=== PATIENT | female | born 1940 | race Caucasian/White ===

== ENCOUNTER → 2020-01-16 11:17 | Outpatient (CLI) | payer MEDICARE, MEDICAID, SELFPAY ==
--- NOTE | 2020-01-16 | DI.MRI.S_ITS ---
PROCEDURE: MR HIP LT WO CON INDICATIONS: Pain in left hip TECHNIQUE: Noncontrast coronal T1 spin echo and STIR through the bony pelvis. Coronal and axial STIR, sagittal T1 spin echo, and oblique axial STIR through the hip. COMPARISON: None. FINDINGS: Image quality: Excellent. Bones and joints: Bilateral total hip arthroplasties are seen with associated metallic artifact that obscures adjacent structures. Bone marrow of the pelvic ring show normal signal throughout. No intraosseous lesions or fractures. Degenerative changes are seen in the included portion of the lower lumbar spine with disc desiccation, degenerative endplate changes, and facet hypertrophy. Tendons and ligaments: There is mild tendinosis of the distal left gluteus medius and minimus tendons at their insertions onto the left greater trochanter within overlying small trochanteric effusion. The right gluteus tendons are intact. The iliopsoas tendon appears intact. The origin of the hamstring tendon is intact at the ischial tuberosity. The straight and reflected heads of the rectus femoris muscle origin appear intact, as well as the conjoint tendon. Soft tissues: There is mild diffuse fatty infiltration of the musculature surrounding the hips. The proximal sciatic neurovascular bundle appears normal adjacent to the hamstring tendons. No free pelvic fluid. Bladder wall thickness is normal. Genitourinary structures and bowel loops appear normal where visualized. IMPRESSION: 1. Bilateral total hip arthroplasties. No periarticular fluid collection or mass is seen. There is no acute trabecular bone injury. 2. Mild left distal gluteus medius and minimus tendinosis with an overlying small left trochanteric bursal effusion. 3. Degenerative changes are seen in the included portion of the lower lumbar spine. Dictated by: Dejon Pickard M.D. on 01/16/2020 at 13:50 Approved by: Dejon Pickard M.D. on 01/16/2020 at 14:01
== END ==
PROVIDERS: Family Provider Family Medicine; PCP Family Medicine; Referring Provider Family Medicine; Visit Provider Family Medicine
DX: M25.552 Pain in left hip (principal); M25.452 Effusion, left hip; M47.816 Spondylosis without myelopathy or radiculopathy, lumbar region; Z96.643 Presence of artificial hip joint, bilateral
CPT/HCPCS: 73721

== ENCOUNTER → 2020-08-29 11:08 | Outpatient (CLI) | payer MEDICARE, MEDICAID, SELFPAY | PROVIDERS: Family Provider Family Medicine; PCP Family Medicine; Visit Provider Physician Assistant Medical | DX: R81 Glycosuria (principal) | CPT/HCPCS: 87077; 87086; 87186 ==

== ENCOUNTER → 2020-09-20 13:41 | Outpatient (CLI) | payer MEDICARE, MEDICAID, SELFPAY ==
[2020-09-20 20:23] LABS: Appearance Urine UA CLEAR; Bilirubin Urine UA NEGATIVE (NEGATIVE); Color Urine UA YELLOW; Glucose Urine UA 1+ g/dL (Negative); Ketones Urine UA NEGATIVE (NEGATIVE); Leukocyte Esterase Urine UA NEGATIVE (NEGATIVE); Nitrite Urine UA NEGATIVE (Negative); Occult Blood Urine UA 2+ (Negative); Protein Urine UA 1+ (Negative); Urobilinogen Urine UA 0.2 E.U./dL (0.2)
[2020-09-20 20:42] LABS: Amorphous Sediment Urine 1+; Bacteria Urine Few (2-10); Mucus Urine 1+ (Negative); RBC Urine 10-30/HPF (0-5/HPF); Squamous Epithelial Cell Urine 1-5 /HPF (0-5/HPF); WBC Urine 10-30/HPF (0-5/HPF)
[2020-09-20 20:43] LABS: Culture Indicated Urine Specimen Cultured
== END ==
PROVIDERS: Family Provider Family Medicine; PCP Family Medicine; Visit Provider Physician Assistant Medical
DX: N39.0 Urinary tract infection, site not specified (principal); E11.65 Type 2 diabetes mellitus with hyperglycemia; N39.9 Disorder of urinary system, unspecified
CPT/HCPCS: 81001; 87077; 87086; 87186

== ENCOUNTER → 2020-10-15 16:53 | Outpatient (CLI) | payer MEDICARE, MEDICAID, SELFPAY | PROVIDERS: Family Provider Family Medicine; PCP Family Medicine; Visit Provider Family Medicine | DX: N39.0 Urinary tract infection, site not specified (principal); N39.9 Disorder of urinary system, unspecified | CPT/HCPCS: 87086 ==

== ENCOUNTER → 2020-10-26 11:29 | Outpatient (CLI) | payer MEDICARE, MEDICAID, SELFPAY ==
[2020-10-26 18:55] LABS: Add Manual Diff / Slide Review NO; Basophils Absolute Auto 0 /uL (0-100); Basophils Percent Auto 0.5 % (0-2); Eosinophils Absolute Auto 400 /uL (0-450); Eosinophils Percent Auto 4.6 % (2-4); Hematocrit 45.4 % (36-46); Hemoglobin 15.3 g/dL (12.0-16.0); Lymphocytes Absolute Auto 3400 /uL (1100-4500); Lymphocytes Percent Auto 43.9 % (25-40); Mean Corpuscular HGB Conc 33.7 % (30-36); Mean Corpuscular Hemoglobin 30.7 PG (26-34); Mean Corpuscular Volume 91.1 fL (80-100); Monocytes Absolute Auto 400 /uL (0-900); Monocytes Percent Auto 5.8 % (3-14); Neutrophils Absolute Auto 3500 /uL (1500-7000); Neutrophils Percent Auto 45.2 % (50-75); Platelet Count 203 X10^3/uL (150-400); Red Blood Cell Count 4.98 X10^6/uL (4.0-5.2); Red Cell Distribution Width 14.5 % (11.6-14.8); White Blood Cell Count 7.8 X10^3/uL (4.5-11.0)
[2020-10-26 19:01] LABS: Alanine Aminotransferase 80 IU/L (<35); Albumin 4.1 g/dL (3.5-5.0); Alkaline Phosphatase 108 U/L (38-126); Aspartate Aminotransferase 78 IU/L (14-36); BUN Creatinine Ratio 14.1 (6-22); Bilirubin Total 0.8 mg/dL (0.2-1.3); Blood Urea Nitrogen 9 mg/dL (7-17); Calcium 9.6 mg/dL (8.4-10.2); Carbon Dioxide 30 mmol/L (22-32); Chloride 100 mmol/L (98-107); Cholesterol 169 mg/dL (140-199); Estimated Glomerular Filt Rate > 60.0 mL/min (>60); Globulin 4.2 g/dL (1.7-4.1); Glucose 222 mg/dL (80-110); HDL Cholesterol 34 mg/dL (40-60); HEMOLYSIS < 15 (0-50); LDL Cholesterol Calculated 109 mg/dL (<100); Potassium 4.1 mmol/L (3.4-5.1); Sodium 139 mmol/L (137-145); Total Protein 8.3 g/dL (6.3-8.2); Triglycerides 131 mg/dL (35-150)
[2020-10-26 19:05] LABS: Hemoglobin A1C% w Est Avg Glu 9.6 % (4.0-6.0)
[2020-10-30 07:15] LABS: Insulin Level Total 21.9 uIU/mL (2.6-24.9)
== END ==
PROVIDERS: Family Provider Family Medicine; PCP Family Medicine; Visit Provider Family Medicine
DX: E11.65 Type 2 diabetes mellitus with hyperglycemia (principal); E66.9 Obesity, unspecified; E78.5 Hyperlipidemia, unspecified; I10 Essential (primary) hypertension
CPT/HCPCS: 80053; 80061; 83036; 83525; 85025

== ENCOUNTER → 2020-12-10 09:19 | Outpatient (CLI) | payer MEDICARE, MEDICAID, SELFPAY ==
[2020-12-10 20:01] LABS: Hemoglobin A1C% w Est Avg Glu 9.4 % (4.0-6.0)
[2020-12-10 20:08] LABS: Alanine Aminotransferase 99 IU/L (<35); Albumin 4.1 g/dL (3.5-5.0); Alkaline Phosphatase 102 U/L (38-126); Aspartate Aminotransferase 107 IU/L (14-36); BUN Creatinine Ratio 17.5 (6-22); Blood Urea Nitrogen 10 mg/dL (7-17); Calcium 9.6 mg/dL (8.4-10.2); Carbon Dioxide 24 mmol/L (22-32); Chloride 103 mmol/L (98-107); Estimated Glomerular Filt Rate > 60.0 mL/min (>60); Glucose 243 mg/dL (80-110); HEMOLYSIS 31 (0-50); Potassium 4.3 mmol/L (3.4-5.1); Sodium 139 mmol/L (137-145); Total Protein 8.1 g/dL (6.3-8.2)
== END ==
PROVIDERS: Family Provider Family Medicine; PCP Family Medicine; Visit Provider Family Medicine
DX: E11.65 Type 2 diabetes mellitus with hyperglycemia (principal); R74.01 Elevation of levels of liver transaminase levels
CPT/HCPCS: 80053; 83036

== ENCOUNTER → 2021-02-18 10:34 | Outpatient (CLI) | payer MEDICARE, MEDICAID, SELFPAY ==
[2021-02-18 20:05] LABS: BUN Creatinine Ratio 15.9 (6-22); Blood Urea Nitrogen 10 mg/dL (7-17); Calcium 9.9 mg/dL (8.4-10.2); Carbon Dioxide 30 mmol/L (22-32); Chloride 101 mmol/L (98-107); Cholesterol 198 mg/dL (140-199); Estimated Glomerular Filt Rate > 60.0 mL/min (>60); Glucose 217 mg/dL (80-110); HDL Cholesterol 39 mg/dL (40-60); HEMOLYSIS 16 (0-50); LDL Cholesterol Calculated 131 mg/dL (<100); Potassium 4.1 mmol/L (3.4-5.1); Sodium 141 mmol/L (137-145); Triglycerides 140 mg/dL (35-150)
== END ==
PROVIDERS: Family Provider Family Medicine; PCP Physician Assistant Medical; Visit Provider Family Medicine
DX: E11.65 Type 2 diabetes mellitus with hyperglycemia (principal)
CPT/HCPCS: 80048; 80061; 83036

== ENCOUNTER → 2021-04-15 13:47 | Outpatient (CLI) | payer MEDICARE, MEDICAID, SELFPAY ==
[2021-04-15 20:23] LABS: Hemoglobin A1C% w Est Avg Glu 7.3 % (4.0-6.0)
[2021-04-15 20:26] LABS: BUN Creatinine Ratio 17.6 (6-22); Blood Urea Nitrogen 13 mg/dL (7-17); Calcium 9.9 mg/dL (8.4-10.2); Carbon Dioxide 28 mmol/L (22-32); Chloride 101 mmol/L (98-107); Estimated Glomerular Filt Rate > 60.0 mL/min (>60); Glucose 234 mg/dL (80-110); HEMOLYSIS 20 (0-50); Sodium 142 mmol/L (137-145)
== END ==
PROVIDERS: Family Provider Family Medicine; PCP Physician Assistant Medical; Referring Provider Family Medicine; Visit Provider Family Medicine
DX: E11.65 Type 2 diabetes mellitus with hyperglycemia (principal)
CPT/HCPCS: 80048; 83036

== ENCOUNTER 2021-04-30 11:00 | Outpatient (RCR) | payer MEDICARE, MEDICAID, SELFPAY ==
--- NOTE | 2021-04-30 15:53 | PT.OIE ---
Current Diagnoses Bilateral primary osteoarthritis of hip (04/30/21) Past Medical History (Last Updated 04/05/21 @ 10:13 by Lowell Weathers DO) Bilateral primary osteoarthritis of hip H/O total hip arthroplasty Scoliosis Urinary tract disease (~2020) Past Surgical History (Last Updated 09/16/20 @ 15:11 by Alana Villalobos) Anesthesia H/O total hip arthroplasty Status post hernia repair Visit Care Team Role Provider Type Wenceslao Bynum MD Family Provider Non-Staff Specialty: [facility] Address: [address] [place] [address], [address], [place], [address] Email: Lowell Weathers DO Attending Provider Physician Primary Care Provider Referring Provider Specialty: [facility] Address: [address] [place] [address], [id number] Email: [email or web address] Physical Therapy Initial Evaluation PT-OP-A Visit Information Start: 04/25/21 10:32 Freq: Status: Active Protocol: Document 04/30/21 11:15 AMB (Rec: 04/30/21 15:44 AMB [email or web address]) Out-Patient Physical Therapy Visit Information Visit Information Visit Type Initial Evaluation Visit Start Time 11:15 Visit Stop Time 12:00 Total Visit Minutes 45 Visit Number 1 PT-OP-B Current Condition Start: 04/25/21 10:32 Freq: Status: Active Protocol: Document 04/30/21 11:16 AMB (Rec: 04/30/21 11:34 AMB [id number]) Current Condition History of Current Condition Onset Date 4 years ago Current Complaints L>R hip pain History of Current Condition L PUNEET 4 years ago. Pain has come and gone over the past 4 years. Walking makes the pain worse, ambulates in the community with the cane. Posterior approach bilateral. Notes deep ache, pain goes down the front of the leg and into the foot. Lying on the left side is the most comfortable. Sometimes feels like the leg could give way, but it hasn't. Ambulates in the community with a cane. Treatment Goals Patient/Caregiver Goals Walk with less pain and more stability. Personal Factors Other Personal Factors That May Effect Pt lives on [facility], and Therapy/Recovery half way through appointment states that she only wants to come to one appointment. PT-OP-G Mobility & Gait Start: 04/25/21 10:32 Freq: Status: Active Protocol: Document 04/30/21 11:15 AMB (Rec: 05/02/21 08:59 AMB [email or web address]) OP Mobility Evaluation Bed Mobility Rolling Difficult, heavy use of UEs, but pt independent OP Gait Assessment Comments Gait Comments Antalgic gait with WBOS PT-OP-M Strength Start: 04/25/21 10:32 Freq: Status: Active Protocol: Document 04/30/21 11:15 AMB (Rec: 05/02/21 08:59 AMB [email or web address]) Hip Strength Hip Manual Muscle Testing Right Flexion (L2) 4 Good Extension (S1) 4 Good Abduction 4 Good Left Flexion (L2) 3 Fair Extension (S1) 3- Fair- Abduction 3 Fair PT-OP-Q Treatments Start: 04/25/21 10:32 Freq: Status: Active Protocol: Document 04/30/21 11:15 AMB (Rec: 05/02/21 09:01 AMB [email or web address]) Therapeutic Exercises Sidelying Exercises 3 Sidelying Exercise Name mini squat Reps/Minutes 10 2 Sidelying Exercise Name bridge Reps/Minutes 10 1 Sidelying Exercise Name clam Reps/Minutes 10 Manual Therapy Treatment Other Other Manual Treatments instruction in self rolling with rolling pin or tennis ball over IT band PT-OP-T Assessment and Plan Start: 04/25/21 10:32 Freq: Status: Active Protocol: Document 04/30/21 11:15 AMB (Rec: 05/03/21 15:50 AMB [email or web address]) Physical Therapy Assessment Rehab Potential Rehabilitation Potential Good Evaluation Complexity Number of Personal Factors/Comorbidities 3 or More Number of Body Systems Impaired 3 Clinical Presentation at Evaluation Evolving Impairments Impairments Functional Activities, Functional Mobility,Pain, Strength Goals One Impairment HEP Short Term Goal (STG) Madeline will have a HEP for hip strengthening. STG Duration 1 week Assessment Summary Assessment Madeline attends physical therapy with chronic hip pain. She was apparently unaware of her hip MRI from 2019, and did discuss tendonitis of gluteus medius and minimis wiht her. She is not interested in follow up at this clinic at this time due to needing to take a ferry to PT. Did provide her a home exercise program that consisted of clamshells, bridges, mini squats, and rolling IT band with roller. Physical Therapy Plan Frequency and Duration Frequency of Treatment 1x/Week Duration of Treatment 1 week Plan of Care Start Date 04/30/21 Plan of Care End Date 05/07/21 Therapeutic Interventions Therapeutic Interventions Manual Therapy,Therapeutic Exercises Discharge Physical Therapy Discharge Reasons Patient Request Discharge Comments Pt did not want to schedule further due to distance of clinic from her home
--- NOTE | 2021-04-30 15:54 | PT.OPPOC ---
Physical, Occupational & Speech Therapy At [facility] Current Diagnoses Bilateral primary osteoarthritis of hip (04/30/21) Visit Care Team Role Provider Type Wenceslao Bynum MD Family Provider Non-Staff Specialty: Family Practice Address: [address] , [address], [place], [address] Email: Lowell Weathers DO Attending Provider Physician Primary Care Provider Referring Provider Specialty: Family Practice Address: [address] [place] [address], [id number] Email: [email or web address] Plan Of Care PT-OP-T Assessment and Plan Start: 04/25/21 10:32 Freq: Status: Active Protocol: Document 04/30/21 11:15 AMB (Rec: 05/03/21 15:50 AMB [email or web address]) Physical Therapy Assessment Rehab Potential Rehabilitation Potential Good Evaluation Complexity Number of Personal Factors/Comorbidities 3 or More Number of Body Systems Impaired 3 Clinical Presentation at Evaluation Evolving Impairments Impairments Functional Activities, Functional Mobility,Pain, Strength Goals One Impairment HEP Short Term Goal (STG) Madeline will have a HEP for hip strengthening. STG Duration 1 week Assessment Summary Assessment Madeline attends physical therapy with chronic hip pain. She was apparently unaware of her hip MRI from 2019, and did discuss tendonitis of gluteus medius and minimis wiht her. She is not interested in follow up at this clinic at this time due to needing to take a ferry to PT. Did provide her a home exercise program that consisted of clamshells, bridges, mini squats, and rolling IT band with roller. Physical Therapy Plan Frequency and Duration Frequency of Treatment 1x/Week Duration of Treatment 1 week Plan of Care Start Date 04/30/21 Plan of Care End Date 05/07/21 Therapeutic Interventions Therapeutic Interventions Manual Therapy,Therapeutic Exercises Discharge Physical Therapy Discharge Reasons Patient Request Discharge Comments Pt did not want to schedule further due to distance of clinic from her home Plan of Care Dates Plan of Care Start Date 04/30/21 Plan of Care End Date 05/07/21 Electronically Signed by: Kaleigh Matta, PT 05/03/21 1554 Please Sign and Return: I have reviewed this Plan of Care and certify that the skilled therapy services above are required to meet the patient?s needs. Physician Signature Date Printed Name and Credentials Clinical Instructor Signature Printed Name and Credentials
== END 2021-06-25 08:56 ==
LOC: PHYS 11:00
PROVIDERS: Family Provider Family Medicine; PCP Family Medicine; Referring Provider Family Medicine; Visit Provider Family Medicine
DX: M16.0 Bilateral primary osteoarthritis of hip (principal)
CPT/HCPCS: 97110; 97161

== ENCOUNTER → 2021-10-18 10:03 | Outpatient (CLI) | payer MEDICARE, MEDICAID, SELFPAY ==
[2021-10-18 18:44] LABS: Alanine Aminotransferase 36 IU/L (<35); Albumin 3.9 g/dL (3.5-5.0); Albumin Globulin Ratio 1.1 (1.0-2.8); Alkaline Phosphatase 70 U/L (38-126); Aspartate Aminotransferase 43 IU/L (14-36); BUN Creatinine Ratio 15.4 (6-22); Bilirubin Total 0.9 mg/dL (0.2-1.3); Blood Urea Nitrogen 12 mg/dL (7-17); Calcium 8.9 mg/dL (8.4-10.2); Carbon Dioxide 27 mmol/L (22-32); Chloride 104 mmol/L (98-107); Cholesterol 100 mg/dL (140-199); Estimated Glomerular Filt Rate > 60 mL/min (>60); Globulin 3.6 g/dL (1.7-4.1); Glucose 153 mg/dL (80-110); HDL Cholesterol 32 mg/dL (40-60); HEMOLYSIS < 15 (0-50); LDL Cholesterol Calculated 47 mg/dL (<100); Potassium 4.3 mmol/L (3.4-5.1); Sodium 142 mmol/L (137-145); Total Protein 7.5 g/dL (6.3-8.2); Triglycerides 106 mg/dL (35-150)
== END ==
PROVIDERS: Family Provider Family Medicine; PCP Family Medicine; Visit Provider Family Medicine
DX: I10 Essential (primary) hypertension (principal); E11.65 Type 2 diabetes mellitus with hyperglycemia; E11.49 Type 2 diabetes mellitus with other diabetic neurological complication; Z79.4 Long term (current) use of insulin
CPT/HCPCS: 80053; 80061; 83036

== ENCOUNTER 2021-11-14 21:18 | Inpatient (IN) | payer MEDICARE, MEDICAID, SELFPAY ==
[2021-11-14] VITALS (28 sets, daily range): BP systolic 142–247; BP diastolic 57–137; PULSE 63–78; RESP 24–43; TEMP 37.2; O2SAT 94–96
--- NOTE | 2021-11-14 21:45 | ED.GENADULT ---
HPI - General Adult General Chief complaint: Hypertension Stated complaint: high blood pressure Time Seen by Provider: 11/14/21 21:31 Source: patient and EMS Mode of arrival: EMS History of Present Illness HPI narrative: Patient stat flighted here from [place]. Patient has hypertensive urgency. Patient states has had recent visit with primary care Dr. Weathers in the past couple days for routine checkup for past history of stroke. No changes in medications. Does have history of high blood pressure. Was given 20 mg of IV labetalol by stat Flight nurse. No improvement. Arrival blood pressure here 247/111. Patient in no distress. Denies any headache chest pain palpitations dyspnea. No new neuro complaints. Nicardipine drip ordered, denies any headache. Patient denies any residual deficits from her stroke. Blood pressure November 05, 2021 in primary care office with Dr. Weathers 144/82. Office visit September 30, 2021 blood pressure 140/88. Related Data Home Medications Medication Instructions Recorded Confirmed aspirin 81 mg tablet,delayed 81 mg PO DAILY 08/09/21 08/09/21 release (Adult Aspirin Regimen) melatonin 3 mg capsule 3 mg PO BEDTIME PRN 08/09/21 08/09/21 sennosides 8.6 mg tablet (senna) 8.6 mg PO DAILY 08/09/21 08/09/21 Previous Rx's Medication Instructions Recorded sitagliptin 50 mg tablet 50 mg PO BID #60 tabs 07/19/21 chlorthalidone 25 mg tablet 25 mg PO DAILY #60 tabs 08/28/21 atorvastatin 80 mg tablet 80 mg PO DAILY #30 tabs 08/29/21 insulin aspart U-100 100 unit/mL 3 unit (0.03 mL) SUBCUT TID #3 mL 08/29/21 (3 mL) subcutaneous pen (Novolog Flexpen U-100 Insulin aspart) insulin glargine 100 unit/mL (3 20 unit (0.2 mL) SUBCUT QAM #3 mL 08/29/21 mL) subcutaneous pen (Lantus Solostar U-100 Insulin) pen needle, diabetic 32 gauge x #100 ea 09/18/21 (BD Mya 2nd Gen Pen Needle) clopidogrel 75 mg tablet 75 mg PO DAILY #30 tabs 09/30/21 gabapentin 100 mg capsule 200 mg PO BEDTIME #100 caps 09/30/21 hydralazine 25 mg tablet 25 mg PO TID #90 tabs 09/30/21 carvedilol 25 mg tablet See Rx Instructions .Route 10/15/21 .COMPLEX #90 tabs Allergies Allergy/AdvReac Type Severity Reaction Status Date / Time clonidine Allergy Verified 11/14/21 21:20 hydrochlorothiazide Allergy Verified 11/14/21 21:20 Sulfa (Sulfonamide Allergy RASH Verified 11/14/21 21:20 Antibiotics) amlodipine [AMLODIPINE] AdvReac Intermediate DIZZY, Verified 11/14/21 21:20 MEMORY LOSS lisinopril [LISINOPRIL] AdvReac Intermediate FATIGUE Verified 11/14/21 21:20 SODIUM TETRADECYL SULFATE Allergy Uncoded 12/17/20 14:46 clorine AdvReac Mild Uncoded 12/17/20 14:46 Review of Systems Review of Systems Narrative: GENERAL: Denies chills, fatigue, malaise, fever, sweats. HEENT: Denies sinus pain, ear pain, sore throat RESPIRATORY: Denies dyspnea, cough CARDIOVASCULAR: Denies chest pain, palpitations GASTROINTESTINAL: Denies nausea, vomiting, abdominal pain : Denies dysuria, frequency, hematuria MUSCULOSKELETAL: denies muscle or bony pain SKIN: Denies rash, skin lesions NEUROLOGIC: Denies weakness, numbness ROS Unobtainable: All systems reviewed & are unremarkable except as noted in HPI and below Patient History Medical History Bilateral primary osteoarthritis of hip Cerumen impaction Hypertension Scoliosis Urinary tract disease (~2020) Vision changes Surgical History Anesthesia H/O total hip arthroplasty Status post hernia repair Family History Brother Suicide Mother Old age Father MVA (motor vehicle accident) Social History household members: significant other Smoking Status: Former smoker Smoking Status: Former smoker Substance Use Type: marijuana Exam Narrative Exam Narrative: GENERAL: in no distress, not toxic not dyspneic HEAD: Normocephalic. EYES: Pupils equal round No scleral icterus. ENT: Mucous membranes moist. NECK: Trachea midline. CARDIOVASCULAR: Regular rate and rhythm without murmurs RESPIRATORY: Clear to auscultation. Breath sounds equal bilaterally. No wheezes, rales, or rhonchi. GASTROINTESTINAL: Abdomen soft, non-tender EXTREMITIES: No gross deformities. BACK: No flank tenderness. NEURO: AOx4. Clear speech, strong equal sales analytics manager and leg lifts. Light touch intact to bilateral face hands and legs. Negative pronator drift. No facial droop SKIN: Warm and dry PSYCH: Not anxious, is cooperative Initial Vital Signs Initial Vital Signs: Vital Signs Temperature 98.9 F 11/14/21 21:20 Pulse Rate 71 11/14/21 21:20 Respiratory Rate 24 11/14/21 21:20 Pulse Oximetry 95 11/14/21 21:20 Oxygen Delivery Method 11/14/21 21:20 Course Course Course Narrative: No new issues during course of stay Orders Ordered: Discontinued Medications Acetaminophen (Acetaminophen 325 Mg Tablet) 650 mg PO Q6HR PRN PRN Reason: Fever Aspirin (Aspirin Ec 81 Mg Tablet) 81 mg PO DAILY COUNTS INCLUDE 234 BEDS AT THE [facility] Last Admin: 11/15/21 09:21 Dose: 81 mg Documented By: JANEE Atorvastatin Calcium (Atorvastatin 20 Mg Tablet) 80 mg PO DAILY COUNTS INCLUDE 234 BEDS AT THE [facility] Last Admin: 11/15/21 09:22 Dose: 80 mg Documented By: JANEE Carvedilol (Carvedilol 12.5 Mg Tablet) 25 mg PO BID COUNTS INCLUDE 234 BEDS AT THE [facility] Last Admin: 11/15/21 09:21 Dose: 25 mg Documented By: JANEE Chlorthalidone (Chlorthalidone 25 Mg Tablet) 25 mg PO DAILY COUNTS INCLUDE 234 BEDS AT THE [facility] Last Admin: 11/15/21 09:22 Dose: 25 mg Documented By: JANEE Clopidogrel Bisulfate (Clopidogrel 75 Mg Tablet) 75 mg PO DAILY COUNTS INCLUDE 234 BEDS AT THE [facility] Last Admin: 11/15/21 09:22 Dose: 75 mg Documented By: JANEE Dextrose (Dextrose 50 % In Water 25 Gm/50 Ml Syringe) 25 gm IV PRN PRN PRN Reason: Hypoglycemia Enalapril Maleate (Enalapril 5 Mg Tablet) 10 mg PO DAILY COUNTS INCLUDE 234 BEDS AT THE [facility] Last Admin: 11/15/21 09:21 Dose: 10 mg Documented By: JANEE Enoxaparin Sodium (Enoxaparin 40 Mg/0.4 Ml Syringe) 40 mg SUBCUT DAILY COUNTS INCLUDE 234 BEDS AT THE [facility] Last Admin: 11/15/21 09:22 Dose: 40 mg Documented By: JANEE Enoxaparin Sodium (Enoxaparin 40 Mg/0.4 Ml Syringe) 40 mg SUBCUT DAILY UDAY Last Admin: 11/15/21 10:24 Dose: Not Given Documented By: Gabapentin (Gabapentin 100 Mg Capsule) 200 mg PO BEDTIME UDAY Hydralazine HCl (Hydralazine 25 Mg Tablet) 25 mg PO TID UDAY Last Admin: 11/15/21 09:22 Dose: 25 mg Documented By: JANEE Nicardipine HCl 25 mg/ Sodium (Chloride) 250 mls @ 50 mls/hr IV TITRATE UDAY; Protocol Last Titration: 11/15/21 19:44 Dose: 0 mg/hr, 0 mls/hr Documented By: Admin: 11/14/21 21:57 Dose: 5 mg/hr, 50 mls/hr Documented By: JEFF Sodium Chloride (Normal Saline 0.9%) 1,000 mls @ 100 mls/hr IV CONT UDAY Last Infusion: 11/15/21 11:36 Dose: 0 mls/hr Documented By: Admin: 11/15/21 01:33 Dose: 100 mls/hr Documented By: ABDULKADIR Nicardipine HCl 25 mg/ Sodium (Chloride) 250 mls @ 50 mls/hr IV TITRATE UDAY; Protocol Last Titration: 11/15/21 09:30 Dose: 0 mg/hr, 0 mls/hr Documented By: Admin: 11/15/21 02:04 Dose: 2.5 mg/hr, 25 mls/hr Documented By: ABDULKADIR Insulin Glargine (Insulin Glargine 100 Unit/Ml 3ml Pen) 20 unit SUBCUT 0800 UDAY Last Admin: 11/15/21 09:22 Dose: 20 unit Documented By: JANEE Co-signed By: Insulin Human Lispro (Insulin Lispro 100 Unit/Ml 3ml Vial) 0 unit SUBCUT ACHS UDAY; Protocol Last Admin: 11/15/21 11:52 Dose: Not Given Documented By: Admin: 11/15/21 08:44 Dose: Not Given Documented By: MOR Melatonin (Melatonin 3 Mg Tablet) 3 mg PO BEDTIME PRN PRN Reason: insomnia Last Admin: 11/15/21 01:34 Dose: 3 mg Documented By: ABDULKADIR Metoclopramide HCl (Metoclopramide 10 Mg/2 Ml Inj) 10 mg IV Q6HR PRN PRN Reason: Nausea And Vomiting Sennosides (Sennosides 8.6 Mg Tablet) 8.6 mg PO DAILY UDAY Last Admin: 11/15/21 09:21 Dose: 8.6 mg Documented By: JANEE Reevaluation(s) Reevaluation #1: No new issues during course of stay. Patient tolerating nicardipine drip very well. Time: 23:46 Consultations Consultation #1: Spoke with hospitalist, Nicole, will admit Vital Signs Vital signs: Vital Signs - 8 hr 11/14/21 21:20 11/14/21 21:30 11/14/21 21:37 Temperature 98.9 F Pulse Rate 71 78 68 Respiratory Rate 24 26 H 42 H Blood Pressure Pulse Oximetry 95 94 94 Oxygen Delivery Method Room Air 11/14/21 21:37 11/14/21 22:00 11/14/21 22:00 Temperature Pulse Rate 65 Respiratory Rate 25 H Blood Pressure 247/111 H 207/137 H Pulse Oximetry 94 Oxygen Delivery Method 11/14/21 22:06 11/14/21 22:06 11/14/21 22:12 Temperature Pulse Rate 66 Respiratory Rate 43 H Blood Pressure 208/88 H 189/86 H Pulse Oximetry 95 Oxygen Delivery Method 11/14/21 22:12 11/14/21 22:15 11/14/21 22:15 Temperature Pulse Rate 66 66 Respiratory Rate Blood Pressure 171/78 H Pulse Oximetry 95 95 Oxygen Delivery Method 11/14/21 22:20 11/14/21 22:20 11/14/21 22:25 Temperature Pulse Rate 67 65 Respiratory Rate Blood Pressure 163/75 H Pulse Oximetry 95 95 Oxygen Delivery Method 11/14/21 22:25 11/14/21 22:30 11/14/21 22:30 Temperature Pulse Rate 65 Respiratory Rate Blood Pressure 156/67 H 163/72 H Pulse Oximetry 95 Oxygen Delivery Method 11/14/21 22:35 11/14/21 22:35 11/14/21 22:40 Temperature Pulse Rate 66 Respiratory Rate Blood Pressure 151/57 H 149/68 H Pulse Oximetry 94 Oxygen Delivery Method 11/14/21 22:40 11/14/21 22:45 11/14/21 22:45 Temperature Pulse Rate 66 64 Respiratory Rate Blood Pressure 153/70 H Pulse Oximetry 94 95 Oxygen Delivery Method 11/14/21 22:50 11/14/21 22:50 11/14/21 22:55 Temperature Pulse Rate 65 64 Respiratory Rate Blood Pressure 164/73 H Pulse Oximetry 94 94 Oxygen Delivery Method 11/14/21 22:55 11/14/21 23:00 11/14/21 23:00 Temperature Pulse Rate 70 Respiratory Rate Blood Pressure 146/68 H 159/74 H Pulse Oximetry 95 Oxygen Delivery Method 11/14/21 23:05 11/14/21 23:05 11/14/21 23:10 Temperature Pulse Rate 69 Respiratory Rate Blood Pressure 152/65 H 150/60 H Pulse Oximetry 94 Oxygen Delivery Method 11/14/21 23:10 11/14/21 23:15 11/14/21 23:15 Temperature Pulse Rate 70 69 Respiratory Rate Blood Pressure 157/72 H Pulse Oximetry 95 96 Oxygen Delivery Method 11/14/21 23:20 11/14/21 23:20 11/14/21 23:25 Temperature Pulse Rate 65 66 Respiratory Rate Blood Pressure 150/68 H Pulse Oximetry 96 96 Oxygen Delivery Method 11/14/21 23:25 Temperature Pulse Rate Respiratory Rate Blood Pressure 158/69 H Pulse Oximetry Oxygen Delivery Method Medical Decision Making Differential Diagnosis Differential Diagnosis: Hypertensive urgency Lab Data Result diagrams: 11/15/21 03:55 11/15/21 03:55 Labs: Lab Results 11/14/21 11/14/21 11/14/21 Range/Units 21:48 21:48 21:48 WBC 7.9 (4.5-11.0) X10^3/uL RBC 4.30 (4.0-5.2) X10^6/uL Hgb 12.8 (12.0-16.0) g/dL Hct 38.5 (36-46) % MCV 89.4 (80-100) fL MCH 29.8 (26-34) PG MCHC 33.4 (30-36) % RDW 14.4 (11.6-14.8) % Plt Count 212 (150-400) X10^3/uL Neut % (Auto) 63.0 (50-75) % Lymph % (Auto) 27.4 (25-40) % [place] % (Auto) 6.4 (3-14) % Eos % (Auto) 2.2 (2-4) % Baso % (Auto) 1.0 (0-2) % Neut # (Auto) 5000 (4966-3454) /uL Lymph # (Auto) 2200 (2529-3891) /uL [place] # (Auto) 500 (0-900) /uL Eos # (Auto) 200 (0-450) /uL Baso # (Auto) 100 (0-100) /uL PT 13.2 H (10.1-12.7) SECONDS INR 1.2 (0.9-1.3) APTT 34 (26.4-36.2) SECONDS Sodium 142 (137-145) mmol/L Potassium 3.9 (3.4-5.1) mmol/L Chloride 105 (98-107) mmol/L Carbon Dioxide 30 (22-32) mmol/L BUN 12 (7-17) mg/dL Creatinine 0.67 (0.52-1.04) mg/dL Estimated GFR > 60 (>60) mL/min BUN/Creatinine Ratio 17.9 (6-22) Glucose 149 H (80-110) mg/dL Hemoglobin A1c (4.0-6.0) % Calcium 8.7 (8.4-10.2) mg/dL Total Bilirubin 0.8 (0.2-1.3) mg/dL AST 47 H (14-36) IU/L ALT 36 H (<35) IU/L Alkaline Phosphatase 70 (38-126) U/L Total Creatine Kinase 40 (30-135) U/L CK-MB (CK-2) TNP CK-MB (CK-2) Rel Index TNP Troponin I 0.020 (0.01-0.034) ng/mL Total Protein 7.9 (6.3-8.2) g/dL Albumin 4.0 (3.5-5.0) g/dL Globulin 3.9 (1.7-4.1) g/dL Albumin/Globulin Ratio 1.0 (1.0-2.8) SARS-CoV-2 (PCR) (Negative) 11/14/21 11/14/21 Range/Units 21:48 21:48 WBC (4.5-11.0) X10^3/uL RBC (4.0-5.2) X10^6/uL Hgb (12.0-16.0) g/dL Hct (36-46) % MCV (80-100) fL MCH (26-34) PG MCHC (30-36) % RDW (11.6-14.8) % Plt Count (150-400) X10^3/uL Neut % (Auto) (50-75) % Lymph % (Auto) (25-40) % [place] % (Auto) (3-14) % Eos % (Auto) (2-4) % Baso % (Auto) (0-2) % Neut # (Auto) (7553-9364) /uL Lymph # (Auto) (8278-2223) /uL [place] # (Auto) (0-900) /uL Eos # (Auto) (0-450) /uL Baso # (Auto) (0-100) /uL PT (10.1-12.7) SECONDS INR (0.9-1.3) APTT (26.4-36.2) SECONDS Sodium (137-145) mmol/L Potassium (3.4-5.1) mmol/L Chloride (98-107) mmol/L Carbon Dioxide (22-32) mmol/L BUN (7-17) mg/dL Creatinine (0.52-1.04) mg/dL Estimated GFR (>60) mL/min BUN/Creatinine Ratio (6-22) Glucose (80-110) mg/dL Hemoglobin A1c 6.9 H (4.0-6.0) % Calcium (8.4-10.2) mg/dL Total Bilirubin (0.2-1.3) mg/dL AST (14-36) IU/L ALT (<35) IU/L Alkaline Phosphatase (38-126) U/L Total Creatine Kinase (30-135) U/L CK-MB (CK-2) CK-MB (CK-2) Rel Index Troponin I (0.01-0.034) ng/mL Total Protein (6.3-8.2) g/dL Albumin (3.5-5.0) g/dL Globulin (1.7-4.1) g/dL Albumin/Globulin Ratio (1.0-2.8) SARS-CoV-2 (PCR) Negative (Negative) ECG Data Interpretation: Normal sinus rhythm rate [address] elevation or depression. Normal EKG MDM Narrative Medical decision making narrative: Appropriate for admission recurring nicardipine drip and ICU admission. Patient has failed labetalol by stat Flight. Patient otherwise neurovascularly intact. No complaints of pain or any new neuro deficits Critical Care Time Critical Care Time Attestation: Critical Care Time 35 minutes: Critical care time is separate from other billable procedures. This critical care time includes consultation with family and other consulting doctors, review of records, and interpretation of data from labs, EKGs, imaging, etc. Discharge Plan Departure Patient Disposition: Admitted As Inpatient Clinical Impression: Hypertensive urgency Admit Date/Time: 11/14/21 23:52 Admit Provider: Alana Agarwal
[2021-11-14 21:56] LABS: Add Manual Diff / Slide Review NO; Basophils Absolute Auto 100 /uL (0-100); Eosinophils Absolute Auto 200 /uL (0-450); Eosinophils Percent Auto 2.2 % (2-4); Hematocrit 38.5 % (36-46); Hemoglobin 12.8 g/dL (12.0-16.0); Lymphocytes Absolute Auto 2200 /uL (1100-4500); Lymphocytes Percent Auto 27.4 % (25-40); Mean Corpuscular HGB Conc 33.4 % (30-36); Mean Corpuscular Hemoglobin 29.8 PG (26-34); Mean Corpuscular Volume 89.4 fL (80-100); Monocytes Absolute Auto 500 /uL (0-900); Monocytes Percent Auto 6.4 % (3-14); Neutrophils Absolute Auto 5000 /uL (1500-7000); Platelet Count 212 X10^3/uL (150-400); Red Cell Distribution Width 14.4 % (11.6-14.8); White Blood Cell Count 7.9 X10^3/uL (4.5-11.0)
[2021-11-14] MEDS: NICARDIPINE 25 MG in SODIUM CHLORIDE 0.9% 240 ML 50 MG IV (21:57)
[2021-11-14 22:06] LABS: INR 1.2 (0.9-1.3); Prothrombin Time 13.2 SECONDS (10.1-12.7)
[2021-11-14 22:08] LABS: PTT Partial Thromboplastin Tim 34 SECONDS (26.4-36.2)
[2021-11-14 22:09] LABS: Alanine Aminotransferase 36 IU/L (<35); BUN Creatinine Ratio 17.9 (6-22); Bilirubin Total 0.8 mg/dL (0.2-1.3); Blood Urea Nitrogen 12 mg/dL (7-17); Calcium 8.7 mg/dL (8.4-10.2); Carbon Dioxide 30 mmol/L (22-32); Chloride 105 mmol/L (98-107); Creatine Kinase 40 U/L (30-135); Estimated Glomerular Filt Rate > 60 mL/min (>60); Globulin 3.9 g/dL (1.7-4.1); Glucose 149 mg/dL (80-110); Sodium 142 mmol/L (137-145); Total Protein 7.9 g/dL (6.3-8.2)
[2021-11-14 22:11] LABS: HEMOLYSIS 58 (0-50)
[2021-11-14 22:15] LABS: Alkaline Phosphatase 70 U/L (38-126); Aspartate Aminotransferase 47 IU/L (14-36); COVID19 -Nasal RAPID Negative (Negative); Potassium 3.9 mmol/L (3.4-5.1)
[2021-11-15] VITALS (26 sets, daily range): BP systolic 136–196; BP diastolic 59–85; PULSE 54–75; RESP 13–20; TEMP 36.6–36.8; O2SAT 92–97; BMI 32.8
--- NOTE | 2021-11-15 00:30 | P.HP_ITS ---
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. Her partner had taken her blood pressure and it was quite high. Adam administered IV labetalol 20 mg with no improvement and upon arrival to the emergency department her blood pressure was 247/111. Patient denies headache, chest pain she does endorse having dyspnea with exertion she attributes to the hot weather. She denies palpitations, she denies nausea vomiting, she does have urinary hesitancy where she feels that she has to push to complete urination. She had diarrhea this morning she attributes to taking herbal laxatives. She does endorse feeling anxious she characterizes as feeling ?tight? due to EMT showing up, getting administered medications, being air flighted, and waiting a long time in the emergency department. She requested a sedative and was offered melatonin and stated to me ?I do not want to try anything new, all keep doing my deep breathing to try to calm down. No imaging studies were done in the emergency department. Patient is afebrile, blood pressure initially was 241/111 and currently it is 164/70, heart rate 71, respiratory rate 18, oxygen saturation of 96% on room air, she weighs 98 kg with a BMI of 32.8. CBC is unremarkable, glucose is 149, A1c is pending, AST and ALT are both elevated at 47 and 36 respectively, and troponin is 0.020, COVID-19 PCR is negative. Patient was started on a nicardipine drip, ICU tele print operator usually request that the blood pressure not be dropped to any more than 25% the presenting blood pressure for the next 24 hours. In July 20 of this year she was admitted to [facility] with a right-sided occipital infarct and discharged to rehab on July 26 of this year. She had apparently fallen in the bathroom of a gas station and was unable to get up. She had headache and generalized weakness for 24 hours prior to admission. At that time the CT indicated a subacute right VERSE WRITER infarction with mild mass effect and the CTA of the head and neck indicated multiple areas of stenosis including the right M1, M2, near occlusion of the left A1 segment, focal stenosis of the left MCA, right vertebral artery occlusion, left superior cerebellar artery occluded, right VERSE WRITER near occluded at approximately P2 segment and proximal left ICA with high-grade stenosis. Due to the time of the actual stroke she was not qualified for tPA therapy. She was initiated on dual anti- platelet therapy for 90 days and is supposed to be continuing with aspirin daily. At that time her hemoglobin A1c was 10 and then went into rehab on discharge from [facility]. She then saw vascular surgery on October 02 and has a follow-up appointment to consider doing and and her endarterectomy of the left carotid artery. 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 Family history: Mother in her 90s of ?old age?. Father in a motor vehicle accident in his 40s. There is notation in the chart that she had a brother that by suicide. Patient History Medical History Bilateral primary osteoarthritis of hip Cerumen impaction Hypertension Scoliosis Urinary tract disease (~2020) Vision changes Surgical History Anesthesia H/O total hip arthroplasty Status post hernia repair Family & Social History Family History Brother Suicide Mother Old age Father MVA (motor vehicle accident) Safety & Behavioral: Feels Safe in Current Yes Environment Been Physically Hurt or No Threatened By a Person Tobacco & Substance use: Smoking Status Former smoker Substance Use Type marijuana Meds Home Medications and Allergies Home Medications Medication Instructions Recorded Confirmed Type sitagliptin 50 mg tablet 50 mg PO BID #60 tabs 07/19/21 08/09/21 Rx acetaminophen 325 mg capsule 325 mg PO ONCE PRN 08/09/21 08/09/21 History aspirin 81 mg tablet,delayed 81 mg PO DAILY 08/09/21 08/09/21 History release (Adult Aspirin Regimen) melatonin 3 mg capsule 3 mg PO BEDTIME PRN 08/09/21 08/09/21 History sennosides 8.6 mg tablet (senna) 8.6 mg PO DAILY 08/09/21 08/09/21 History chlorthalidone 25 mg tablet 25 mg PO DAILY #60 tabs 08/28/21 Rx atorvastatin 80 mg tablet 80 mg PO DAILY #30 tabs 08/29/21 Rx insulin aspart U-100 100 unit/mL 3 unit (0.03 mL) SUBCUT TID #3 mL 08/29/21 Rx (3 mL) subcutaneous pen (Novolog Flexpen U-100 Insulin aspart) insulin glargine 100 unit/mL (3 20 unit (0.2 mL) SUBCUT QAM #3 mL 08/29/21 Rx mL) subcutaneous pen (Lantus Solostar U-100 Insulin) pen needle, diabetic 32 gauge x #100 ea 09/18/21 Rx 32 (BD Mya 2nd Gen Pen Needle) clopidogrel 75 mg tablet 75 mg PO DAILY #30 tabs 09/30/21 Rx gabapentin 100 mg capsule 200 mg PO BEDTIME #100 caps 09/30/21 09/30/21 Rx hydralazine 25 mg tablet 25 mg PO TID #90 tabs 09/30/21 09/30/21 Rx carvedilol 25 mg tablet See Rx Instructions .Route 10/15/21 Rx .COMPLEX #90 tabs Allergies Allergy/AdvReac Type Severity Reaction Status Date / Time clonidine Allergy Verified 11/14/21 21:20 hydrochlorothiazide Allergy Verified 11/14/21 21:20 Sulfa (Sulfonamide Allergy RASH Verified 11/14/21 21:20 Antibiotics) amlodipine [AMLODIPINE] AdvReac Intermediate DIZZY, Verified 11/14/21 21:20 MEMORY LOSS lisinopril [LISINOPRIL] AdvReac Intermediate FATIGUE Verified 11/14/21 21:20 SODIUM TETRADECYL SULFATE Allergy Uncoded 12/17/20 14:46 clorine AdvReac Mild Uncoded 12/17/20 14:46 Review of Systems Review of Systems ROS: Yes All systems reviewed with the patient and are negative except as otherwise documented Exam Vital Signs (past 8 hours): - 11/14/21 21:20 11/14/21 21:30 11/14/21 21:37 Temperature 98.9 F Pulse Rate 71 78 68 Respiratory Rate 24 26 H 42 H Blood Pressure Pulse Oximetry 95 94 94 Oxygen Delivery Method Room Air 11/14/21 21:37 11/14/21 22:00 11/14/21 22:00 Temperature Pulse Rate 65 Respiratory Rate 25 H Blood Pressure 247/111 H 207/137 H Pulse Oximetry 94 Oxygen Delivery Method 11/14/21 22:06 11/14/21 22:06 11/14/21 22:12 Temperature Pulse Rate 66 Respiratory Rate 43 H Blood Pressure 208/88 H 189/86 H Pulse Oximetry 95 Oxygen Delivery Method 11/14/21 22:12 11/14/21 22:15 11/14/21 22:15 Temperature Pulse Rate 66 66 Respiratory Rate Blood Pressure 171/78 H Pulse Oximetry 95 95 Oxygen Delivery Method 11/14/21 22:20 11/14/21 22:20 11/14/21 22:25 Temperature Pulse Rate 67 65 Respiratory Rate Blood Pressure 163/75 H Pulse Oximetry 95 95 Oxygen Delivery Method 11/14/21 22:25 11/14/21 22:30 11/14/21 22:30 Temperature Pulse Rate 65 Respiratory Rate Blood Pressure 156/67 H 163/72 H Pulse Oximetry 95 Oxygen Delivery Method 11/14/21 22:35 11/14/21 22:35 11/14/21 22:40 Temperature Pulse Rate 66 Respiratory Rate Blood Pressure 151/57 H 149/68 H Pulse Oximetry 94 Oxygen Delivery Method 11/14/21 22:40 11/14/21 22:45 11/14/21 22:45 Temperature Pulse Rate 66 64 Respiratory Rate Blood Pressure 153/70 H Pulse Oximetry 94 95 Oxygen Delivery Method 11/14/21 22:50 11/14/21 22:50 11/14/21 22:55 Temperature Pulse Rate 65 64 Respiratory Rate Blood Pressure 164/73 H Pulse Oximetry 94 94 Oxygen Delivery Method 11/14/21 22:55 11/14/21 23:00 11/14/21 23:00 Temperature Pulse Rate 70 Respiratory Rate Blood Pressure 146/68 H 159/74 H Pulse Oximetry 95 Oxygen Delivery Method 11/14/21 23:05 11/14/21 23:05 11/14/21 23:10 Temperature Pulse Rate 69 Respiratory Rate Blood Pressure 152/65 H 150/60 H Pulse Oximetry 94 Oxygen Delivery Method 11/14/21 23:10 11/14/21 23:15 11/14/21 23:15 Temperature Pulse Rate 70 69 Respiratory Rate Blood Pressure 157/72 H Pulse Oximetry 95 96 Oxygen Delivery Method 11/14/21 23:20 11/14/21 23:20 11/14/21 23:25 Temperature Pulse Rate 65 66 Respiratory Rate Blood Pressure 150/68 H Pulse Oximetry 96 96 Oxygen Delivery Method 11/14/21 23:25 11/14/21 23:30 11/14/21 23:31 Temperature Pulse Rate 67 Respiratory Rate Blood Pressure 158/69 H 170/78 H Pulse Oximetry 95 Oxygen Delivery Method 11/14/21 23:31 11/14/21 23:35 11/14/21 23:35 Temperature Pulse Rate 66 67 Respiratory Rate Blood Pressure 151/66 H Pulse Oximetry 96 96 Oxygen Delivery Method 11/14/21 23:40 11/14/21 23:40 11/14/21 23:45 Temperature Pulse Rate 70 66 Respiratory Rate Blood Pressure 158/71 H Pulse Oximetry 95 95 Oxygen Delivery Method 11/14/21 23:45 Temperature Pulse Rate Respiratory Rate Blood Pressure 159/70 H Pulse Oximetry Oxygen Delivery Method Oxygen Delivery Method Room Air Narrative Exam Narrative: Gen: Alert, oriented, obese 81 y.o. female, anxious HEENT: normocephalic, atraumatic, conjunctiva clear, sclera non-icteric, oral mucosa pink and moist Neck: supple, full ROM, no JVD, trachea is midline Resp: Lungs CTA, non-labored breathing CV: RRR, no murmur or rubs Abd: soft, non-tender, normoactive BTs Skin: no lesions or rashes, dry and intact Neuro: Alert and oriented X 4 w/no focal deficits. Speech clear and coherent. Extremities: moves all 4 extremities, is ambulatory, negative Harjit?s sign Psyche: Passive, normal mood and affect. Objective Labs Result Diagrams: 11/15/21 03:55 11/15/21 03:55 Labs: Laboratory Results - last 24 hr 11/14/21 11/14/21 11/14/21 21:48 21:48 21:48 WBC 7.9 RBC 4.30 Hgb 12.8 Hct 38.5 MCV 89.4 MCH 29.8 MCHC 33.4 RDW 14.4 Plt Count 212 Neut % (Auto) 63.0 Lymph % (Auto) 27.4 [place] % (Auto) 6.4 Eos % (Auto) 2.2 Baso % (Auto) 1.0 Neut # (Auto) 5000 Lymph # (Auto) 2200 [place] # (Auto) 500 Eos # (Auto) 200 Baso # (Auto) 100 PT 13.2 H INR 1.2 APTT 34 Sodium 142 Potassium 3.9 Chloride 105 Carbon Dioxide 30 BUN 12 Creatinine 0.67 Estimated GFR > 60 BUN/Creatinine Ratio 17.9 Glucose 149 H Calcium 8.7 Total Bilirubin 0.8 AST 47 H ALT 36 H Alkaline Phosphatase 70 Total Creatine Kinase 40 CK-MB (CK-2) TNP CK-MB (CK-2) Rel Index TNP Troponin I 0.020 Total Protein 7.9 Albumin 4.0 Globulin 3.9 Albumin/Globulin Ratio 1.0 SARS-CoV-2 (PCR) 11/14/21 21:48 WBC RBC Hgb Hct MCV MCH MCHC RDW Plt Count Neut % (Auto) Lymph % (Auto) [place] % (Auto) Eos % (Auto) Baso % (Auto) Neut # (Auto) Lymph # (Auto) [place] # (Auto) Eos # (Auto) Baso # (Auto) PT INR APTT Sodium Potassium Chloride Carbon Dioxide BUN Creatinine Estimated GFR BUN/Creatinine Ratio Glucose Calcium Total Bilirubin AST ALT Alkaline Phosphatase Total Creatine Kinase CK-MB (CK-2) CK-MB (CK-2) Rel Index Troponin I Total Protein Albumin Globulin Albumin/Globulin Ratio SARS-CoV-2 (PCR) Negative Assessment & Plan Assessment & Plan narrative: Jacquelyn Sherman is admitted to the intensive care unit for further management of a malignant hypertensive urgency with a nifedipine drip. 1. Hypertensive urgency, acute, present on admission * Continue nifedipine drip, goal to no more than 25% of her initial presenting blood pressure equaling a systolic of 160 or higher. 2. Diabetes type 2 with hemoglobin A1c of 6.9 improved over prior * A1c in late September was 8.0, patient appears to be improving the control of her diabetes * She will have Lantus 20 units during the day and medium dose correctional insulin with meals and at bedtime 3. Critical High-grade left carotid stenosis, detected in July of 2021 * I have reviewed vascular surgery's notes dated October 03, 2021 and it appears that they are recommending that she undergo a left carotid endarterectomy. Patient states she has a follow-up appointment next week and she has not made up her mind to undergo the surgery. Vascular note indicates a 3% risk of stroke if she undergoes the procedure and a 20-30% risk of stroke if she for grows having the left carotid endarterectomy. 4. Dyslipidemia, chronic * Continue atorvastatin 80 mg p.o. daily 5. Coronary artery disease, severe and chronic * Continue home dose of clopidogrel 75 mg p.o. daily and carvedilol 25 mg daily. VTE Prophylaxis: Wells risk score 0 Enoxaparin 40 mg subQ once daily Bilateral SCDs Patient is admitted to the inpatient intensive care unit due to the close monitoring of the therapy, severity of disease, risks of further disease progression and this stay is expected to exceed 2 midnights. FEN: IV fluids: saline lock, diet: carb controlled diet, labs: CBC, C/BMP, liver enzymes, Mag Consultants Intercept ICU, care and involvement in the patient?s care is appreciated. Dispo: Unknown at this time Code status: Full code as discussed with the patient who identifies her partner, Keo Madden her surrogate and POA. [X] I have utilized all available immediate resources to obtain, update, or review of the patient's current medications COVID-19 COVID-19 status: Negative Result date/Date tested (Pos, Neg/Pending): 11/15/21 Scores Wells' Criteria for PE Clinical signs and symptoms of DVT: No PE is #1 Dx or equally likely: No Heart rate > 100: No Immobilization at least 3 days or surg in previous 4 weeks: No History of PE or DVT: No Hemoptysis: No Malignancy w/Treatment within 6 months or palliative: No Wells' PE Score total: 0 Quality VTE Deep Vein Thrombosis/Pulmonary Embolism Present on Admission: No MIPS - Admit I confirm the patient?s Advance Care Plan is present, Code status is documented, Surrogate decision maker is in patient?s record [If Yes, STOP here]: Yes MIPS - DC The patient has current or prior documentation of left ventricular ejection fraction (LVEF) less than 40%, or moderate or severely depressed left ventricu lar systolic function.: No
--- NOTE | 2021-11-15 01:15 | PM.CN.EICU ---
History of Present Illness Consult details If camera was activated, add TeleICU A-V Statement: 81 year old woman, tranferred to for furher management of hypertensive ugency. SBP in ED was in 240s, but obvious symptoms or signs of end organ damage, currently on cardene gtt Chief complaint: high blood pressure REPLACED BY [facility] Medical History Bilateral primary osteoarthritis of hip Cerumen impaction Hypertension Scoliosis Urinary tract disease (~2020) Vision changes Surgical History Anesthesia H/O total hip arthroplasty Status post hernia repair Family History Brother Suicide Mother Old age Father MVA (motor vehicle accident) Social History Smoking Status: Former smoker Current Medications Current Medications Medications: Home Medications sitagliptin 50 mg tablet 50 mg PO BID #60 tabs 07/19/21 [Rx Confirmed 08/09/21] acetaminophen 325 mg capsule 325 mg PO ONCE PRN 08/09/21 [History Confirmed 08/09/21] aspirin 81 mg tablet,delayed release (Adult Aspirin Regimen) 81 mg PO DAILY 08/09/21 [History Confirmed 08/09/21] melatonin 3 mg capsule 3 mg PO BEDTIME PRN 08/09/21 [History Confirmed 08/09/21] sennosides 8.6 mg tablet (senna) 8.6 mg PO DAILY 08/09/21 [History Confirmed 08/09/21] chlorthalidone 25 mg tablet 25 mg PO DAILY #60 tabs 08/28/21 [Rx] atorvastatin 80 mg tablet 80 mg PO DAILY #30 tabs 08/29/21 [Rx] insulin aspart U-100 100 unit/mL (3 mL) subcutaneous pen (Novolog Flexpen U-100 Insulin aspart) 3 unit (0.03 mL) SUBCUT TID #3 mL 08/29/21 [Rx] insulin glargine 100 unit/mL (3 mL) subcutaneous pen (Lantus Solostar U-100 Insulin) 20 unit (0.2 mL) SUBCUT QAM #3 mL 08/29/21 [Rx] pen needle, diabetic 32 gauge x 5/32 (BD Mya 2nd Gen Pen Needle) #100 ea 09/18/21 [Rx] clopidogrel 75 mg tablet 75 mg PO DAILY #30 tabs 09/30/21 [Rx] gabapentin 100 mg capsule 200 mg PO BEDTIME #100 caps 09/30/21 [Rx Confirmed 09/30/21] hydralazine 25 mg tablet 25 mg PO TID #90 tabs 09/30/21 [Rx Confirmed 09/30/21] carvedilol 25 mg tablet See Rx Instructions .Route .COMPLEX #90 tabs 10/15/21 [Rx] Exam Vital Signs (past 8 hours): - 11/14/21 21:20 11/14/21 21:30 11/14/21 21:37 Temperature 98.9 F Pulse Rate 71 78 68 Respiratory Rate 24 26 H 42 H Blood Pressure Pulse Oximetry 95 94 94 Oxygen Delivery Method Room Air Oxygen Flow Rate 11/14/21 21:37 11/14/21 22:00 11/14/21 22:00 Temperature Pulse Rate 65 Respiratory Rate 25 H Blood Pressure 247/111 H 207/137 H Pulse Oximetry 94 Oxygen Delivery Method Oxygen Flow Rate 11/14/21 22:06 11/14/21 22:06 11/14/21 22:12 Temperature Pulse Rate 66 Respiratory Rate 43 H Blood Pressure 208/88 H 189/86 H Pulse Oximetry 95 Oxygen Delivery Method Oxygen Flow Rate 11/14/21 22:12 11/14/21 22:15 11/14/21 22:15 Temperature Pulse Rate 66 66 Respiratory Rate Blood Pressure 171/78 H Pulse Oximetry 95 95 Oxygen Delivery Method Oxygen Flow Rate 11/14/21 22:20 11/14/21 22:20 11/14/21 22:25 Temperature Pulse Rate 67 65 Respiratory Rate Blood Pressure 163/75 H Pulse Oximetry 95 95 Oxygen Delivery Method Oxygen Flow Rate 11/14/21 22:25 11/14/21 22:30 11/14/21 22:30 Temperature Pulse Rate 65 Respiratory Rate Blood Pressure 156/67 H 163/72 H Pulse Oximetry 95 Oxygen Delivery Method Oxygen Flow Rate 11/14/21 22:35 11/14/21 22:35 11/14/21 22:40 Temperature Pulse Rate 66 Respiratory Rate Blood Pressure 151/57 H 149/68 H Pulse Oximetry 94 Oxygen Delivery Method Oxygen Flow Rate 11/14/21 22:40 11/14/21 22:45 11/14/21 22:45 Temperature Pulse Rate 66 64 Respiratory Rate Blood Pressure 153/70 H Pulse Oximetry 94 95 Oxygen Delivery Method Oxygen Flow Rate 11/14/21 22:50 11/14/21 22:50 11/14/21 22:55 Temperature Pulse Rate 65 64 Respiratory Rate Blood Pressure 164/73 H Pulse Oximetry 94 94 Oxygen Delivery Method Oxygen Flow Rate 11/14/21 22:55 11/14/21 23:00 11/14/21 23:00 Temperature Pulse Rate 70 Respiratory Rate Blood Pressure 146/68 H 159/74 H Pulse Oximetry 95 Oxygen Delivery Method Oxygen Flow Rate 11/14/21 23:05 11/14/21 23:05 11/14/21 23:10 Temperature Pulse Rate 69 Respiratory Rate Blood Pressure 152/65 H 150/60 H Pulse Oximetry 94 Oxygen Delivery Method Oxygen Flow Rate 11/14/21 23:10 11/14/21 23:15 11/14/21 23:15 Temperature Pulse Rate 70 69 Respiratory Rate Blood Pressure 157/72 H Pulse Oximetry 95 96 Oxygen Delivery Method Oxygen Flow Rate 11/14/21 23:20 11/14/21 23:20 11/14/21 23:25 Temperature Pulse Rate 65 66 Respiratory Rate Blood Pressure 150/68 H Pulse Oximetry 96 96 Oxygen Delivery Method Oxygen Flow Rate 11/14/21 23:25 11/14/21 23:30 11/14/21 23:31 Temperature Pulse Rate 67 Respiratory Rate Blood Pressure 158/69 H 170/78 H Pulse Oximetry 95 Oxygen Delivery Method Oxygen Flow Rate 11/14/21 23:31 11/14/21 23:35 11/14/21 23:35 Temperature Pulse Rate 66 67 Respiratory Rate Blood Pressure 151/66 H Pulse Oximetry 96 96 Oxygen Delivery Method Oxygen Flow Rate 11/14/21 23:40 11/14/21 23:40 11/14/21 23:45 Temperature Pulse Rate 70 66 Respiratory Rate Blood Pressure 158/71 H Pulse Oximetry 95 95 Oxygen Delivery Method Oxygen Flow Rate 11/14/21 23:45 11/15/21 00:30 11/14/21 23:50 Temperature 98.3 F Pulse Rate 74 66 Respiratory Rate 18 Blood Pressure 159/70 H 164/70 H Pulse Oximetry 95 94 Oxygen Delivery Method Oxygen Flow Rate 0 11/14/21 23:50 11/14/21 23:55 11/14/21 23:55 Temperature Pulse Rate 63 Respiratory Rate Blood Pressure 159/70 H 142/58 H Pulse Oximetry 94 Oxygen Delivery Method Oxygen Flow Rate 11/15/21 00:56 11/15/21 01:00 Temperature Pulse Rate 73 71 Respiratory Rate Blood Pressure Pulse Oximetry 95 96 Oxygen Delivery Method Oxygen Flow Rate Oxygen Delivery Method Room Air Oxygen Flow Rate 0 Narrative Exam Narrative: surogate for exam is primary team Objective Labs Result Diagrams: 11/14/21 21:48 11/14/21 21:48 Labs: Laboratory Results - last 24 hr 11/14/21 11/14/21 11/14/21 21:48 21:48 21:48 WBC 7.9 RBC 4.30 Hgb 12.8 Hct 38.5 MCV 89.4 MCH 29.8 MCHC 33.4 RDW 14.4 Plt Count 212 Neut % (Auto) 63.0 Lymph % (Auto) 27.4 [place] % (Auto) 6.4 Eos % (Auto) 2.2 Baso % (Auto) 1.0 Neut # (Auto) 5000 Lymph # (Auto) 2200 [place] # (Auto) 500 Eos # (Auto) 200 Baso # (Auto) 100 PT 13.2 H INR 1.2 APTT 34 Sodium 142 Potassium 3.9 Chloride 105 Carbon Dioxide 30 BUN 12 Creatinine 0.67 Estimated GFR > 60 BUN/Creatinine Ratio 17.9 Glucose 149 H Calcium 8.7 Total Bilirubin 0.8 AST 47 H ALT 36 H Alkaline Phosphatase 70 Total Creatine Kinase 40 CK-MB (CK-2) TNP CK-MB (CK-2) Rel Index TNP Troponin I 0.020 Total Protein 7.9 Albumin 4.0 Globulin 3.9 Albumin/Globulin Ratio 1.0 SARS-CoV-2 (PCR) 11/14/21 21:48 WBC RBC Hgb Hct MCV MCH MCHC RDW Plt Count Neut % (Auto) Lymph % (Auto) [place] % (Auto) Eos % (Auto) Baso % (Auto) Neut # (Auto) Lymph # (Auto) [place] # (Auto) Eos # (Auto) Baso # (Auto) PT INR APTT Sodium Potassium Chloride Carbon Dioxide BUN Creatinine Estimated GFR BUN/Creatinine Ratio Glucose Calcium Total Bilirubin AST ALT Alkaline Phosphatase Total Creatine Kinase CK-MB (CK-2) CK-MB (CK-2) Rel Index Troponin I Total Protein Albumin Globulin Albumin/Globulin Ratio SARS-CoV-2 (PCR) Negative Assessment & Plan Assessment & Plan narrative: A/ HTN OA hypertensive urgency Plan continue cadene gtt target bp will be wuite igh today, ~160-180 sbp TTE trend bmp trend cbc monitor UO dvt ppx oral antihypertenvies Time Spent With Patient Critical Care time: I spent a total of [] minutes of critical care time on this patient's care today; this time is exclusive of procedural time.
--- NOTE | 2021-11-15 01:23 | PC.NURSE ---
Addendum entered by Justine Roach R.N. 11/15/21 04:34: 0200- Nicardipine off BP below target. Intensive care MD aware. Will monitor. Original Note: 0005- Admit to room 230 for hypertensive crisis. Nicardipine gtt at 5mg/hr. Target BP Systolic 160. Patient is alert and oriented. No c/o pain or headache. Oriented to room and bed controls, call light. Patient bed alarm engaged. Tele Intensivists consulted. Patient stable.
[2021-11-15 01:27] LABS: Hemoglobin A1C% w Est Avg Glu 6.9 % (4.0-6.0)
[2021-11-15] MEDS: SODIUM CHLORIDE 0.9% 1,000 ML 100 ML IV (01:33)
[2021-11-15] MEDS: MELATONIN 3 MG TABLET PO (01:34)
[2021-11-15] MEDS: NICARDIPINE 25 MG in SODIUM CHLORIDE 0.9% 240 ML IV (02:04)
[2021-11-15 04:27] LABS: Add Manual Diff / Slide Review NO; Basophils Absolute Auto 0 /uL (0-100); Basophils Percent Auto 0.6 % (0-2); Eosinophils Absolute Auto 200 /uL (0-450); Eosinophils Percent Auto 2.3 % (2-4); Hematocrit 36.2 % (36-46); Lymphocytes Absolute Auto 3000 /uL (1100-4500); Lymphocytes Percent Auto 37.6 % (25-40); Mean Corpuscular HGB Conc 33.1 % (30-36); Mean Corpuscular Hemoglobin 29.4 PG (26-34); Mean Corpuscular Volume 88.6 fL (80-100); Monocytes Absolute Auto 700 /uL (0-900); Monocytes Percent Auto 8.5 % (3-14); Neutrophils Absolute Auto 4100 /uL (1500-7000); Platelet Count 193 X10^3/uL (150-400); Red Blood Cell Count 4.09 X10^6/uL (4.0-5.2); Red Cell Distribution Width 14.2 % (11.6-14.8)
[2021-11-15 04:52] LABS: Alanine Aminotransferase 31 IU/L (<35); Albumin 3.4 g/dL (3.5-5.0); Alkaline Phosphatase 63 U/L (38-126); Aspartate Aminotransferase 35 IU/L (14-36); BUN Creatinine Ratio 16.9 (6-22); Bilirubin Total 0.8 mg/dL (0.2-1.3); Bilirubin Unconjugated 0.7 mg/dL (0.0-1.1); Blood Urea Nitrogen 11 mg/dL (7-17); Calcium 8.6 mg/dL (8.4-10.2); Carbon Dioxide 29 mmol/L (22-32); Chloride 106 mmol/L (98-107); Estimated Glomerular Filt Rate > 60 mL/min (>60); Globulin 3.4 g/dL (1.7-4.1); Glucose 128 mg/dL (80-110); HEMOLYSIS < 15 (0-50); Magnesium 2.1 mg/dL (1.6-2.3); Potassium 3.4 mmol/L (3.4-5.1); Sodium 140 mmol/L (137-145); Total Protein 6.8 g/dL (6.3-8.2)
[2021-11-15] MEDS: ENALAPRIL 5 MG TABLET 10 MG PO (09:21)
[2021-11-15] MEDS: carvediloL 12.5 MG TABLET 25 MG PO (09:21)
[2021-11-15] MEDS: ASPIRIN EC 81 MG TABLET PO (09:21)
[2021-11-15] MEDS: SENNOSIDES 8.6 MG TABLET PO (09:21)
[2021-11-15] MEDS: ENOXAPARIN 40 MG/0.4 ML SYRINGE SUBCUT (09:22)
[2021-11-15] MEDS: CHLORTHALIDONE 25 MG TABLET PO (09:22)
[2021-11-15] MEDS: HYDRALAZINE 25 MG TABLET PO (09:22)
[2021-11-15] MEDS: INSULIN GLARGINE 100 UNIT/ML 3ML PEN 20 UNIT SUBCUT (09:22)
[2021-11-15] MEDS: ATORVASTATIN 20 MG TABLET 80 MG PO (09:22)
[2021-11-15] MEDS: CLOPIDOGREL 75 MG TABLET PO (09:22)
--- NOTE | 2021-11-15 11:35 | CM.DANOTE ---
DCP Note: Payor: Medicare PCP: MD Jasiel Pt is an 81 y.o. F who was admitted to the floor in ICU for Hypertensive urgency. Pt had a recent CVA and was treated with TPA. Pt was put on nifedipine drip. Pt has a history of diabetes, CAD, and Dyslipidemia. Pt lives in [place] with her partner Keo. Per MD this morning, pt is medically stable for discharge. DCP met with patient this morning bedside. Pt laying in bed resting. Pt states she is fairly independent at baseline. Pt states that she lives in an apartment and uses a cane. Pt lives on the second story but states the is OK to walk up the stairs post discharge. Pt states that Keo will pick her up today to take her home. Pt declines any needs at this time. P: Pt is to discharge home today via partners POV. Andie Pastor RN/VAN Discharge Planning/Care Management CM Discharge Assessment Start: 11/15/21 11:35 Freq: Status: Active Protocol: Document 11/15/21 11:35 LCAUDIA (Rec: 11/15/21 11:35 CLAUDIA [id number]) Discharge Planning Assessment Assigned Restaurant Service Manager Andie Pastor RN/VAN Advance Directives? No History Provided By Patient Prior Living Arrangements Apartment/Condo Household Members significant other Type of transporation used prior to Relies on Others admit Independent with ADL's Yes Is patient alert and oriented? Yes Caregiver for Another No DME Already Rented / Owned Cane Barriers to Discharge No Discharge Plan Home Referrals Initiated None needed Review Status In Process Please Provide Date Initial DC 11/15/21 Assessment Was Performed Next Review Type Continued Stay Review
--- NOTE | 2021-11-15 14:27 | PC.NURSE ---
Pt was escorted to POV by [facility] with all belongings at 1425.
--- NOTE | 2021-11-15 16:38 | PM.DS.1 ---
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 Per report, her partner had taken her blood pressure in it was 247/111. She had no end-organ damage, but did complain of some dyspnea with exertion. She denied any palpitations, nausea or vomiting. She was life flighted from [facility] to our emergency department. She underwent workup inclusive of labs which remarkable for elevated glucose at 149, hemoglobin A1c of 6.9%, and mildly elevated LFTs with an AST of 47 and ALT of 36. Cardiac enzymes were negative. No imaging was performed. She was placed on a nicardipine drip and admitted to the intensive care unit. A tele ICU consult was performed with recommendation for a target blood pressure of 160-180 systolic and recommendations for follow-up echocardiogram, but this was not ordered by the poly packer and heat sealer. She is also placed back on her usual oral antihypertensives, as well as given a dose of enalapril. Discharge Providers Provider Date of admission: 11/14/21 23:52 Discharge Date: 11/15/21 Primary care physician: Lowell Weathers DO Consults: 11/15/21 00:15 Consult to Tele-poly packer and heat sealer Routine Comment: Consulting Provider: [employer] Reason for consultation: [place] [employer] services Has provider been notified: Yes Discharge provider: Shelby Enciso MD Summary Hospital Course Discharge Diagnosis: hypertensive urgency, resolved recent cerebrovascular accident, right occipital With persistent left homonymous hemianopsia left internal carotid artery stenosis hypertension insulin-dependent diabetes mellitus type 2, well controlled Hospital Course: Overnight,patient was weaned off of the nicardipine drip. labs remained negative. She remained asymptomatic with no neuro symptoms. Blood pressures improved down to goal of 170. She is slated for left carotid endarterectomy and is following up with vascular surgery next week. Tele poly packer and heat sealer had no further recommendations. Exam Vital Signs (past 8 hours): - 11/15/21 09:21 11/15/21 09:21 11/15/21 09:52 Pulse Rate 67 66 66 Blood Pressure 174/75 H 176/75 H 173/76 H Oxygen Delivery Method Room Air Oxygen Flow Rate 0 Narrative Exam Narrative: GEN: Very pleasant elderly female,Alert and oriented x 3, NAD HEENT:NC, Face symmetric CHEST: Respiratory excursions symmetric, CTAB CV: RRR, no M/R/G ABD: Soft, NT/ND, BT present in all 4 quadrants, no organomegaly or masses EXTR: warm, well perfused, no C/C/E SKIN: warm and dry, no rash NEURO: Alert and oriented x 3, nonfocal Objective Labs Result Diagrams: 11/15/21 03:55 11/15/21 03:55 Labs: Laboratory Results - last 24 hr 11/14/21 11/14/21 11/14/21 21:48 21:48 21:48 WBC 7.9 RBC 4.30 Hgb 12.8 Hct 38.5 MCV 89.4 MCH 29.8 MCHC 33.4 RDW 14.4 Plt Count 212 Neut % (Auto) 63.0 Lymph % (Auto) 27.4 [place] % (Auto) 6.4 Eos % (Auto) 2.2 Baso % (Auto) 1.0 Neut # (Auto) 5000 Lymph # (Auto) 2200 [place] # (Auto) 500 Eos # (Auto) 200 Baso # (Auto) 100 PT 13.2 H INR 1.2 APTT 34 Sodium 142 Potassium 3.9 Chloride 105 Carbon Dioxide 30 BUN 12 Creatinine 0.67 Estimated GFR > 60 BUN/Creatinine Ratio 17.9 Glucose 149 H Hemoglobin A1c Calcium 8.7 Magnesium Total Bilirubin 0.8 Conjugated Bilirubin Unconjugated Bilirubin AST 47 H ALT 36 H Alkaline Phosphatase 70 Total Creatine Kinase 40 CK-MB (CK-2) TNP CK-MB (CK-2) Rel Index TNP Troponin I 0.020 Total Protein 7.9 Albumin 4.0 Globulin 3.9 Albumin/Globulin Ratio 1.0 Nasal Screen MRSA (PCR) SARS-CoV-2 (PCR) 11/14/21 11/14/21 11/15/21 21:48 21:48 00:30 WBC RBC Hgb Hct MCV MCH MCHC RDW Plt Count Neut % (Auto) Lymph % (Auto) [place] % (Auto) Eos % (Auto) Baso % (Auto) Neut # (Auto) Lymph # (Auto) [place] # (Auto) Eos # (Auto) Baso # (Auto) PT INR APTT Sodium Potassium Chloride Carbon Dioxide BUN Creatinine Estimated GFR BUN/Creatinine Ratio Glucose Hemoglobin A1c 6.9 H Calcium Magnesium Total Bilirubin Conjugated Bilirubin Unconjugated Bilirubin AST ALT Alkaline Phosphatase Total Creatine Kinase CK-MB (CK-2) CK-MB (CK-2) Rel Index Troponin I Total Protein Albumin Globulin Albumin/Globulin Ratio Nasal Screen MRSA (PCR) Negative for mrsa SARS-CoV-2 (PCR) Negative 11/15/21 11/15/21 03:55 03:55 WBC 8.0 RBC 4.09 Hgb 12.0 Hct 36.2 MCV 88.6 MCH 29.4 MCHC 33.1 RDW 14.2 Plt Count 193 Neut % (Auto) 51.0 Lymph % (Auto) 37.6 [place] % (Auto) 8.5 Eos % (Auto) 2.3 Baso % (Auto) 0.6 Neut # (Auto) 4100 Lymph # (Auto) 3000 [place] # (Auto) 700 Eos # (Auto) 200 Baso # (Auto) 0 PT INR APTT Sodium 140 Potassium 3.4 Chloride 106 Carbon Dioxide 29 BUN 11 Creatinine 0.65 Estimated GFR > 60 BUN/Creatinine Ratio 16.9 Glucose 128 H Hemoglobin A1c Calcium 8.6 Magnesium 2.1 Total Bilirubin 0.8 Conjugated Bilirubin 0.0 Unconjugated Bilirubin 0.7 AST 35 ALT 31 Alkaline Phosphatase 63 Total Creatine Kinase CK-MB (CK-2) CK-MB (CK-2) Rel Index Troponin I Total Protein 6.8 Albumin 3.4 L Globulin 3.4 Albumin/Globulin Ratio 1.0 Nasal Screen MRSA (PCR) SARS-CoV-2 (PCR) [facility] Medical History Bilateral primary osteoarthritis of hip Cerumen impaction Hypertension Scoliosis Urinary tract disease (~2020) Vision changes Surgical History Anesthesia H/O total hip arthroplasty Status post hernia repair Family History Brother Suicide Mother Old age Father MVA (motor vehicle accident) Social History household members: significant other Smoking Status: Former smoker Discharge Plan Discharge Plan Patient Disposition: Home Provider Discharge Comment: Please follow-up with your Primary Care doctor for recheck of your blood pressure; please monitor your blood pressure at home twice daily. Call your PCP for systolic BP above 170 and/or diastolic BP above 100. Follow-up with vascular surgery next week as scheduled Discharge orders & Medications Prescriptions: Continued chlorthalidone 25 mg tablet 25 mg PO DAILY Qty: 60 0RF atorvastatin 80 mg tablet 80 mg PO DAILY Qty: 30 0RF Lantus Solostar U-100 Insulin 100 unit/mL (3 mL) insulin pen 20 unit SUBCUT QAM Qty: 3 0RF insulin aspart U-100 [Novolog Flexpen U-100 Insulin] 100 unit/mL (3 mL) insulin pen 3 unit SUBCUT TID Qty: 3 1RF (DME) pen needle, diabetic [BD Mya 2nd Gen Pen Needle] 32 gauge x 5/32 needle See Rx Instructions .Route Qty: 100 3RF Rx Instructions: As directed with Lantus once daily clopidogrel 75 mg tablet 75 mg PO DAILY Qty: 30 0RF carvedilol 25 mg tablet See Rx Instructions .ROUTE .COMPLEX Qty: 90 1RF Dose Instruction: TAKE ONE TABLET BY MOUTH TWICE A DAY WITH FOOD Rx Instructions: TAKE ONE TABLET BY MOUTH TWICE A DAY WITH FOOD sitagliptin 50 mg tablet 50 mg PO BID Qty: 60 5RF Rx Instructions: Start 1 per day at dinner for 1 week then advanced to b.i.d. aspirin [Adult Aspirin Regimen] 81 mg tablet,delayed release (DR/EC) 81 mg PO DAILY melatonin 3 mg capsule 3 mg PO BEDTIME PRN sennosides [senna] 8.6 mg tablet 8.6 mg PO DAILY gabapentin 100 mg capsule 200 mg PO BEDTIME Qty: 100 1RF Rx Instructions: Initiate 1 pill q.h.s. for the 1st 10 days then advanced to 2 p.o. q.h.s. hydralazine 25 mg tablet 25 mg PO TID Qty: 90 3RF Discontinued acetaminophen 325 mg capsule 325 mg PO ONCE PRN Medication counseling provided by Pharmacist: No Follow up/Referrals: Lowell Weathers DO [Primary Care Provider] - Diet/Activity/Treatments Diet: Carb-consistent/Diabetic Activity: As tolerated Oxygen: N/A Discharge Data Primary Care Provider: Lowell Weathers Quality VTE Deep Vein Thrombosis/Pulmonary Embolism Present on Admission: No
== END 2021-11-15 14:25 | disposition home or self-care (01) | DRG 305 ==
LOC: ED 21:51 → AC 23:54 → ICU 11-15 00:14
PROVIDERS: Admitting Provider Nurse Practitioner Family; Emergency Provider Emergency Medicine; Family Provider Family Medicine; PCP Family Medicine; Referring Provider Emergency Medicine; Visit Provider Nurse Practitioner Family
DX: I16.0 Hypertensive urgency (principal); I65.22 Occlusion and stenosis of left carotid artery; E11.9 Type 2 diabetes mellitus without complications; E78.5 Hyperlipidemia, unspecified; I25.10 Atherosclerotic heart disease of native coronary artery without angina pectoris; Z79.4 Long term (current) use of insulin; Z79.84 Long term (current) use of oral hypoglycemic drugs; Z87.891 Personal history of nicotine dependence; Z20.822 Contact with and (suspected) exposure to COVID-19; Z86.73 Personal history of transient ischemic attack (TIA), and cerebral infarction without residual deficits
CPT/HCPCS: 36415; 80048; 80053; 80076; 82550; 82962; 83036; 83735; 84484; 85025; 85610; 85730; 87635; 87797; 93005; 96365; 96366; 99284; C9803; J1650; J1815

== ENCOUNTER → 2022-01-28 10:49 | Outpatient (CLI) | payer MEDICARE, MEDICAID, SELFPAY ==
[2021-11-15 01:05] VITALS: BMI 32.8
[2022-01-28 20:01] LABS: Alanine Aminotransferase 29 IU/L (<35); Albumin 3.5 g/dL (3.5-5.0); Albumin Globulin Ratio 1.1 (1.0-2.8); Alkaline Phosphatase 76 U/L (38-126); Aspartate Aminotransferase 33 IU/L (14-36); BUN Creatinine Ratio 18.8 (6-22); Bilirubin Total 0.9 mg/dL (0.2-1.3); Blood Urea Nitrogen 13 mg/dL (7-17); Calcium 8.9 mg/dL (8.4-10.2); Carbon Dioxide 29 mmol/L (22-32); Chloride 104 mmol/L (98-107); Cholesterol 104 mg/dL (140-199); Estimated Glomerular Filt Rate > 60 mL/min (>60); Globulin 3.3 g/dL (1.7-4.1); Glucose 174 mg/dL (80-110); HDL Cholesterol 30 mg/dL (40-60); HEMOLYSIS < 15 (0-50); LDL Cholesterol Calculated 53 mg/dL (<100); Potassium 3.8 mmol/L (3.4-5.1); Sodium 141 mmol/L (137-145); Total Protein 6.8 g/dL (6.3-8.2); Triglycerides 107 mg/dL (35-150)
[2022-01-28 20:03] LABS: Hemoglobin A1C% w Est Avg Glu 7.1 % (4.0-6.0)
== END ==
PROVIDERS: Family Provider Family Medicine; PCP Family Medicine; Visit Provider Family Medicine
DX: E11.65 Type 2 diabetes mellitus with hyperglycemia (principal); Z79.4 Long term (current) use of insulin
CPT/HCPCS: 80053; 80061; 83036

== ENCOUNTER → 2022-03-31 10:41 | Outpatient (CLI) | payer MEDICARE, MEDICAID, SELFPAY ==
[2021-11-15 01:05] VITALS: BMI 32.8
[2022-03-31 20:06] LABS: Hemoglobin A1C% w Est Avg Glu 6.9 % (4.0-6.0)
[2022-03-31 20:07] LABS: Alanine Aminotransferase 33 IU/L (<35); Albumin 3.8 g/dL (3.5-5.0); Alkaline Phosphatase 77 U/L (38-126); Aspartate Aminotransferase 38 IU/L (14-36); BUN Creatinine Ratio 19.3 (6-22); Bilirubin Total 0.8 mg/dL (0.2-1.3); Blood Urea Nitrogen 16 mg/dL (7-17); Calcium 9.3 mg/dL (8.4-10.2); Carbon Dioxide 29 mmol/L (22-32); Chloride 100 mmol/L (98-107); Estimated Glomerular Filt Rate > 60 mL/min (>60); Globulin 3.7 g/dL (1.7-4.1); Glucose 168 mg/dL (80-110); HEMOLYSIS 16 (0-50); Potassium 4.1 mmol/L (3.4-5.1); Sodium 141 mmol/L (137-145); Total Protein 7.5 g/dL (6.3-8.2)
== END ==
PROVIDERS: Family Provider Family Medicine; PCP Family Medicine; Visit Provider Family Medicine
DX: E11.65 Type 2 diabetes mellitus with hyperglycemia (principal); E11.49 Type 2 diabetes mellitus with other diabetic neurological complication; I10 Essential (primary) hypertension; Z79.4 Long term (current) use of insulin
CPT/HCPCS: 80053; 83036

== ENCOUNTER 2022-05-02 10:45 | Emergency (ER) | payer MEDICARE, MEDICAID, SELFPAY ==
[2021-11-15 01:05] VITALS: BMI 32.8
[2022-05-02] VITALS (11 sets, daily range): BP systolic 149–199; BP diastolic 63–93; PULSE 67–80; RESP 18; TEMP 36.5; O2SAT 93–96; BMI 33.4
--- NOTE | 2022-05-02 10:57 | ED_ITS ---
HPI - General Adult General Chief complaint: Abdominal Pain Stated complaint: abd pain t-3 Time Seen by Provider: 05/02/22 10:54 Source: patient Mode of arrival: Wheelchair History of Present Illness HPI narrative: 81-year-old female who stated that she has had abdominal pain for the past couple days. She currently does not have pain. She took a pain pill yesterday and that seems to have improved her symptoms. She is not having any vomiting. No fevers. No prior abdominal surgeries. She is still passing flatus. Has not had a bowel movement past couple days. No urinary symptoms. She a dinner last evening. Did not eat anything this morning. Related Data Home Medications Medication Instructions Recorded Confirmed aspirin 81 mg tablet,delayed 81 mg PO DAILY 08/09/21 04/08/22 release (Adult Aspirin Regimen) melatonin 3 mg capsule 3 mg PO BEDTIME PRN 08/09/21 04/08/22 sennosides 8.6 mg tablet (senna) 8.6 mg PO DAILY 08/09/21 04/08/22 Previous Rx's Medication Instructions Recorded sitagliptin phosphate 50 mg tablet 50 mg PO BID #60 tabs 07/19/21 insulin aspart U-100 100 unit/mL 3 unit (0.03 mL) SUBCUT TID #3 mL 08/29/21 (3 mL) subcutaneous pen (Novolog Flexpen U-100 Insulin aspart) gabapentin 100 mg capsule 200 mg PO BEDTIME #100 caps 09/30/21 atorvastatin 80 mg tablet See Rx Instructions .Route 11/28/21 .COMPLEX #90 tabs clopidogrel 75 mg tablet 75 mg PO DAILY #90 tabs 12/23/21 pen needle, diabetic 32 gauge x #100 ea 01/08/22 (BD Mya 2nd Gen Pen Needle) hydralazine 50 mg tablet 50 mg PO TID #270 tabs 01/28/22 insulin glargine 100 unit/mL (3 See Rx Instructions .Route 01/28/22 mL) subcutaneous pen (Lantus .COMPLEX #9 mL Solostar U-100 Insulin) losartan 50 mg tablet 50 mg PO DAILY #90 tabs 01/28/22 pimecrolimus 1 % topical cream 1 applic topical BID #30 grams 01/28/22 (Elidel) carvedilol 25 mg tablet See Rx Instructions .Route 04/15/22 .COMPLEX #90 tabs Allergies Allergy/AdvReac Type Severity Reaction Status Date / Time clonidine Allergy Verified 05/02/22 10:55 hydrochlorothiazide Allergy Verified 05/02/22 10:55 Sulfa (Sulfonamide Allergy RASH Verified 05/02/22 10:55 Antibiotics) amlodipine [AMLODIPINE] AdvReac Intermediate DIZZY, Verified 05/02/22 10:55 MEMORY LOSS lisinopril [LISINOPRIL] AdvReac Intermediate FATIGUE Verified 05/02/22 10:55 SODIUM TETRADECYL SULFATE Allergy Uncoded 04/08/22 15:19 clorine AdvReac Mild Uncoded 04/08/22 15:19 Review of Systems Constitutional Constitutional: Reports system reviewed and no additional complaints, except as documented Cardiovascular Cardiovascular: Reports system reviewed and no additional complaints, except as documented Respiratory Respiratory: Reports system reviewed and no additional complaints, except as documented Gastrointestinal Gastrointestinal: Reports system reviewed and no additional complaints, except as documented Genitourinary Genitourinary: Reports system reviewed and no additional complaints, except as documented Musculoskeletal Musculoskeletal: Reports system reviewed and no additional complaints, except as documented Integumentary/Breasts Skin/Breast: Reports system reviewed and no additional complaints, except as d ocumented Neurologic Neurologic: Reports system reviewed and no additional complaints, except as documented Hematologic/Lymphatic On Anticoagulants: No Patient History Medical History Bilateral primary osteoarthritis of hip Cerumen impaction Hearing loss Hyperlipidemia Hypertension Scoliosis Urinary tract disease (~2020) Vision changes Surgical History Anesthesia H/O total hip arthroplasty Status post hernia repair Family History Brother Suicide Mother Old age Father MVA (motor vehicle accident) Social History household members: significant other Smoking Status: Former smoker Smoking Status: Former smoker alcohol intake frequency: holidays/special occasions only Substance Use Type: marijuana Exam Initial Vital Signs Initial Vital Signs: Vital Signs Temperature 97.7 F 05/02/22 10:48 Pulse Rate 80 05/02/22 10:48 Respiratory Rate 18 05/02/22 10:48 Blood Pressure 199/83 H 05/02/22 10:48 Pulse Oximetry 94 05/02/22 10:48 Oxygen Delivery Method 05/02/22 10:48 HENMT Head: normal to inspection and normocephalic Resp Effort & Inspection: normal respiratory effort Auscultation: clear to auscultation bilaterally Cardio Rate: regular rate Rhythm: regular rhythm GI Inspection: normal to inspection Palpation: soft, No firm and No tender Skin General: no rashes or lesions noted Neuro General: patient alert, patient awake and moves all extremities Speech: speech normal Extrem General: normal to inspection and capillary refill normal Course Orders Ordered: ED Orders 05/02/22 10:58 CT abdomen pelvis w con Stat 05/02/22 11:11 Complete Blood Count AUTO DIFF Stat Comprehensive Metabolic Panel Stat Lipase Stat 05/02/22 11:22 Urine Culture Stat Urine Microscopic Stat Discontinued Medications Sodium Chloride (Normal Saline 0.9%) 1,000 mls @ 500 mls/hr IV BOLUS ONE Stop: 05/02/22 12:56 Last Admin: 05/02/22 11:50 Dose: 500 mls/hr Documented By: TERRELL Vital Signs Vital signs: Vital Signs - 8 hr 05/02/22 10:48 05/02/22 10:52 05/02/22 10:52 Temperature 97.7 F Pulse Rate 80 80 Respiratory Rate 18 Blood Pressure 199/83 H 199/93 H Pulse Oximetry 94 93 Oxygen Delivery Method Room Air Room Air 05/02/22 10:53 05/02/22 11:33 05/02/22 11:38 Temperature Pulse Rate 80 74 Respiratory Rate Blood Pressure 184/86 H Pulse Oximetry 96 95 Oxygen Delivery Method Room Air Room Air 05/02/22 12:00 05/02/22 12:01 05/02/22 12:01 Temperature Pulse Rate 72 72 Respiratory Rate Blood Pressure 149/63 H Pulse Oximetry 95 95 Oxygen Delivery Method Room Air Room Air 05/02/22 12:36 05/02/22 12:40 05/02/22 12:40 Temperature Pulse Rate 72 71 Respiratory Rate Blood Pressure 155/70 H Pulse Oximetry 96 96 Oxygen Delivery Method Room Air Room Air Medical Decision Making Lab Data Lab results reviewed: Yes I reviewed the patient's lab results. Result diagrams: 05/02/22 11:11 05/02/22 11:11 Labs: Lab Results 05/02/22 05/02/22 05/02/22 Range/Units 11:11 11:11 11:22 WBC 8.7 (4.5-11.0) X10^3/uL RBC 4.60 (4.0-5.2) X10^6/uL Hgb 13.8 (12.0-16.0) g/dL Hct 40.6 (36-46) % MCV 88.2 (80-100) fL MCH 29.9 (26-34) PG MCHC 33.9 (30-36) % RDW 14.4 (11.6-14.8) % Plt Count 220 (150-400) X10^3/uL Neut % (Auto) 64.6 (50-75) % Lymph % (Auto) 26.9 (25-40) % [place] % (Auto) 6.2 (3-14) % Eos % (Auto) 1.9 L (2-4) % Baso % (Auto) 0.4 (0-2) % Neut # (Auto) 5600 (0695-3097) /uL Lymph # (Auto) 2300 (6913-6165) /uL [place] # (Auto) 500 (0-900) /uL Eos # (Auto) 200 (0-450) /uL Baso # (Auto) 0 (0-100) /uL Sodium 140 (137-145) mmol/L Potassium 3.6 (3.4-5.1) mmol/L Chloride 102 (98-107) mmol/L Carbon Dioxide 30 (22-32) mmol/L BUN 14 (7-17) mg/dL Creatinine 0.78 (0.52-1.04) mg/dL Estimated GFR > 60 (>60) mL/min BUN/Creatinine Ratio 17.9 (6-22) Glucose 134 H (80-110) mg/dL Calcium 9.1 (8.4-10.2) mg/dL Total Bilirubin 0.9 (0.2-1.3) mg/dL AST 31 (14-36) IU/L ALT 28 (<35) IU/L Alkaline Phosphatase 78 (38-126) U/L Total Protein 7.8 (6.3-8.2) g/dL Albumin 4.2 (3.5-5.0) g/dL Globulin 3.6 (1.7-4.1) g/dL Albumin/Globulin Ratio 1.2 (1.0-2.8) Lipase 49 (23-300) U/L Urine RBC 0-1/hpf D (0-5/HPF) Urine WBC 10-30/hpf H (0-5/HPF) Ur Squamous Epith Cells 5-10 /hpf H (0-5/HPF) Ur Renal Epithelial Cell 5-10/hpf H (0-1/HPF) Urine Bacteria Moderate (10-30) H (None) Urine Mucus 2+ H (Negative) Ur Culture Indicated? Specimen cultured Urine Dip Bedside Urine Glucose Negative Bedside Urine Bilirubin - Negative Bedside Urine Ketone - Negative Urine Specific [place] 1.015 Bedside Urine Occult Blood - Negative Bedside Urine pH 6.5 Bedside Urine Protein +/- 15 Bedside Urine Urobilinogen - Negative Bedside Urine Nitrite - Negative Bedside Urine Leukocytes +++ 500 Esterase Point of care testing: Urine Dip Bedside Urine Glucose Negative Bedside Urine Bilirubin - Negative Bedside Urine Ketone - Negative Urine Specific [place] 1.015 Bedside Urine Occult Blood - Negative Bedside Urine pH 6.5 Bedside Urine Protein +/- 15 Bedside Urine Urobilinogen - Negative Bedside Urine Nitrite - Negative Bedside Urine Leukocytes +++ [address] scan - abdomen/pelvis: Radiologist's Impression: [place] [address] CT Scan Report Signed Patient: Anitha Sherman MR#: [id number] : 1940 Acct:[id number] Age/Sex: 81 / F Date of Service: 05/02/22 Loc: ED Accession Number: [id number] ?? Procedure: CT abdomen pelvis w con Ordering Provider: John Candelario D.O. PROCEDURE:? CT ABDOMEN PELVIS W CON ? INDICATIONS:? Generalized abdominal pain ? TECHNIQUE:? After the administration of intravenous contrast, axial sections acquired from the lung bases to the pubic symphysis.? Coronal and sagittal reformats were performed.? For radiation dose reduction, the following was used:? automated exposure control, adjustment of mA and/or kV according to patient size.? ? COMPARISON:? None. ? FINDINGS:? Image quality:? Excellent.? ? Lung bases:? Linear scarring/atelectasis are seen scattered in anterior and lateral periphery of bilateral lung bases.. Heart:? Heart size is enlarged, with trace amount of pericardial effusion. ? ABDOMEN: Liver:? There is hepatomegaly, no discrete hepatic lesion..? ? Gallbladder:? Unremarkable. Biliary ducts:? Unremarkable.? ? Pancreas:? Unremarkable.? ? Spleen:? Unremarkable.? ? Adrenal Glands:? Unremarkable.? ? Kidneys and Ureters:? Bilateral kidneys are normal in size.? No hydronephrosis.? Multiple left-sided nonobstructing renal calculi are seen.? Nonobstructing stone versus vascular calcification is seen in midpole right kidney.? No perinephric fat stranding.? No hydroureter. ? Stomach and Bowel:? Stomach, small bowel loops, and colon are unremarkable.? No mesenteric fat stranding.? No abscess collection.? Sigmoid diverticulosis is seen, no colonic wall thickening or mesenteric fat stranding. Peritoneum:? No abnormal intraperitoneal fluid.? No free air.? ? Ventral Wall: ? No hernias.? Abdominal Nodes:? No retroperitoneal or mesenteric adenopathy by size criteria.? Vessels:? Aorta and inferior vena cava are normal in size.? Moderate athe rosclerotic calcifications in abdominal aorta and bilateral iliac vessels are seen. ? PELVIS: Pelvic Organs:? Likely dystrophic calcification involving fundus of uterus is noted.? No gross abnormality is seen in bilateral adnexa. Bladder:? Unremarkable.? ? Pelvic Nodes: No enlarged lymph nodes.? Miscellaneous: No hernias are seen. ? ? ? Bones:? Patient is status post bilateral total hip arthroplasty.? No suspicious bony lesions.? No acute pelvic fracture or dislocation.? No acute vertebral body compression fracture.? Degenerative disc disease throughout lower thoracic and lumbar spine is seen. ? ? IMPRESSION:? 1. No acute inflammatory process is seen in abdomen or pelvis.? No free fluid or free air.? Sigmoid diverticulosis without evidence of acute diverticulitis.? No bowel obstruction. ? 2. Bilateral renal calculi.? No hydronephrosis or hydroureter.? Normal appearing urinary bladder. ? 3. Hepatomegaly, no discrete hepatic lesion. ? 4.? Prior bilateral total hip arthroplasty.? No acute fracture or dislocation.? No acute vertebral body compression fracture.? ? ? Dictated by: Aguila Chandler M.D. on 05/02/2022 at 12:54 ? ? Approved by: Aguila Chandler M.D. on 05/02/2022 at 12:59?? MDM Narrative Medical decision making narrative: CT scan shows no signs of acute pathology. She actually has not had any symptoms since yesterday. She states she has not had a bowel movement the past couple days. No indication for surgical consultation. No indication for antibiotics. I did discuss this with her and family at bedside. She was given return precautions. She expressed understanding and agreement. Discharge Plan Departure Patient Disposition: Home Clinical Impression: Abdominal pain Instructions: DI for Abdominal Pain-Adult Activity Restrictions/Additional Instructions: Recommend that you continue to take all of your medications as directed. Contact your primary doctor for a follow-up. Return to the emergency department for any new or worsening symptoms. Prescriptions: No Action insulin aspart U-100 [Novolog Flexpen U-100 Insulin] 100 unit/mL (3 mL) insulin pen 3 unit SUBCUT TID Qty: 3 1RF atorvastatin 80 mg tablet See Rx Instructions .ROUTE .COMPLEX Qty: 90 1RF Dose Instruction: TAKE ONE TABLET BY MOUTH EVERY DAY Rx Instructions: TAKE ONE TABLET BY MOUTH EVERY DAY clopidogrel 75 mg tablet 75 mg PO DAILY Qty: 90 1RF (DME) pen needle, diabetic [BD Mya 2nd Gen Pen Needle] 32 gauge x 5/32 needl e See Rx Instructions .Route Qty: 100 3RF Rx Instructions: As directed with Lantus once daily Lantus Solostar U-100 Insulin 100 unit/mL (3 mL) insulin pen See Rx Instructions .ROUTE .COMPLEX Qty: 9 2RF Dose Instruction: INJECT 20 UNITS SUBCUTANEOUSLY EVERY MORNING Rx Instructions: INJECT 20 UNITS SUBCUTANEOUSLY EVERY MORNING carvedilol 25 mg tablet See Rx Instructions .ROUTE .COMPLEX Qty: 90 1RF Dose Instruction: TAKE ONE TABLET BY MOUTH TWICE A DAY WITH FOOD Rx Instructions: TAKE ONE TABLET BY MOUTH TWICE A DAY WITH FOOD sitagliptin phosphate 50 mg tablet 50 mg PO BID Qty: 60 5RF Rx Instructions: Start 1 per day at dinner for 1 week then advanced to b.i.d. aspirin [Adult Aspirin Regimen] 81 mg tablet,delayed release (DR/EC) 81 mg PO DAILY melatonin 3 mg capsule 3 mg PO BEDTIME PRN sennosides [senna] 8.6 mg tablet 8.6 mg PO DAILY gabapentin 100 mg capsule 200 mg PO BEDTIME Qty: 100 1RF Rx Instructions: Initiate 1 pill q.h.s. for the 1st 10 days then advanced to 2 p.o. q.h.s. losartan 50 mg tablet 50 mg PO DAILY Qty: 90 3RF hydralazine 50 mg tablet 50 mg PO TID Qty: 270 3RF pimecrolimus [Elidel] 1 % cream 1 applic topical BID Qty: 30 1RF Referrals: Lowell Weathers DO [Primary Care Provider] -
--- NOTE | 2022-05-02 10:58 | DI.CT.S_ITS ---
PROCEDURE: CT ABDOMEN PELVIS W CON INDICATIONS: Generalized abdominal pain TECHNIQUE: After the administration of intravenous contrast, axial sections acquired from the lung bases to the pubic symphysis. Coronal and sagittal reformats were performed. For radiation dose reduction, the following was used: automated exposure control, adjustment of mA and/or kV according to patient size. COMPARISON: None. FINDINGS: Image quality: Excellent. Lung bases: Linear scarring/atelectasis are seen scattered in anterior and lateral periphery of bilateral lung bases.. Heart: Heart size is enlarged, with trace amount of pericardial effusion. ABDOMEN: Liver: There is hepatomegaly, no discrete hepatic lesion.. Gallbladder: Unremarkable. Biliary ducts: Unremarkable. Pancreas: Unremarkable. Spleen: Unremarkable. Adrenal Glands: Unremarkable. Kidneys and Ureters: Bilateral kidneys are normal in size. No hydronephrosis. Multiple left-sided nonobstructing renal calculi are seen. Nonobstructing stone versus vascular calcification is seen in midpole right kidney. No perinephric fat stranding. No hydroureter. Stomach and Bowel: Stomach, small bowel loops, and colon are unremarkable. No mesenteric fat stranding. No abscess collection. Sigmoid diverticulosis is seen, no colonic wall thickening or mesenteric fat stranding. Peritoneum: No abnormal intraperitoneal fluid. No free air. Ventral Wall: No hernias. Abdominal Nodes: No retroperitoneal or mesenteric adenopathy by size criteria. Vessels: Aorta and inferior vena cava are normal in size. Moderate atherosclerotic calcifications in abdominal aorta and bilateral iliac vessels are seen. PELVIS: Pelvic Organs: Likely dystrophic calcification involving fundus of uterus is noted. No gross abnormality is seen in bilateral adnexa. Bladder: Unremarkable. Pelvic Nodes: No enlarged lymph nodes. Miscellaneous: No hernias are seen. Bones: Patient is status post bilateral total hip arthroplasty. No suspicious bony lesions. No acute pelvic fracture or dislocation. No acute vertebral body compression fracture. Degenerative disc disease throughout lower thoracic and lumbar spine is seen. IMPRESSION: 1. No acute inflammatory process is seen in abdomen or pelvis. No free fluid or free air. Sigmoid diverticulosis without evidence of acute diverticulitis. No bowel obstruction. 2. Bilateral renal calculi. No hydronephrosis or hydroureter. Normal appearing urinary bladder. 3. Hepatomegaly, no discrete hepatic lesion. 4. Prior bilateral total hip arthroplasty. No acute fracture or dislocation. No acute vertebral body compression fracture. Dictated by: Aguila Chandler M.D. on 05/02/2022 at 12:54 Approved by: Aguila Chandler M.D. on 05/02/2022 at 12:59
[2022-05-02 11:44] LABS: Add Manual Diff / Slide Review NO; Basophils Absolute Auto 0 /uL (0-100); Basophils Percent Auto 0.4 % (0-2); Eosinophils Absolute Auto 200 /uL (0-450); Eosinophils Percent Auto 1.9 % (2-4); Hematocrit 40.6 % (36-46); Hemoglobin 13.8 g/dL (12.0-16.0); Lymphocytes Absolute Auto 2300 /uL (1100-4500); Lymphocytes Percent Auto 26.9 % (25-40); Mean Corpuscular HGB Conc 33.9 % (30-36); Mean Corpuscular Hemoglobin 29.9 PG (26-34); Mean Corpuscular Volume 88.2 fL (80-100); Monocytes Absolute Auto 500 /uL (0-900); Monocytes Percent Auto 6.2 % (3-14); Neutrophils Absolute Auto 5600 /uL (1500-7000); Neutrophils Percent Auto 64.6 % (50-75); Platelet Count 220 X10^3/uL (150-400); Red Cell Distribution Width 14.4 % (11.6-14.8); White Blood Cell Count 8.7 X10^3/uL (4.5-11.0)
[2022-05-02 11:45] LABS: Bacteria Urine Moderate (10-30); Culture Indicated Urine Specimen Cultured; Mucus Urine 2+ (Negative); RBC Urine 0-1/HPF (0-5/HPF); Renal Epithelial Cells Urine 5-10/HPF (0-1/HPF); Squamous Epithelial Cell Urine 5-10 /HPF (0-5/HPF); WBC Urine 10-30/HPF (0-5/HPF)
[2022-05-02] MEDS: SODIUM CHLORIDE 0.9% 1,000 ML 500 ML IV (11:50)
[2022-05-02 11:56] LABS: Alanine Aminotransferase 28 IU/L (<35); Albumin 4.2 g/dL (3.5-5.0); Albumin Globulin Ratio 1.2 (1.0-2.8); Alkaline Phosphatase 78 U/L (38-126); Aspartate Aminotransferase 31 IU/L (14-36); BUN Creatinine Ratio 17.9 (6-22); Bilirubin Total 0.9 mg/dL (0.2-1.3); Blood Urea Nitrogen 14 mg/dL (7-17); Calcium 9.1 mg/dL (8.4-10.2); Carbon Dioxide 30 mmol/L (22-32); Chloride 102 mmol/L (98-107); Estimated Glomerular Filt Rate > 60 mL/min (>60); Globulin 3.6 g/dL (1.7-4.1); Glucose 134 mg/dL (80-110); HEMOLYSIS < 15 (0-50); Lipase 49 U/L (23-300); Potassium 3.6 mmol/L (3.4-5.1); Sodium 140 mmol/L (137-145); Total Protein 7.8 g/dL (6.3-8.2)
== END 2022-05-02 13:15 | disposition home or self-care (01) ==
PROVIDERS: Emergency Provider Emergency Medicine; Family Provider Family Medicine; PCP Family Medicine
DX: R10.9 Unspecified abdominal pain (principal)
CPT/HCPCS: 36415; 74177; 80053; 81003; 81015; 83690; 85025; 87086; 99284; Q9967

== ENCOUNTER 2022-05-28 00:36 | Inpatient (IN) | payer MEDICARE, MEDICAID, SELFPAY ==
[2021-11-15 01:05] VITALS: BMI 32.8
[2022-05-28] VITALS (113 sets, daily range): BP systolic 109–285; BP diastolic 55–187; PULSE 61–137; RESP 18–47; TEMP 36.2–36.7; O2SAT 84–100; BMI 33.4
--- NOTE | 2022-05-28 00:41 | DI.RAD.S_ITS ---
PROCEDURE: XR CHEST 1V INDICATIONS: SOB with fever TECHNIQUE: One view of the chest was acquired. COMPARISON: None. FINDINGS: Evaluation limited by suboptimal positioning. Surgical changes and devices: None. Lungs and pleura: Limited evaluation due to rotation and suboptimal positioning with incomplete inclusion of the left lung base laterally. There is hyperinflation of the lungs with flattening of the hemidiaphragms compatible with COPD. There are increased opacities in the left lung base suggestive of consolidation. No evidence of pneumothorax. A small left pleural effusion is suspected. Mediastinum: Evaluation limited due to rotation. Heart size is likely within normal limits given technique. Bones and chest wall: No suspicious bony lesions. Overlying soft tissues appear unremarkable. IMPRESSION: 1. Limited study demonstrates suspected left basilar consolidation and small left pleural effusion. Consider a repeat study when clinically feasible. Dictated by: Chuy Goodrich M.D. on 05/28/2022 at 1:23 Approved by: Chuy Goodrich M.D. on 05/28/2022 at 1:26
--- NOTE | 2022-05-28 00:52 | ED_ITS ---
HPI - Fall General Chief Complaint: Fall Stated Complaint: SOB- temp 102.3 Time Seen by Provider: 05/28/22 00:40 Source: patient and EMS Mode of arrival: EMS Limitations: no limitations History of Present Illness HPI Narrative: Patient is an 81-year-old female is an insulin-dependent diabetic. History of CVA. Has never had a heart attack. History of hypertension [place]ness of breath and was initially reported of a fever. Patient states she had a scheduled appointment with her primary doctor earlier today to discuss her blood pressure medications. After returning home she states she fell. She is little unsure exactly how she fell. She is unsure if she got dizzy or lost her balance. She fell down onto her buttocks. She did not hit her head. There was no loss of consciousness. Had some point after falling she became short of breath. She is not normally on home oxygen. Does not have any diagnosed underlying lung pathology. EMS was called by her partner because she states that she was becoming short of breath and her partner was concerned. It was reported prior to arrival that she had a fever of 102.3. Hypoxic in the 80s requiring oxygen by nasal cannula which had to be adjusted in route. Here in the emergency department she denies chest pain. Denies cough. States she just generally does not feel very well. No specific injury from the fall. No arm or leg discomfort. No hip discomfort. No change in bowel habits. She received labetalol for high blood pressure by EMS in route. Had some point there was also report that the patient was altered. Related Data Home Medications Medication Instructions Recorded Confirmed aspirin 81 mg tablet,delayed 81 mg PO DAILY 08/09/21 05/27/22 release (Adult Aspirin Regimen) Previous Rx's Medication Instructions Recorded insulin aspart U-100 100 unit/mL 3 unit (0.03 mL) SUBCUT TID #3 mL 08/29/21 (3 mL) subcutaneous pen (Novolog Flexpen U-100 Insulin aspart) gabapentin 100 mg capsule 200 mg PO BEDTIME #100 caps 09/30/21 clopidogrel 75 mg tablet 75 mg PO DAILY #90 tabs 12/23/21 hydralazine 50 mg tablet 50 mg PO TID #270 tabs 01/28/22 insulin glargine 100 unit/mL (3 See Rx Instructions .Route 09/06/22 mL) subcutaneous pen (Lantus .COMPLEX #9 mL Solostar U-100 Insulin) losartan 50 mg tablet 50 mg PO DAILY #90 tabs 01/28/22 pimecrolimus 1 % topical cream 1 applic topical BID #30 grams 01/28/22 (Elidel) carvedilol 25 mg tablet See Rx Instructions .Route 04/15/22 .COMPLEX #90 tabs atorvastatin 40 mg tablet See Rx Instructions .Route 05/27/22 .COMPLEX #90 tabs pen needle, diabetic 32 gauge x #100 ea 05/27/22 (BD Mya 2nd Gen Pen Needle) Allergies Allergy/AdvReac Type Severity Reaction Status Date / Time clonidine Allergy Verified 05/02/22 10:55 hydrochlorothiazide Allergy Verified 05/02/22 10:55 Sulfa (Sulfonamide Allergy RASH Verified 05/02/22 10:55 Antibiotics) amlodipine [AMLODIPINE] AdvReac Intermediate DIZZY, Verified 05/02/22 10:55 MEMORY LOSS lisinopril [LISINOPRIL] AdvReac Intermediate FATIGUE Verified 05/02/22 10:55 SODIUM TETRADECYL SULFATE Allergy Uncoded 04/08/22 15:19 clorine AdvReac Mild Uncoded 04/08/22 15:19 Review of Systems Constitutional Constitutional: Denies fever(s), Denies headache(s) and Reports malaise Eyes Eyes: Reports system reviewed and no additional complaints, except as documented ENT Ears, Nose, Mouth, and Throat: Denies headache(s) and Denies sore throat Cardiovascular Cardiovascular: Denies chest pain and Reports dyspnea Respiratory Respiratory: Denies cough and Reports dyspnea Gastrointestinal Gastrointestinal: Denies abdominal pain, Denies diarrhea, Denies nausea and Denies vomiting Genitourinary Genitourinary: Denies dysuria Musculoskeletal Musculoskeletal: Denies arthralgias, Denies back pain and Denies arthralgias Integumentary/Breasts Skin/Breast: Denies rash Neurologic Neurologic: Reports system reviewed and no additional complaints, except as documented and Denies headache(s) Hematologic/Lymphatic On Anticoagulants: No Allergic/Immunologic Allergic/Immunologic: Reports system reviewed and no additional complaints, except as documented Patient History Medical History Bilateral primary osteoarthritis of hip Cerumen impaction Hearing loss Hyperlipidemia Hypertension Intercostal muscle strain Scoliosis Urinary tract disease (~2020) Vision changes Surgical History Anesthesia H/O total hip arthroplasty Status post hernia repair Family History Brother Suicide Mother Old age Father MVA (motor vehicle accident) Social History household members: significant other Smoking Status: Former smoker Smoking Status: Former smoker alcohol intake frequency: holidays/special occasions only Substance Use Type: marijuana Exam Initial Vital Signs Initial Vital Signs: Vital Signs Temperature 98.0 F 05/28/22 00:37 Pulse Rate 87 05/28/22 00:37 Respiratory Rate 22 05/28/22 00:37 Blood Pressure 134/116 H 05/28/22 00:37 Pulse Oximetry 96 05/28/22 00:37 Oxygen Delivery Method 05/28/22 00:37 Oxygen Flow Rate 2 05/28/22 00:37 Const General: cooperative, comfortable, No combative, No diaphoretic and No ill appearing HENMT Head: normal to inspection and normocephalic Mouth: oral mucosae normal Eyes General: Yes appearance normal, both eyes and all related structures Resp Effort & Inspection: no respiratory distress and tachypneic Auscultation: clear to auscultation bilaterally, no rhonchi and no wheezes Cardio Rate: regular rate Rhythm: regular rhythm GI Inspection: normal to inspection and non-distended Skin General: no rashes or lesions noted Neuro General: patient alert, patient awake, patient oriented x3 and moves all extre mities Cognition: normal cognition Speech: speech normal Extrem General: No edema Psych Appearance: grossly normal and well kempt Scores GCS [place] coma scale eye opening: Spontaneous Gise[place] coma scale verbal response: Orientated G[place]le coma scale motor response: Obey commands [place] coma scale total score: 15 Course Orders Ordered: ED Orders 05/28/22 00:41 XR chest 1V Stat 05/28/22 00:42 EKG-12 Lead Stat 05/28/22 00:55 Covid-19 + FLU A/B + RSV - PCR Stat 05/28/22 01:05 Complete Blood Count AUTO DIFF Stat Comprehensive Metabolic Panel Stat D Dimer Stat Lactate (Lactic Acid) Stat Lipase Stat NT-proBNP (BNP-Adult 18+) Stat Procalcitonin Stat Troponin & CK Cardiac Panel Stat 05/28/22 01:38 Urine Culture Stat 05/28/22 02:15 CT angio chest PE protocol Stat 05/28/22 02:25 Blood Culture Stat 05/28/22 03:02 Troponin & CK Cardiac Panel Stat Sodium Chloride (Normal Saline 0.9%) 1,000 mls @ 125 mls/hr IV CONT UDAY Discontinued Medications Azithromycin 500 mg/ Dextrose 250 mls @ 250 mls/hr IV NOW ONE Stop: 05/28/22 01:38 Ceftriaxone Sodium 1,000 mg/ (Sodium Chloride) 100 mls @ 200 mls/hr IV NOW ONE Stop: 05/28/22 01:38 Last Admin: 05/28/22 02:50 Dose: 200 mls/hr Documented By: LAUREANO Nitroglycerin (Nitroglycerin Oint 1 Inch/Gm Oint...G.) 1 inch TOP NOW ONE Stop: 05/28/22 01:40 Last Admin: 05/28/22 02:45 Dose: 1 inch Documented By: LAUREANO Vital Signs Vital signs: Vital Signs - 8 hr 05/28/22 00:37 05/28/22 00:46 05/28/22 01:00 Temperature 98.0 F Pulse Rate 87 86 86 Respiratory Rate 22 34 H 32 H Blood Pressure 134/116 H Pulse Oximetry 96 96 95 Oxygen Delivery Method Nasal Cannula Nasal Cannula Oxygen Flow Rate 2 2 05/28/22 01:15 05/28/22 01:15 05/28/22 01:30 Temperature Pulse Rate 89 80 Respiratory Rate 38 H 28 H Blood Pressure 232/104 H Pulse Oximetry 90 L 89 L Oxygen Delivery Method Oxygen Flow Rate 05/28/22 01:31 05/28/22 01:31 05/28/22 02:00 Temperature Pulse Rate 79 74 Respiratory Rate 28 H 25 H Blood Pressure 197/81 H Pulse Oximetry 89 L 87 L Oxygen Delivery Method Oxygen Flow Rate 05/28/22 02:01 05/28/22 02:01 05/28/22 02:45 Temperature Pulse Rate 75 93 H Respiratory Rate 26 H 27 H Blood Pressure 159/70 H Pulse Oximetry 87 L 84 L Oxygen Delivery Method Oxygen Flow Rate 05/28/22 03:00 05/28/22 03:30 05/28/22 03:30 Temperature Pulse Rate 74 73 Respiratory Rate 28 H 20 22 Blood Pressure 121/69 Pulse Oximetry 97 95 95 Oxygen Delivery Method Nasal Cannula Oxygen Flow Rate 2 MDM - Fall Medical Records Attestation: I reviewed the patient's medical records. Lab Data Attestation: I reviewed the patient's lab results. Result diagrams: 05/28/22 01:05 05/28/22 01:05 Labs: Lab Results 05/28/22 05/28/22 05/28/22 Range/Units 00:55 01:05 01:05 WBC 14.3 H (4.5-11.0) X10^3/uL RBC 4.38 (4.0-5.2) X10^6/uL Hgb 12.7 (12.0-16.0) g/dL Hct 38.5 (36-46) % MCV 87.9 (80-100) fL MCH 29.0 (26-34) PG MCHC 33.1 (30-36) % RDW 14.2 (11.6-14.8) % Plt Count 180 (150-400) X10^3/uL Neut % (Auto) 87.0 H (50-75) % Lymph % (Auto) 8.2 L (25-40) % [place] % (Auto) 4.5 (3-14) % Eos % (Auto) 0.2 L (2-4) % Baso % (Auto) 0.1 (0-2) % Neut # (Auto) 33713 H (3410-6601) /uL Lymph # (Auto) 1200 (4960-3409) /uL [place] # (Auto) 600 (0-900) /uL Eos # (Auto) 0 (0-450) /uL Baso # (Auto) 0 (0-100) /uL D-Dimer (<500) ng/ml Sodium 137 (137-145) mmol/L Potassium 3.9 (3.4-5.1) mmol/L Chloride 98 (98-107) mmol/L Carbon Dioxide 33 H (22-32) mmol/L BUN 11 (7-17) mg/dL Creatinine 0.67 (0.52-1.04) mg/dL Estimated GFR > 60 (>60) mL/min BUN/Creatinine Ratio 16.4 (6-22) Glucose 202 H (80-110) mg/dL Lactate (0.7-2.1) mmol/L Calcium 8.7 (8.4-10.2) mg/dL Total Bilirubin 1.3 (0.2-1.3) mg/dL AST 33 (14-36) IU/L ALT 32 (<35) IU/L Alkaline Phosphatase 74 (38-126) U/L Total Creatine Kinase 51 (30-135) U/L CK-MB (CK-2) TNP CK-MB (CK-2) Rel Index TNP Troponin I 0.037 H (0.01-0.034) ng/mL NT-Pro-B Natriuret Pep 889 H (<450) pg/mL Total Protein 7.7 (6.3-8.2) g/dL Albumin 3.9 (3.5-5.0) g/dL Globulin 3.8 (1.7-4.1) g/dL Albumin/Globulin Ratio 1.0 (1.0-2.8) Lipase 34 (23-300) U/L Procalcitonin 0.21 (<0.5) ng/mL SARS-CoV-2 (PCR) Negative (Negative) Influenza A (RT-PCR) Flu a negative (NEGATIVE) Influenza B (RT-PCR) Flu b negative (NEGATIVE) RSV (PCR) Negative (Negative) 05/28/22 05/28/22 05/28/22 Range/Units 01:05 01:05 03:02 WBC (4.5-11.0) X10^3/uL RBC (4.0-5.2) X10^6/uL Hgb (12.0-16.0) g/dL Hct (36-46) % MCV (80-100) fL MCH (26-34) PG MCHC (30-36) % RDW (11.6-14.8) % Plt Count (150-400) X10^3/uL Neut % (Auto) (50-75) % Lymph % (Auto) (25-40) % [place] % (Auto) (3-14) % Eos % (Auto) (2-4) % Baso % (Auto) (0-2) % Neut # (Auto) (1629-2788) /uL Lymph # (Auto) (1720-1516) /uL [place] # (Auto) (0-900) /uL Eos # (Auto) (0-450) /uL Baso # (Auto) (0-100) /uL D-Dimer 41838 H (<500) ng/ml Sodium (137-145) mmol/L Potassium (3.4-5.1) mmol/L Chloride (98-107) mmol/L Carbon Dioxide (22-32) mmol/L BUN (7-17) mg/dL Creatinine (0.52-1.04) mg/dL Estimated GFR (>60) mL/min BUN/Creatinine Ratio (6-22) Glucose (80-110) mg/dL Lactate 1.1 (0.7-2.1) mmol/L Calcium (8.4-10.2) mg/dL Total Bilirubin (0.2-1.3) mg/dL AST (14-36) IU/L ALT (<35) IU/L Alkaline Phosphatase (38-126) U/L Total Creatine Kinase 54 (30-135) U/L CK-MB (CK-2) TNP CK-MB (CK-2) Rel Index TNP Troponin I 0.049 H (0.01-0.034) ng/mL NT-Pro-B Natriuret Pep (<450) pg/mL Total Protein (6.3-8.2) g/dL Albumin (3.5-5.0) g/dL Globulin (1.7-4.1) g/dL Albumin/Globulin Ratio (1.0-2.8) Lipase (23-300) U/L Procalcitonin (<0.5) ng/mL SARS-CoV-2 (PCR) (Negative) Influenza A (RT-PCR) (NEGATIVE) Influenza B (RT-PCR) (NEGATIVE) RSV (PCR) (Negative) Imaging Data Chest x-ray: Radiologist's Impression: [address] [address] XRay Report Signed Patient: Anitha Sherman MR#: [id number] : 1940 Acct:[id number] Age/Sex: 81 / F Date of Service: 05/28/22 Loc: ED Accession Number: [id number] ?? Procedure: XR chest 1V Ordering Provider: John Canedlario D.O. PROCEDURE:? XR CHEST 1V ? INDICATIONS:? SOB with fever ? TECHNIQUE:? One view of the chest was acquired.? ? COMPARISON:? None. ? FINDINGS:? ? Evaluation limited by suboptimal positioning. ? Surgical changes and devices:? None.? ? Lungs and pleura:? Limited evaluation due to rotation and suboptimal positioning with incomplete inclusion of the left lung base laterally. There is hyperinflation of the lungs with flattening of the hemidiaphragms compatible with COPD.? There are increased opacities in the left lung base suggestive of consolidation.? No evidence of pneumothorax.? A small left pleural effusion is suspected. ? Mediastinum:? Evaluation limited due to rotation.? Heart size is likely within normal limits given technique. ? Bones and chest wall:? No suspicious bony lesions.? Overlying soft tissues appear unremarkable.? ? IMPRESSION:? ? 1. Limited study demonstrates suspected left basilar consolidation and small left pleural effusion.? Consider a repeat study when clinically feasible.? ? ? Dictated by: Chuy Goodrich M.D. on 05/28/2022 at 1:23 ? ? Approved by: Chuy Goodrich M.D. on 05/28/2022 at 1:26?? CT scan - chest: Radiologist's Impression: Mild respiratory motion limited examination No definitive pulmonary embolus identified Bronchial wall thickening suggests bronchitis Coronary artery disease Subsegmental atelectasis ECG Data Attestation: I personally reviewed and interpreted this ECG as follows: Interpretation: Sinus rhythm Ventricular rate 86 Normal axis Normal QRS Normal QTC No ST T wave changes MDM Narrative Medical decision making narrative: Prior to arrival the report was that the patient was febrile when short of breath and needing oxygen. Was also hypertensive. She did receive labetalol prior to arrival. Was also report that she was confused however here in the emergency department she is alert oriented x3. With a GCS of 15. Once her labs resulted as a leukocytosis with a left shift she was given Rocephin and azithromycin for treatment of presumed pneumonia. He denies chest pain. Has no ST changes on her EKG. Troponin is indeterminate. Upon further evaluation on we received more lab testing and x-rays I have lesser concern for pneumonia. D-dimer was ordered. This was elevated. CT scan of the chest shows no signs of pulmonary embolism no focal consolidations. Also considered hypertensive emergency/acute CHF given her blood pressure however even after her blood pressure was improved the patient was still requiring oxygen and was desatting to the mid 80s on room air. She is no lower extremity swelling. Blood cultures were obtained. Given her need for oxygen which is not normal for her who will admit for further evaluation and treatment. Discussed the need for admission with the patient who expressed understanding. Discussed the case with Dr. Red hospitalist on-call who will admit for further evaluation. Discharge Plan Departure Patient Disposition: Admitted As Inpatient Clinical Impression: Hypertension, Shortness of breath, Hypoxia Admit Date/Time: 05/28/22 04:16 Admit Provider: Az Red
[2022-05-28 01:20] LABS: Add Manual Diff / Slide Review NO; Basophils Absolute Auto 0 /uL (0-100); Basophils Percent Auto 0.1 % (0-2); Eosinophils Absolute Auto 0 /uL (0-450); Eosinophils Percent Auto 0.2 % (2-4); Hematocrit 38.5 % (36-46); Hemoglobin 12.7 g/dL (12.0-16.0); Lymphocytes Absolute Auto 1200 /uL (1100-4500); Lymphocytes Percent Auto 8.2 % (25-40); Mean Corpuscular HGB Conc 33.1 % (30-36); Mean Corpuscular Volume 87.9 fL (80-100); Monocytes Absolute Auto 600 /uL (0-900); Monocytes Percent Auto 4.5 % (3-14); Neutrophils Absolute Auto 12400 /uL (1500-7000); Platelet Count 180 X10^3/uL (150-400); Red Blood Cell Count 4.38 X10^6/uL (4.0-5.2); Red Cell Distribution Width 14.2 % (11.6-14.8); White Blood Cell Count 14.3 X10^3/uL (4.5-11.0)
[2022-05-28 01:25] LABS: Lactate (Lactic Acid) 1.1 mmol/L (0.7-2.1)
[2022-05-28 01:27] LABS: Alanine Aminotransferase 32 IU/L (<35); Albumin 3.9 g/dL (3.5-5.0); Alkaline Phosphatase 74 U/L (38-126); Aspartate Aminotransferase 33 IU/L (14-36); BUN Creatinine Ratio 16.4 (6-22); Bilirubin Total 1.3 mg/dL (0.2-1.3); Blood Urea Nitrogen 11 mg/dL (7-17); Calcium 8.7 mg/dL (8.4-10.2); Carbon Dioxide 33 mmol/L (22-32); Chloride 98 mmol/L (98-107); Creatine Kinase 51 U/L (30-135); Estimated Glomerular Filt Rate > 60 mL/min (>60); Globulin 3.8 g/dL (1.7-4.1); Glucose 202 mg/dL (80-110); HEMOLYSIS < 15 (0-50); Lipase 34 U/L (23-300); Potassium 3.9 mmol/L (3.4-5.1); Sodium 137 mmol/L (137-145); Total Protein 7.7 g/dL (6.3-8.2)
--- NOTE | 2022-05-28 01:30 | PC.NURSE ---
Resting quietly in NAD - no needs voiced - PWD with respirations equal and unlabored bilaterally - on 2L of O2 via NC
[2022-05-28 01:37] LABS: NT-proBNP (BNP-Adult 18+) 889 pg/mL (<450); Troponin I 0.037 ng/mL (0.01-0.034)
[2022-05-28 01:42] LABS: Procalcitonin 0.21 ng/mL (<0.5)
[2022-05-28 01:45] LABS: Influenza A - CEPHEID Flu A NEGATIVE (NEGATIVE); Influenza B - CEPHEID Flu B NEGATIVE (NEGATIVE); Respiratory Syncytial Virus Negative (Negative)
[2022-05-28 01:49] LABS: COVID-19 CEPHEID 4-PLEX PCR Negative (Negative)
[2022-05-28 02:11] LABS: D Dimer 26931 ng/ml (<500)
--- NOTE | 2022-05-28 02:15 | DI.CT.S_ITS ---
PROCEDURE: CT ANGIO CHEST PE PROTOCOL INDICATIONS: Chest pain, shortness of breath, tachycardia TECHNIQUE: After the administration of intravenous contrast, 2 mm thick sections acquired from the pulmonary apices to the posterior costophrenic angles. 3-dimensional maximum intensity projection (MIP) coronal and sagittal reformats were then acquired through the thorax. For radiation dose reduction, the following was used: automated exposure control, adjustment of mA and/or kV according to patient size. COMPARISON: None. FINDINGS: Image quality: Excellent. Pulmonary arteries: Pulmonary arteries are normal in size, and demonstrate no intraluminal filling defects to suggest central pulmonary embolism. Lungs and pleura: Subsegmental atelectasis in periphery of bilateral lung are seen most notably in bilateral lower lung . No pleural effusions or pneumothorax. Central and peripheral airways are patent. Mild bilateral bronchial wall thickening is noted which may represent bronchitis. Mediastinum: Heart size is enlarged, without pericardial effusion. No mediastinal or hilar adenopathy. [id number] atherosclerotic calcifications are noted in thoracic aorta and coronary vessels. Thoracic aorta is normal in caliber and enhancement. Esophagus is normal in caliber, without hiatal hernia. Bones and chest wall: No suspicious bony lesions. Moderate dextroscoliosis of thoracic and lumbar spine is seen . Degenerative endplate changes are noted throughout thoracic spine. Thyroid gland is within normal limits. No axillary or supraclavicular adenopathy. Abdomen: Visualized upper abdominal solid organs appear normal in the early arterial phase of enhancement. IMPRESSION: 1. No evidence of pulmonary emboli. No thoracic aortic aneurysm or gross dissection. 2. Subsegmental atelectasis scattered in periphery of bilateral lung . No pleural effusion or pneumothorax. 3. Mild bilateral bronchial wall thickening which may indicate bronchitis. 4. Cardiomegaly, no pericardial effusion. No gross mediastinal or hilar lymphadenopathy by size criteria. [id number] atherosclerotic disease. No discrepancies from preliminary reading. Dictated by: Aguila Chandler M.D. on 05/28/2022 at 8:07 Approved by: Aguila Chandler M.D. on 05/28/2022 at 8:11
--- NOTE | 2022-05-28 02:30 | PC.NURSE ---
To radiology via stretcher
[2022-05-28] MEDS: NITROGLYCERIN OINT 1 INCH/GM OINT...G. TOP (02:45)
--- NOTE | 2022-05-28 02:45 | PC.NURSE ---
Returns to the room from radiology
[2022-05-28] MEDS: cefTRIAXone 1,000 MG in SODIUM CHLORIDE 0.9% 100 ML 200 MG IV (02:50)
[2022-05-28 03:25] LABS: Creatine Kinase 54 U/L (30-135)
[2022-05-28] MEDS: AZITHROMYCIN 500 MG in DEXTROSE 5% IN WATER 250 ML 250 MG IV (03:30)
[2022-05-28 03:38] LABS: Troponin I 0.049 ng/mL (0.01-0.034)
--- NOTE | 2022-05-28 03:45 | PC.NURSE ---
Resting quietly in NAD - no needs voiced - PWD with respirations equal and unlabored bilaterally
--- NOTE | 2022-05-28 04:45 | PC.NURSE ---
Up to the bedside commode for a bowel movement - pt able to stand and transfer without assistance from the RN - steady gait
--- NOTE | 2022-05-28 05:30 | PC.NURSE ---
Resting quietly in NAD - no needs voiced - PWD with respirations equal and unlabored bilaterally - warm blankets applied for comfort - lights dimmed
--- NOTE | 2022-05-28 06:14 | P.HP_ITS ---
History of Present Illness History of Present Illness Date Patient Seen: 05/28/22 Time Patient Seen: 06:00 Chief complaint: SOB- temp 102.3 Narrative: Ms. 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 Apparently she was able to tell the ED physician she had a fall onto her backside, and she had no head strike. It was unclear why she fell. However, she is able to tell me even less about the mechanism of fall, just that she fell earlier today and she wasn't clear how she fell or what she hit. When I see her she is completely denying any symptoms. She says she doesn't feel normal, but she denies headache, weakness, nausea, vomiting, abdominal pain, chest pain, cough, shortness of breath, fevers or chills. However when she was still at home she apparently started becoming short of breath, which is why her partner called EMS, she was flown off [facility]. EMS noted she had a fever of 102 and O2 sats were in the 80s. In the ED workup was done, vitals notable for afebrile. Blood pressure was labile but she did have a blood pressure in the 200s systolic. Labs notable for WBC 14.3, hgb 12.7, plts 180. Creatinine 0.67. Trop 0.037 then 0.049. BNP 889. Procal 0.21. COVID, flu, rsv negative. D-dimer 81510. Chest xray read as left basilar consolidation and small left pleural effusion. CTA chest read as no PE, but there was noted bronchial wall thickening, and subsegmental atelectasis. EKG showed no acute ischemia. She received Iv antibiotics and was admitted for further treatment. I did discuss the case with the ED physician. Patient History Medical History Bilateral primary osteoarthritis of hip Cerumen impaction Hearing loss Hyperlipidemia Hypertension Intercostal muscle strain Scoliosis Urinary tract disease (~2020) Vision changes Surgical History Anesthesia H/O total hip arthroplasty Status post hernia repair Family & Social History Family History Brother Suicide Mother Old age Father MVA (motor vehicle accident) Social History: household members significant other Safety & Behavioral: Feels Safe in Current Yes Environment Been Physically Hurt or No Threatened By a Person Tobacco & Substance use: Smoking Status Former smoker alcohol intake frequency holiday/special occasion Substance Use Type marijuana Meds Home Medications and Allergies Home Medications Medication Instructions Recorded Confirmed Type aspirin 81 mg tablet,delayed 81 mg PO DAILY 08/09/21 05/27/22 History release (Adult Aspirin Regimen) insulin aspart U-100 100 unit/mL 3 unit (0.03 mL) SUBCUT TID #3 mL 08/29/21 05/27/22 Rx (3 mL) subcutaneous pen (Novolog Flexpen U-100 Insulin aspart) gabapentin 100 mg capsule 200 mg PO BEDTIME #100 caps 09/30/21 05/27/22 Rx clopidogrel 75 mg tablet 75 mg PO DAILY #90 tabs 12/23/21 05/27/22 Rx hydralazine 50 mg tablet 50 mg PO TID #270 tabs 01/28/22 05/27/22 Rx insulin glargine 100 unit/mL (3 See Rx Instructions .Route 01/28/22 05/27/22 Rx mL) subcutaneous pen (Lantus .COMPLEX #9 mL Solostar U-100 Insulin) losartan 50 mg tablet 50 mg PO DAILY #90 tabs 01/28/22 05/27/22 Rx pimecrolimus 1 % topical cream 1 applic topical BID #30 grams 01/28/22 05/27/22 Rx (Elidel) carvedilol 25 mg tablet See Rx Instructions .Route 04/15/22 05/27/22 Rx .COMPLEX #90 tabs atorvastatin 40 mg tablet See Rx Instructions .Route 05/27/22 05/27/22 Rx .COMPLEX #90 tabs pen needle, diabetic 32 gauge x #100 ea 05/27/22 05/27/22 Rx /32 (BD Mya 2nd Gen Pen Needle) Allergies Allergy/AdvReac Type Severity Reaction Status Date / Time clonidine Allergy Verified 05/02/22 10:55 hydrochlorothiazide Allergy Verified 05/02/22 10:55 Sulfa (Sulfonamide Allergy RASH Verified 05/02/22 10:55 Antibiotics) amlodipine [AMLODIPINE] AdvReac Intermediate DIZZY, Verified 05/02/22 10:55 MEMORY LOSS lisinopril [LISINOPRIL] AdvReac Intermediate FATIGUE Verified 05/02/22 10:55 SODIUM TETRADECYL SULFATE Allergy Uncoded 04/08/22 15:19 clorine AdvReac Mild Uncoded 04/08/22 15:19 Review of Systems Review of Systems Narrative: 14 systems reviewed and negative aside from what is noted in HPI Exam Vital Signs (past 8 hours): - 05/28/22 00:37 05/28/22 00:46 05/28/22 01:00 Temperature 98.0 F Pulse Rate 87 86 86 Respiratory Rate 22 34 H 32 H Blood Pressure 134/116 H Pulse Oximetry 96 96 95 Oxygen Delivery Method Nasal Cannula Nasal Cannula Oxygen Flow Rate 2 2 05/28/22 01:15 05/28/22 01:15 05/28/22 01:30 Temperature Pulse Rate 89 80 Respiratory Rate 38 H 28 H Blood Pressure 232/104 H Pulse Oximetry 90 L 89 L Oxygen Delivery Method Oxygen Flow Rate 05/28/22 01:31 05/28/22 01:31 05/28/22 02:00 Temperature Pulse Rate 79 74 Respiratory Rate 28 H 25 H Blood Pressure 197/81 H Pulse Oximetry 89 L 87 L Oxygen Delivery Method Oxygen Flow Rate 05/28/22 02:01 05/28/22 02:01 05/28/22 02:45 Temperature Pulse Rate 75 93 H Respiratory Rate 26 H 27 H Blood Pressure 159/70 H Pulse Oximetry 87 L 84 L Oxygen Delivery Method Oxygen Flow Rate 05/28/22 03:00 05/28/22 03:30 05/28/22 03:30 Temperature Pulse Rate 74 73 Respiratory Rate 28 H 20 22 Blood Pressure 121/69 Pulse Oximetry 97 95 95 Oxygen Delivery Method Nasal Cannula Oxygen Flow Rate 2 05/28/22 04:00 05/28/22 04:01 05/28/22 04:01 Temperature Pulse Rate 78 77 Respiratory Rate 27 H 24 Blood Pressure 109/84 Pulse Oximetry 93 93 Oxygen Delivery Method Oxygen Flow Rate 05/28/22 04:30 05/28/22 05:00 05/28/22 05:01 Temperature Pulse Rate 76 82 81 Respiratory Rate 28 H 41 H 34 H Blood Pressure Pulse Oximetry 97 98 98 Oxygen Delivery Method Oxygen Flow Rate 05/28/22 05:01 05/28/22 05:30 Temperature Pulse Rate 72 Respiratory Rate 21 Blood Pressure 168/79 H Pulse Oximetry 97 Oxygen Delivery Method Oxygen Flow Rate Oxygen Delivery Method Nasal Cannula Oxygen Flow Rate 2 Narrative Exam Narrative: GEN: mild respiratory distress HEENT: moist mucous membranes, PERRL NECK: trachea midline, no JVD PULM: clear bilaterally, no wheezes, rhonchi, rales CV: regular rate and rhythm, no murmurs ABD: soft, nontender, nondistended, no organomegaly EXT: warm and well perfused with no edema NEURO: awake, alert, oriented, no focal deficits Objective Labs Result Diagrams: 05/28/22 01:05 05/28/22 01:05 Labs: Laboratory Results - last 24 hr 05/28/22 05/28/22 05/28/22 00:55 01:05 01:05 WBC 14.3 H RBC 4.38 Hgb 12.7 Hct 38.5 MCV 87.9 MCH 29.0 MCHC 33.1 RDW 14.2 Plt Count 180 Neut % (Auto) 87.0 H Lymph % (Auto) 8.2 L [place] % (Auto) 4.5 Eos % (Auto) 0.2 L Baso % (Auto) 0.1 Neut # (Auto) 70468 H Lymph # (Auto) 1200 [place] # (Auto) 600 Eos # (Auto) 0 Baso # (Auto) 0 D-Dimer Sodium 137 Potassium 3.9 Chloride 98 Carbon Dioxide 33 H BUN 11 Creatinine 0.67 Estimated GFR > 60 BUN/Creatinine Ratio 16.4 Glucose 202 H Lactate Calcium 8.7 Total Bilirubin 1.3 AST 33 ALT 32 Alkaline Phosphatase 74 Total Creatine Kinase 51 CK-MB (CK-2) TNP CK-MB (CK-2) Rel Index TNP Troponin I 0.037 H NT-Pro-B Natriuret Pep 889 H Total Protein 7.7 Albumin 3.9 Globulin 3.8 Albumin/Globulin Ratio 1.0 Lipase 34 Procalcitonin 0.21 SARS-CoV-2 (PCR) Negative Influenza A (RT-PCR) Flu a negative Influenza B (RT-PCR) Flu b negative RSV (PCR) Negative 05/28/22 05/28/22 05/28/22 01:05 01:05 03:02 WBC RBC Hgb Hct MCV MCH MCHC RDW Plt Count Neut % (Auto) Lymph % (Auto) [place] % (Auto) Eos % (Auto) Baso % (Auto) Neut # (Auto) Lymph # (Auto) [place] # (Auto) Eos # (Auto) Baso # (Auto) D-Dimer 81314 H Sodium Potassium Chloride Carbon Dioxide BUN Creatinine Estimated GFR BUN/Creatinine Ratio Glucose Lactate 1.1 Calcium Total Bilirubin AST ALT Alkaline Phosphatase Total Creatine Kinase 54 CK-MB (CK-2) TNP CK-MB (CK-2) Rel Index TNP Troponin I 0.049 H NT-Pro-B Natriuret Pep Total Protein Albumin Globulin Albumin/Globulin Ratio Lipase Procalcitonin SARS-CoV-2 (PCR) Influenza A (RT-PCR) Influenza B (RT-PCR) RSV (PCR) Assessment & Plan Assessment & Plan narrative: 1. Acute hypoxemic respiratory failure -reportedly had fever 102.8 with EMS, elevated white count, hypoxia -imaging with possible pneumonia vs atelectasis -ordered for IV antibiotics for presumed pneumonia -d-dimer greater than 20,000 so CTA showed no central PE, small arteries evaluation limited by motion 2. Fall -unclear mechanism for fall, reportedly no head strike -as she appears somewhat confused to me, and has cva history will order CT head -PT consult 3. Acute metabolic encephalopathy vs cognitive impairment -patient appears confused upon some questions -could be from cognitive impairment, or encephalopathy from infection, hypertension, less likely cva -CT head ordered -consider MRI pending patient's clinical course with planned treatments -blood sugar initially in 200s on bmp, check fingerstick achs 4. Elevated troponin -suspect secondary to demand from infection or high blood pressure -initial trop 0.037 then rising to 0.049, continue to trend -continue aspirin, statin, also ordered plavix -no indication for anticoagulation currently -if rises significantly will start heparin and in that case further testing for cardiac workup 4. Hypertension -blood pressure very labile initially in ED -put back on home medications and evaluate if confusion improves 5. Type 2 Diabetes on insulin -continue lantus 20U in AM -insulin sliding scale ordered 6. History of CVA -continue aspirin, statin -for now continue plavix, but it looks from records she should be on only single anti-platelet medication -given previous findings of high grade large vessel stenosis could consider lifelong dual anti-platelet can likely discuss with PCP about this CODE: Full Proxy: Keo Kat, life partner I have utilized all available resources to reconcile the patient's home medications Time Spent With Patient Critical Care time: I spent a total of [] minutes of critical care time on this patient's care today; this time is exclusive of procedural time.
[2022-05-28] MEDS: SODIUM CHLORIDE 0.9% 1,000 ML 125 ML IV (06:30)
--- NOTE | 2022-05-28 06:30 | PC.NURSE ---
no changes at this time
--- NOTE | 2022-05-28 07:24 | PC.NURSE ---
Report given to dayshift RN team - care relinquished at this time
--- NOTE | 2022-05-28 07:42 | DI.CT.S_ITS ---
PROCEDURE: CT HEAD/BRAIN WO CON INDICATIONS: fall, confused TECHNIQUE: Noncontrast 4.5 mm thick angled axial sections acquired from the foramen magnum to the vertex, with coronal and sagittal reformats. For radiation dose reduction, the following was used: automated exposure control, adjustment of mA and/or kV according to patient size. COMPARISON: None. FINDINGS: Image quality: Excellent. CSF spaces: Basal cisterns are patent. No extra-axial fluid collections. The ventricles are symmetric in size and shape. Brain: No intracranial bleeds or masses. There is cerebral volume loss for age, with resultant ventricular and sulcal prominence. There are periventricular and deep white matter chronic small vessel ischemic changes. Hypodensity is noted in the right parietal occipital lobe. There is intracranial internal carotid artery atherosclerosis. Skull and face: Calvarium and visualized facial bones appear intact, without suspicious lesions. Sinuses: Visualized sinuses and mastoids are clear. IMPRESSION: Hypodensity in the right parietal occipital lobe consistent prior ischemia. Areas of superimposed subacute ischemia cannot be definitively excluded and as clinically indicated, MRI may be obtained for further evaluation. Moderate atrophy and chronic microvascular ischemic changes. Dictated by: Ana Hyman M.D. on 05/28/2022 at 8:14 Approved by: Ana Hyman M.D. on 05/28/2022 at 8:20
--- NOTE | 2022-05-28 08:35 | DI.MRI.S_ITS ---
PROCEDURE: MR HEAD/BRAIN WO CON INDICATIONS: Abnormal head CT. Please evaluate for stroke, other reason for AMS TECHNIQUE: Non-contrast axial T1 spin echo, axial T2 fast spin echo, sagittal and axial FLAIR, coronal T2 fast spin echo, axial gradient echo, axial diffusion and ADC through the brain. COMPARISON: [facility], CT, CT HEAD/BRAIN WO CON, 05/28/2022, 7:40. FINDINGS: Image quality: This examination is limited by involuntary motion artifact. CSF spaces: Ventricles appear symmetric in size and shape. Basal cisterns are patent. No extra-axial fluid collections. Brain: Within the right OUTPATIENT SURGERY RN territory, there is abnormal signal seen, decreased T1 weighted signal and increased T2 weighted/FLAIR signal. There is a mild degree of abnormal diffusion-weighted signal seen medially, with decreased signal on the ADC map. On precontrast T1 weighted imaging, there are several gyri seen that demonstrate increased signal, as seen on series 10 images 9-12. There is minimal abnormal signal seen on the susceptibility sensitive sequence, as on series 9 images 10 through 12. No intracranial bleeds or mass effects. There is cerebral volume loss for age. There are periventricular and deep white matter chronic small vessel ischemic changes. Brainstem appears normal. No chronic ischemic insults. Normal intravascular flow voids are present. Skull and face: Calvarial bone marrow is normal in signal. Orbits are normal. There is a right lens replacement seen. Sinuses: Moderate fluid can be seen within the mastoid air cells on both sides. No significant paranasal sinus disease is seen. IMPRESSION: There is an infarction seen involving the right OUTPATIENT SURGERY RN territory. Associated laminar necrosis can be seen. Minimal petechial hemorrhage present within this infarction. Additional findings: Right lens replacement Dictated by: Eamon Sarah M.D. on 05/28/2022 at 14:19 Approved by: Eamon Sarah M.D. on 05/28/2022 at 14:25
[2022-05-28] MEDS: ALBUTEROL/IPRATROPIUM 3 ML AMPUL INH (08:47)
[2022-05-28 08:54] LABS: Add Manual Diff / Slide Review NO; Basophils Absolute Auto 100 /uL (0-100); Basophils Percent Auto 0.7 % (0-2); Eosinophils Absolute Auto 200 /uL (0-450); Eosinophils Percent Auto 1.5 % (2-4); Lymphocytes Absolute Auto 2100 /uL (1100-4500); Lymphocytes Percent Auto 14.8 % (25-40); Mean Corpuscular HGB Conc 32.5 % (30-36); Mean Corpuscular Hemoglobin 28.7 PG (26-34); Mean Corpuscular Volume 88.3 fL (80-100); Monocytes Absolute Auto 800 /uL (0-900); Monocytes Percent Auto 5.4 % (3-14); Neutrophils Absolute Auto 10900 /uL (1500-7000); Neutrophils Percent Auto 77.6 % (50-75); Platelet Count 198 X10^3/uL (150-400); Red Blood Cell Count 4.54 X10^6/uL (4.0-5.2); Red Cell Distribution Width 14.4 % (11.6-14.8); White Blood Cell Count 14.1 X10^3/uL (4.5-11.0)
[2022-05-28] MEDS: LORazepam 2 MG/ML INJ 0.5 MG IV ×2 (08:55→14:24)
--- NOTE | 2022-05-28 08:56 | PC.NURSE ---
received pt. tachy. hr 130's. crackles, rales. heexes in lung . pt is coughing, confused. pulled out her iv in her right hand. BP is [address] Pedraza at bedside. ativan 0.5 mg given and a breathing treatment given to pt..
[2022-05-28 08:58] LABS: Appearance Urine UA SL CLOUDY; Bilirubin Urine UA NEGATIVE (NEGATIVE); Color Urine UA YELLOW; Glucose Urine UA TRACE g/dL (Negative); Ketones Urine UA NEGATIVE (NEGATIVE); Leukocyte Esterase Urine UA 1+ (NEGATIVE); Nitrite Urine UA NEGATIVE (Negative); Occult Blood Urine UA 3+ (Negative); Protein Urine UA 2+ (Negative); Urobilinogen Urine UA 0.2 E.U./dL (0.2)
[2022-05-28 09:02] LABS: Bacteria Urine None Seen; Culture Indicated Urine Specimen Cultured; RBC Urine 30-100/HPF (0-5/HPF); Squamous Epithelial Cell Urine 1-5 /HPF (0-5/HPF); WBC Urine 5-10/HPF (0-5/HPF)
[2022-05-28 09:04] LABS: BUN Creatinine Ratio 17.7 (6-22); Blood Urea Nitrogen 11 mg/dL (7-17); Calcium 8.9 mg/dL (8.4-10.2); Carbon Dioxide 30 mmol/L (22-32); Chloride 97 mmol/L (98-107); Estimated Glomerular Filt Rate > 60 mL/min (>60); Glucose 170 mg/dL (80-110); HEMOLYSIS < 15 (0-50); Potassium 3.7 mmol/L (3.4-5.1); Sodium 139 mmol/L (137-145)
[2022-05-28 09:05] LABS: Magnesium 1.9 mg/dL (1.6-2.3)
[2022-05-28 09:14] LABS: Troponin I 0.042 ng/mL (0.01-0.034)
--- NOTE | 2022-05-28 10:03 | PC.NURSE ---
purewick placed. to suction. hilario urine
[2022-05-28] MEDS: ENOXAPARIN 40 MG/0.4 ML SYRINGE SUBCUT (10:33)
[2022-05-28] MEDS: ASPIRIN EC 81 MG TABLET PO (10:33)
[2022-05-28] MEDS: CLOPIDOGREL 75 MG TABLET PO (10:33)
--- NOTE | 2022-05-28 10:44 | PT-IP ANOTE ---
checked on pt in ER and pt is asleep. nurse in room and stated that pt was restless and BP was up and was given ativan and is not appropriate for PT at this time. will f/u in the afternoon.
[2022-05-28] MEDS: carvediloL 12.5 MG TABLET 25 MG PO ×2 (12:05→22:40)
[2022-05-28] MEDS: LOSARTAN 50 MG TABLET PO (12:07)
[2022-05-28] MEDS: guaiFENesin ER 600 MG TAB PO ×2 (12:07→22:26)
--- NOTE | 2022-05-28 15:11 | PT.IIE ---
Surgical History (Last Reviewed 05/28/22 @ 06:14 by Az Red MD) Anesthesia H/O total hip arthroplasty Status post hernia repair Medical History (Last Reviewed 05/28/22 @ 06:14 by Az Red MD) Bilateral primary osteoarthritis of hip Cerumen impaction Hearing loss Hyperlipidemia Hypertension Intercostal muscle strain Scoliosis Urinary tract disease (~2020) Vision changes Physical Therapy Inpatient Evaluation/Re-Eval M1 PT/OT-IP Prior Functional Status Start: 05/28/22 16:06 Freq: NEEDED Status: Active Protocol: Document 05/28/22 15:11 AB (Rec: 05/28/22 16:24 AB [email or web address]) Medical Review Prior Functional Status Medical History Reviewed Yes Communication able to answer questions but pt is sleepy Mobility and Gait pt stated that she is modified independent with bed mobility, transfers and ambulation using a SPC for short distance/indoor ambulation; uses a manual w/c for outdoor/long distance mobility and pt's partner Keo assists pt with w/c Activities of Daily Living and IADL's pt stated that Keo assists her with getting in/out of the tub shower Social History Household Members significant other Living Arrangements Apartment/Condo Number of Stairs To Enter/Railing? lives on a 2nd level apartment : has 3 steps B rails to enter the building and Keo( significant other) uses a w/c to wheel her into their apartment Home Environment High Toilet,Tub/Shower Home Equipment Straight Cane,Manual Wheelchair,Shower Seat with Backrest,Hand Held Shower Additional Social History Comment Pt lives with her significant other Keo and can assists her at home M2 PT-IP Current Condition Start: 05/28/22 16:06 Freq: NEEDED Status: Active Protocol: Document 05/28/22 15:11 AB (Rec: 05/28/22 16:24 AB [email or web address]) Physical Therapy Current Condition Current Condition Evaluation Date 05/28/22 Treatment Diagnosis s/p fall; respiratory failure; difficulty in walking Onset Date 05/28/22 M3 PT-IP Subjective Start: 05/28/22 16:06 Freq: NEEDED Status: Active Protocol: Document 05/28/22 15:11 AB (Rec: 05/28/22 16:24 AB [email or web address]) Subjective Physical Therapy Visit Type Type Initial Evaluation Visit Start Time 15:11 Visit Stop Time 15:55 Total Visit Minutes 44 Number of [employer] Visits 0 Therapy Pain Assessment Pain When Pain Assessed During Mobility Location Back Scale Used pain scale not stated Pain Management Techniques Distraction,Modification of Treatment,Re-positioning, Timing of Activity with Medications M4 PT-IP Mobility and Gait Start: 05/28/22 16:06 Freq: NEEDED Status: Active Protocol: Document 05/28/22 15:11 AB (Rec: 05/28/22 16:24 AB [email or web address]) PT-Bed Mobility Assessment Supine to Sit Supine to Sit Maximum Assistance,1 Person Assistance,2 Person Assistance ,Head of Bed Elevated Sit to Supine Sit to Supine Maximum Assistance,1 Person Assistance,2 Person Assistance Scooting Scooting to Edge of Bed Maximum Assistance PT-Transfer Assessment Sit to and From Stand Sit to and from Stand Moderate Assistance,1 Person Assistance,Use of Upper Extremities Equipment Transfer Assistive Device Bed Rail,Front Wheeled Walker Orthotic/Prosthetic Devices or Brace: No Comments Mobility Comments pt able to follow directions but needs repetitions and still slightly sleepy and needs cues to stay awake. completed supine to sit max A x 1-2 and max cues. able to sit on Eob CGA. completed sit to stand mod A and cues and ambulated using FWW ~ 5 ft mod A. max cues provided for safety and directions. completed sit to supine max A and max cues. max A x 1-2 for positioning in bed. call light and table placed within reach . left pt with significant other in room. O2 sat with 3L/min O2 : maintained at : 94-96% Gait Assessment Gait Gait Assistance Required: Moderate Assistance,1 Person Assist Distance (Feet) 5 Assistive Devices Assistive Device Gait Belt,Front Wheeled Walker Orthotic/Prosthetic Devices or Brace: No Gait Deviations General Gait Pattern Decreased Stride Length, Decreased Feet Clearance,Step- to Gait Factors Limiting Gait Function Factors Limiting Gait Function Decreased Activity Tolerance, Decreased Strength,Difficulty Following Directions,Pain,Poor Balance,Poor Safety Awareness ,Respiratory Distress PT-Balance Assessment Sitting Balance and Reactions Static Sitting Balance Ability Good Dynamic Sitting Balance Ability Fair Standing Balance and Reactions Static Standing Balance Ability Fair Dynamic Standing Balance Ability Poor Device Used FWW M5 PT-IP Objective Assessments Start: 05/28/22 16:06 Freq: NEEDED Status: Active Protocol: Document 05/28/22 15:11 AB (Rec: 05/28/22 16:24 AB [email or web address]) Orientation Orientation/Cognition Level of Alertness Confusional State Orientation Name Language Function Ability Hard of Hearing Safety Awareness Decreased Safety Awareness Memory Description Short Term Impaired Gross Range of Motion Lower Extremity ROM Assessment Within Functional Limits Strength Lower Extremity Strength Assessment Bilaterally Impaired Hip 3+/5 Knee 4-/5 Sensation Assessment Sensation Gross Sensation WNL Muscle Tone Muscle Tone WNL Yes M6 PT-IP Treatment Start: 05/28/22 16:06 Freq: NEEDED Status: Active Protocol: Document 05/28/22 15:11 AB (Rec: 05/28/22 16:24 AB [email or web address]) Physical Therapy Treatment Education Education Provided Safety M7 PT-IP Assessment and Plan Start: 05/28/22 16:06 Freq: NEEDED Status: Active Protocol: Document 05/28/22 15:11 AB (Rec: 05/28/22 16:24 AB [email or web address]) PT Summary Assessment and Plan Potential Rehabilitation Potential Fair Status of Condition at Evaluation Evolving Summary Impairments Pain,ROM,Strength,Balance, Coordination,Sensation,Tone, Cognition,Bed Mobility, Transfers,Gait,Activity Tolerance Assessment Summary pt requiring max A for bed mobility, mod A for ambulation using FWW. pt lives with her significant other Keo and plans to go home with assist. caregiver training will be conducted when appropriate and also have to complete stair climbing training prior to d/c . Pt may require use of FWW upon d/c and will need a FWW but will continue to assess progress to improv overall strength , mobility independence. Goals Bed Mobility Goal Minimal Assistance Transfer Goal Minimal Assistance,Front Wheeled Walker Gait Goal Minimal Assistance,Front Wheel Walker Gait Distance 50 Other Goals improve bed mobility, transfers, ambulation using FWW/SPC 100 ft SBA up/down 3 steps B rails SBA Days to Meet Goals 10 Frequency of Treatment Frequency Of Treatment Once a Day Treatment Plan Physical Therapy Treatment Plan Bed Mobility Training,Transfer Training,Gait Training, Therapeutic Exercise,Balance Retraining,Post Op Education, Discharge Planning,Hot or Cold Pack,Neuromuscular Re-ed, Coordination Retraining,Manual Therapy Precautions Other Precautions falls, O2 sat Recommendations To Nursing Amount of Assist Needed 1 Person Assist Discharge Recommendations PT Discharge Recommendations Home with 15/12 Assist Available,Home Health Equipment Needed for Home Before FWW if not safe with SPC Discharge Transportation Needs at Discharge Private Vehicle,Wheelchair/ Cabulance
--- NOTE | 2022-05-28 16:11 | DI.CT.S_ITS ---
PROCEDURE: CT ANGIO HEAD AND NECK INDICATIONS: Right occipital infarct TECHNIQUE: After the administration of intravenous contrast, 1 mm thick sections acquired from the aortic arch through the [place] of Rucker. Post-contrast 4.5 mm thick sections then re-acquired from the foramen magnum to the vertex. 3-dimensional hrcuxxi-cmsntwmre-gysifovsxj (MIP) and/or volume rendering reformats were acquired of the central intracranial vasculature and neck separately. For radiation dose reduction, the following was used: automated exposure control, adjustment of mA and/or kV according to patient size. COMPARISON: [facility], MR, MR HEAD/BRAIN WO CON, 05/28/2022, 14:44. FINDINGS: Image quality: Excellent. BRAIN: HEAD CT ANGIOGRAPHY: Anterior circulation: Intracranial internal carotid arteries are normal in size and flow. The flow within the paired anterior cerebral arteries is normal and symmetric. The flow within the middle cerebral arteries is normal and symmetric. The anterior communicating artery is seen. No aneurysms are seen. Posterior circulation: There is an abrupt cut off of the intradural right vertebral artery, consistent with thromboembolic disease. Left vertebral artery is patent, there is a normal basilar artery which terminates in the superior cerebellar arteries. Hypoplasia/aplasia of the bilateral P1 DEVELOPMENT COACH noted. The right P2 DEVELOPMENT COACH is stenotic, but the distal bilateral DEVELOPMENT COACH are patent. No aneurysms are seen. Postcontrast CT of the brain shows increasing edema the right occipital lobe with blurring of the pierce-white junction, consistent with acute infarct NECK CT ANGIOGRAPHY: Carotid system: The great vessels demonstrate a conventional anatomy as they arise from the aortic arch. Focal atherosclerotic plaque in the mid left common carotid results in approximately 40% stenosis The common carotid arteries demonstrate normal caliber and courses. Atherosclerotic plaque in both proximal ICA noted without significant stenosis. Surgical clips adjacent to the left proximal ICA probably reflects prior endarterectomy. The internal carotid arteries demonstrate normal calibers and courses. 75% atherosclerotic stenosis noted in the proximal left subclavian artery Posterior circulation: The origins of the vertebral arteries both appear widely patent. The more superior extracranial portions of both vertebral arteries also demonstrate normal courses and calibers. They join to form a normal appearing basilar artery. Soft tissues: Visualized neck soft tissues demonstrate no suspicious abnormalities. Emphysematous changes noted in the bilateral lung apices Bones: Multilevel degenerative disc disease and arthropathy present in the cervical spine associated with moderate to severe central stenosis at C5-6 IMPRESSION: Evolving right occipital infarct without CT evidence of hemorrhagic conversion. Occlusion of the right intradural vertebral artery, probably acute. Significant stenosis right P2 DEVELOPMENT COACH with distal DEVELOPMENT COACH patency. Probable proximal left ICA endarterectomy. Both ICA widely patent. Any quantitative measurements of stenosis were performed using NASCET criteria. Approved by: Alan Wolf M.D. on 05/28/2022 at 16:31
[2022-05-28] MEDS: ATORVASTATIN 20 MG TABLET 80 MG PO (22:26)
[2022-05-28] MEDS: GABAPENTIN 100 MG CAPSULE 200 MG PO (22:26)
[2022-05-28] MEDS: HYDRALAZINE 25 MG TABLET 50 MG PO (22:47)
[2022-05-29] VITALS (19 sets, daily range): BP systolic 114–146; BP diastolic 53–78; PULSE 69–89; RESP 16–21; TEMP 36.3–36.9; O2SAT 93–99
[2022-05-29] MEDS: cefTRIAXone 1,000 MG in SODIUM CHLORIDE 0.9% 100 ML 200 MG IV (06:21)
[2022-05-29] MEDS: HYDRALAZINE 25 MG TABLET 50 MG PO ×3 (06:22→21:07)
[2022-05-29] MEDS: AZITHROMYCIN 250 MG TABLET 500 MG PO (06:22)
[2022-05-29 06:40] LABS: Add Manual Diff / Slide Review NO; Basophils Absolute Auto 100 /uL (0-100); Basophils Percent Auto 0.5 % (0-2); Eosinophils Absolute Auto 200 /uL (0-450); Eosinophils Percent Auto 2.2 % (2-4); Hematocrit 32.3 % (36-46); Lymphocytes Absolute Auto 1700 /uL (1100-4500); Lymphocytes Percent Auto 16.8 % (25-40); Mean Corpuscular Hemoglobin 29.8 PG (26-34); Mean Corpuscular Volume 87.9 fL (80-100); Monocytes Absolute Auto 700 /uL (0-900); Monocytes Percent Auto 6.9 % (3-14); Neutrophils Absolute Auto 7400 /uL (1500-7000); Neutrophils Percent Auto 73.6 % (50-75); Platelet Count 147 X10^3/uL (150-400); Red Blood Cell Count 3.68 X10^6/uL (4.0-5.2); Red Cell Distribution Width 14.2 % (11.6-14.8)
[2022-05-29] MEDS: BENZONATATE 100 MG CAPSULE PO (06:44)
[2022-05-29 06:51] LABS: BUN Creatinine Ratio 18.5 (6-22); Blood Urea Nitrogen 17 mg/dL (7-17); Calcium 8.3 mg/dL (8.4-10.2); Carbon Dioxide 33 mmol/L (22-32); Chloride 97 mmol/L (98-107); Estimated Glomerular Filt Rate > 60 mL/min (>60); Glucose 133 mg/dL (80-110); HEMOLYSIS < 15 (0-50); Potassium 3.7 mmol/L (3.4-5.1); Sodium 137 mmol/L (137-145)
--- NOTE | 2022-05-29 07:31 | PM.PN.1 ---
Subjective Subjective Date Patient Seen: 05/29/22 Interval history: Patient feeling slightly better today. Though still has cruddy wet cough. Requesting laxatives for constipation. Exam Vital Signs (past 8 hours): - 05/29/22 00:05 05/29/22 00:57 05/28/22 23:45 Temperature 97.4 F L Pulse Rate 69 69 Respiratory Rate 20 Blood Pressure 128/68 128/68 Pulse Oximetry 97 Oxygen Delivery Method Nasal Cannula Oxygen Flow Rate 3 05/29/22 02:00 05/29/22 06:00 05/29/22 06:22 Temperature 97.7 F Pulse Rate 89 89 Respiratory Rate 19 Blood Pressure 145/78 H 145/78 H Pulse Oximetry 96 97 Oxygen Delivery Method Room Air Oxygen Flow Rate 3 3 05/29/22 06:00 Temperature Pulse Rate Respiratory Rate Blood Pressure Pulse Oximetry 94 Oxygen Delivery Method Nasal Cannula Oxygen Flow Rate 3 Oxygen Delivery Method Nasal Cannula Oxygen Flow Rate 3 Narrative Exam Narrative: GEN: NAD, appears fatigued HEENT: moist mucous membranes, PERRL NECK: trachea midline, no JVD PULM: clear bilaterally, no wheezes, rhonchi, rales CV: regular rate and rhythm, no murmurs ABD: soft, nontender, nondistended, no organomegaly EXT: warm and well perfused with no edema NEURO: awake, alert, oriented, no focal deficits Objective Labs Result Diagrams: 05/29/22 06:16 05/29/22 06:16 Labs: Laboratory Results - last 24 hr 05/28/22 05/28/22 05/28/22 08:35 08:35 08:35 WBC 14.1 H RBC 4.54 Hgb 13.0 Hct 40.0 MCV 88.3 MCH 28.7 MCHC 32.5 RDW 14.4 Plt Count 198 Neut % (Auto) 77.6 H Lymph % (Auto) 14.8 L [place] % (Auto) 5.4 Eos % (Auto) 1.5 L Baso % (Auto) 0.7 Neut # (Auto) 53587 H Lymph # (Auto) 2100 [place] # (Auto) 800 Eos # (Auto) 200 Baso # (Auto) 100 Sodium 139 Potassium 3.7 Chloride 97 L Carbon Dioxide 30 BUN 11 Creatinine 0.62 Estimated GFR > 60 BUN/Creatinine Ratio 17.7 Glucose 170 H Calcium 8.9 Magnesium 1.9 Troponin I Urine Color Urine Appearance Urine pH Ur Specific [place] Urine Protein Urine Glucose (UA) Urine Ketones Urine Occult Blood Urine Nitrate Urine Bilirubin Urine Urobilinogen Ur Leukocyte Esterase Urine RBC Urine WBC Ur Squamous Epith Cells Urine Bacteria Ur Culture Indicated? 05/28/22 05/28/22 05/29/22 08:35 08:40 06:16 WBC 10.0 RBC 3.68 L Hgb 11.0 L Hct 32.3 L MCV 87.9 MCH 29.8 MCHC 34.0 RDW 14.2 Plt Count 147 L Neut % (Auto) 73.6 Lymph % (Auto) 16.8 L [place] % (Auto) 6.9 Eos % (Auto) 2.2 Baso % (Auto) 0.5 Neut # (Auto) 7400 H Lymph # (Auto) 1700 [place] # (Auto) 700 Eos # (Auto) 200 Baso # (Auto) 100 Sodium Potassium Chloride Carbon Dioxide BUN Creatinine Estimated GFR BUN/Creatinine Ratio Glucose Calcium Magnesium Troponin I 0.042 H Urine Color Yellow Urine Appearance Sl cloudy Urine pH 7.0 Ur Specific [place] 1.010 Urine Protein 2+ H Urine Glucose (UA) Trace H Urine Ketones Negative Urine Occult Blood 3+ H Urine Nitrate Negative Urine Bilirubin Negative Urine Urobilinogen 0.2 Ur Leukocyte Esterase 1+ H Urine RBC 30-100/hpf H Urine WBC 5-10/hpf H Ur Squamous Epith Cells 1-5 /hpf Urine Bacteria None seen Ur Culture Indicated? Specimen cultured 05/29/22 06:16 WBC RBC Hgb Hct MCV MCH MCHC RDW Plt Count Neut % (Auto) Lymph % (Auto) [place] % (Auto) Eos % (Auto) Baso % (Auto) Neut # (Auto) Lymph # (Auto) [place] # (Auto) Eos # (Auto) Baso # (Auto) Sodium 137 Potassium 3.7 Chloride 97 L Carbon Dioxide 33 H BUN 17 Creatinine 0.92 Estimated GFR > 60 BUN/Creatinine Ratio 18.5 Glucose 133 H Calcium 8.3 L Magnesium Troponin I Urine Color Urine Appearance Urine pH Ur Specific [place] Urine Protein Urine Glucose (UA) Urine Ketones Urine Occult Blood Urine Nitrate Urine Bilirubin Urine Urobilinogen Ur Leukocyte Esterase Urine RBC Urine WBC Ur Squamous Epith Cells Urine Bacteria Ur Culture Indicated? [facility] Medical History Bilateral primary osteoarthritis of hip Cerumen impaction Hearing loss Hyperlipidemia Hypertension Intercostal muscle strain Scoliosis Urinary tract disease (~2020) Vision changes Surgical History Anesthesia H/O total hip arthroplasty Status post hernia repair Family History Brother Suicide Mother Old age Father MVA (motor vehicle accident) Social History household members: significant other Smoking Status: Former smoker Assessment & Plan Assessment & Plan narrative: 1. Acute hypoxemic respiratory failure, improving -reportedly had fever 102.8 with EMS, elevated white count, hypoxia -imaging with possible pneumonia vs atelectasis -ordered for IV antibiotics for presumed pneumonia -d-dimer greater than 20,000 and CTA showed no central PE, small arteries evaluation limited by motion -wean O2 as able, currently 2-3L 2. Fall -unclear mechanism for fall, reportedly no head strike -PT eval 3. Acute metabolic encephalopathy vs cognitive impairment, resolved -patient appears confused intially in ED -could be from cognitive impairment, or encephalopathy from infection, hypertension, less likely cva -CT head ordered with discussion below -improved after resolution of hypertensive urgency, possibly related to BP -now resolved and back at baseline 4. Elevated troponin -suspect secondary to demand from infection or high blood pressure -initial trop 0.037 then rising to 0.049, then 0.042 -continue aspirin, statin, also ordered plavix 4. Hypertension, improving -blood pressure very labile initially in ED up to 211 systolic -put back on home medications and now BP in good range 5. Type 2 Diabetes on insulin -continue lantus 20U in AM -insulin sliding scale ordered 6. History of CVA -continue aspirin, statin -CT head ordered due to AMS and showed old stroke and cannot rule out acute infarct, rec MRI brain -MRI brain on 05/28 showed old infarction of right MECHANICAL ENGINEERING SPECIALIST with associated laminar necrosis. CTA head showed patent carotids, with possible acute right vertebral artery occlusion. Spoke with Dr. Aguilar neurology at given findings and they did not think occlusion was acute. Recommended continuing aspirin, plavix and statin CODE: Full Proxy: Keo Kat, life partner I have utilized all available resources to reconcile the patient's home medications Time Spent With Patient Critical Care time: I spent a total of [] minutes of critical care time on this patient's care today; this time is exclusive of procedural time. Quality VTE Deep Vein Thrombosis/Pulmonary Embolism Present on Admission: No
[2022-05-29] MEDS: ASPIRIN EC 81 MG TABLET PO (08:46)
[2022-05-29] MEDS: guaiFENesin ER 600 MG TAB PO ×2 (08:46→21:05)
[2022-05-29] MEDS: carvediloL 12.5 MG TABLET 25 MG PO ×2 (08:46→21:03)
[2022-05-29] MEDS: CLOPIDOGREL 75 MG TABLET PO (08:46)
[2022-05-29] MEDS: INSULIN GLARGINE 100 UNIT/ML 3ML PEN 20 UNIT SUBCUT (08:55)
--- NOTE | 2022-05-29 11:39 | PT.IPTN ---
Current Diagnoses Acute respiratory failure with hypoxia (05/28/22) Physical Therapy Treatment Note M2 PT-IP Current Condition Start: 05/28/22 16:06 Freq: NEEDED Status: Active Protocol: Document 05/29/22 11:16 SP (Rec: 05/29/22 15:35 SP [id number]) Physical Therapy Current Condition Current Condition Evaluation Date 05/28/22 Treatment Diagnosis s/p fall; respiratory failure; difficulty in walking Onset Date 05/28/22 M3 PT-IP Subjective Start: 05/28/22 16:06 Freq: NEEDED Status: Active Protocol: Document 05/29/22 11:16 SP (Rec: 05/29/22 15:35 SP [id number]) Subjective Physical Therapy Visit Type Type Treatment Note Visit Start Time 11:16 Visit Stop Time 11:39 Total Visit Minutes 23 Notes Vitals: supine: 143/67 HR 81 SaO2 97% on 2.5 L *SO stated breath similar at home but more efforted and didn't have Supplimental O2 at home. With mobility: SaO2 997% on 2. 5 L ACADEMIC ASSISTANT provided 2nd person assist required. Number of CARDROOM MANAGER Visits 1 Physical Therapy Visit Comments Patient Comments Pt very lathargic but willing with encouragement to mobililze seated at EOB. Therapy Pain Assessment Pain When Pain Assessed During Mobility Location Back Scale Used pain scale not stated Description With Movement Pain Behaviors Facial Grimacing Pain Management Techniques Distraction,Modification of Treatment,Re-positioning M4 PT-IP Mobility and Gait Start: 05/28/22 16:06 Freq: NEEDED Status: Active Protocol: Document 05/29/22 11:16 SP (Rec: 05/29/22 15:35 SP [id number]) PT-Bed Mobility Assessment Supine to Sit Supine to Sit Maximum Assistance,2 Person Assistance,Head of Bed Elevated Sit to Supine Sit to Supine Maximum Assistance,Total Assistance,2 Person Assistance Scooting Scooting to Edge of Bed Maximum Assistance Scooting Up and Down in Bed Dependent PT-Transfer Assessment Comments Mobility Comments Pt very lethargic this tx. With encouragement and ed for importance of mobility. supine >sit HOB elevated 70 deg Heavy Max A x2 for trunk righting, self initiating then Min LEs to EOB, Max A support trunk stability seated with hand over hand redirection BUE support on bed and scoot to EOB via transfer pad Max A x2. Pt max cues for upright posture Min/Mod A x1 up to 1.5 min then requested I can't do this anymore. Max/Total A x2 sit>supine, dependent x2 scoot up in bed, assisted Min A for LR L and pillow behind her back for stability comfort , slight HOB elevated for comfort and breath, bed alarmed and call light with ed in reach under R hand, all needs in reach, SO in room when left. Gait Assessment Comments Gait Comments Unable to come to standing, no progression in gait this tx. Stair Climbing Assessment Comments Stair Climbing Comments Pt has 2 steps and B HR to enter home, will need to assess for safe DC when able. PT-Balance Assessment Sitting Balance and Reactions Static Sitting Balance Ability Poor Dynamic Sitting Balance Ability Poor Standing Balance and Reactions Device Used unable M5 PT-IP Objective Assessments Start: 05/28/22 16:06 Freq: NEEDED Status: Active Protocol: Document 05/28/22 15:11 AB (Rec: 05/28/22 16:24 AB [id number]) Orientation Orientation/Cognition Level of Alertness Confusional State Orientation Name Language Function Ability Hard of Hearing Safety Awareness Decreased Safety Awareness Memory Description Short Term Impaired Gross Range of Motion Lower Extremity ROM Assessment Within Functional Limits Strength Lower Extremity Strength Assessment Bilaterally Impaired Hip 3+/5 Knee 4-/5 Sensation Assessment Sensation Gross Sensation WNL Muscle Tone Muscle Tone WNL Yes M6 PT-IP Treatment Start: 05/28/22 16:06 Freq: NEEDED Status: Active Protocol: Document 05/29/22 11:16 SP (Rec: 05/29/22 15:35 SP [id number]) Physical Therapy Treatment Education Education Provided Safety M7 PT-IP Assessment and Plan Start: 05/28/22 16:06 Freq: NEEDED Status: Active Protocol: Document 05/29/22 11:16 SP (Rec: 05/29/22 15:35 SP [id number]) PT Summary Assessment and Plan Potential Rehabilitation Potential Fair Status of Condition at Evaluation Evolving Summary Impairments Pain,ROM,Strength,Balance, Coordination,Sensation,Tone, Cognition,Bed Mobility, Transfers,Gait,Activity Tolerance Progress Towards Goals Slow Progress due to Pain,Slow Progress due to Activity Tolerance Assessment Summary Pt required increased suppport heavy Max A x2 elevated bed mob sup>sit, min/mod sit EOB support at trunk 1.5 min, Max/ Total x2 sit>supine, dependent scoot up in bed. Pt will need SNF to progress strength for functional mobility. Will continue to assess progress. Goals Bed Mobility Goal Minimal Assistance Transfer Goal Minimal Assistance,Front Wheeled Walker Gait Goal Minimal Assistance,Front Wheel Walker Gait Distance 50 Other Goals improve bed mobility, transfers, ambulation using FWW/SPC 100 ft SBA up/down 3 steps B rails SBA Days to Meet Goals 10 Frequency of Treatment Frequency Of Treatment Once a Day Treatment Plan Physical Therapy Treatment Plan Bed Mobility Training,Transfer Training,Gait Training, Therapeutic Exercise,Balance Retraining,Post Op Education, Discharge Planning,Hot or Cold Pack,Neuromuscular Re-ed, Coordination Retraining,Manual Therapy Other Recommendations and Next Treatment bed mob, sitting EOB tolerance Focus , STS w/ FWW tolerance if able , SPT w/ FWW if safe. Precautions Other Precautions falls, O2 sat Recommendations To Nursing Amount of Assist Needed 3 or More Person Assist, Mechanical Lift Discharge Recommendations PT Discharge Recommendations SNF Rehab Equipment Needed for Home Before FWW if safe to DC home Discharge Transportation Needs at Discharge Wheelchair/Cabulance,Stretcher /Ambulance
--- NOTE | 2022-05-29 13:52 | CM.DANOTE ---
Initial DCP Assessment Note Pt is a 81yo female, resident of [facility], presents after fall at home, flown off [place] because partner concerned about SOB, in transit fever of 102 and O2 sats in the 80s. Patient admitted inpatient for management of pneumonia. PCP: Lowell Weathers Payer: FAREED/ELIZABETH Reviewed chart, pt discussed w/ PT; patient requires assist at baseline from partner Keo. Keo assists with bathing and operating patient's manual w/c when patient leaves her home. Today, patient very weak, sleepy, and requiring max assist for bed mobility, mod assist for ambulation using FWW, PT recommendation is SNF Patient and SO hopeful patient can return home. Attempted bedside assessment x2 and patient sleeping soundly. Placed call to SO Keo and LM requesting CB to discuss PT dispo recommendations and review dispo options. CM team will plan to follow closely for coordination of DCP. Home w/ SO, likely [facility] vs SNF (?) CATHI Delgado Discharge Planning/Care Management CM Discharge Assessment Start: 05/29/22 13:42 Freq: Status: Active Protocol: Document 05/29/22 13:42 KELLY (Rec: 05/29/22 13:52 [id number]) Discharge Planning Assessment Assigned Artificial Marble Worker CATHI Luque DPOA/Assigned Designee Name Partner Keo Liliane Contact Information [phone] Advance Directives? Yes Advance Directives on File No History Provided By Patient,Significant Other, Medical Record Prior Living Arrangements Apartment/Condo Household Members significant other Type of transporation used prior to Relies on Others admit Independent with ADL's Yes: Mod Indp Is patient alert and oriented? Yes Needs Assistance With Bathing,Grooming,Meal Prep, Home Chores / Shopping Barriers to Discharge Yes Comment PT recommending SNF. Patient w /hx CVA, Type 2 DM now w/ pneumonia and weak. SO Keo will need to assist if going home. Likely [facility] referral if cleared for home- F [place] Is Discharge Plan Home with Home Health Transportation Arrangement TBD Additional Comment Patient and SO want to return home. Following closely
[2022-05-29] MEDS: SENNOSIDES 8.6 MG TABLET PO ×2 (14:03→21:04)
[2022-05-29] MEDS: polyethylene glycoL 3350 17 GM POWD.PACK PO (14:03)
[2022-05-29] MEDS: ATORVASTATIN 20 MG TABLET 80 MG PO (21:03)
[2022-05-29] MEDS: GABAPENTIN 100 MG CAPSULE 200 MG PO (21:05)
[2022-05-30] VITALS (12 sets, daily range): BP systolic 122–168; BP diastolic 58–81; PULSE 72–88; RESP 18–20; TEMP 36.2–37.3; O2SAT 92–97
[2022-05-30] MEDS: cefTRIAXone 1,000 MG in SODIUM CHLORIDE 0.9% 100 ML 200 MG IV (04:39)
[2022-05-30] MEDS: AZITHROMYCIN 250 MG TABLET 500 MG PO (05:42)
[2022-05-30] MEDS: HYDRALAZINE 25 MG TABLET 50 MG PO ×3 (05:57→21:08)
--- NOTE | 2022-05-30 08:03 | PM.PN.1 ---
Subjective Subjective Date Patient Seen: 05/30/22 Time Patient Seen: 13:27 Interval history: Patient tearful at bedside today. Says she doesn't know what to do. Says breathing is ok. Awaiting SNF. Exam Vital Signs (past 8 hours): - 05/30/22 02:00 05/30/22 05:57 05/30/22 06:00 Temperature 98.0 F Pulse Rate 88 88 Respiratory Rate 18 Blood Pressure 168/81 H 168/81 H Pulse Oximetry 97 96 Oxygen Delivery Method Nasal Cannula Oxygen Flow Rate 2 2 05/30/22 06:00 Temperature Pulse Rate Respiratory Rate Blood Pressure Pulse Oximetry 96 Oxygen Delivery Method Nasal Cannula Oxygen Flow Rate Oxygen Delivery Method Nasal Cannula Oxygen Flow Rate 2 Narrative Exam Narrative: GEN: NAD, appears fatigued HEENT: moist mucous membranes, PERRL NECK: trachea midline, no JVD PULM: clear bilaterally, no wheezes, rhonchi, rales CV: regular rate and rhythm, no murmurs ABD: soft, nontender, nondistended, no organomegaly EXT: warm and well perfused with no edema NEURO: awake, alert, oriented, no focal deficits Objective Labs Result Diagrams: 05/29/22 06:16 05/29/22 06:16 [facility] Medical History Bilateral primary osteoarthritis of hip Cerumen impaction Hearing loss Hyperlipidemia Hypertension Intercostal muscle strain Scoliosis Urinary tract disease (~2020) Vision changes Surgical History Anesthesia H/O total hip arthroplasty Status post hernia repair Family History Brother Suicide Mother Old age Father MVA (motor vehicle accident) Social History household members: significant other Smoking Status: Former smoker Assessment & Plan Assessment & Plan narrative: 1. Acute hypoxemic respiratory failure, improving -reportedly had fever 102.8 with EMS, elevated white count, hypoxia -imaging with possible pneumonia vs atelectasis -ordered for IV antibiotics for presumed pneumonia -d-dimer greater than 20,000 and CTA showed no central PE, small arteries evaluation limited by motion -wean O2 as able, currently 2-3L. Will likely dc to SNF on 2L. 2. Fall -unclear mechanism for fall, reportedly no head strike -PT eval rec SNF, referrals placed 3. Acute metabolic encephalopathy vs cognitive impairment, resolved -patient appears confused intially in ED -could be from cognitive impairment, or encephalopathy from infection, hypertension, less likely cva -CT head ordered with discussion below -improved after resolution of hypertensive urgency, possibly related to BP -now resolved and back at baseline 4. Elevated troponin -suspect secondary to demand from infection or high blood pressure -initial trop 0.037 then rising to 0.049, then 0.042 -continue aspirin, statin, also ordered plavix 4. Hypertension, improving -blood pressure very labile initially in ED up to 211 systolic -put back on home medications and now BP in good range 5. Type 2 Diabetes on insulin -continue lantus 20U in AM -insulin sliding scale ordered 6. 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 CTA head showed patent carotids, with possible acute right vertebral artery occlusion. Spoke with Dr. Aguilar neurology at given findings and they did not think occlusion was acute. Recommended continuing aspirin, plavix and statin CODE: Full Proxy: Keo Kat, life partner Dispo: Awaiting SNF placement. Hopefully on 05/31. Time Spent With Patient Critical Care time: I spent a total of [] minutes of critical care time on this patient's care today; this time is exclusive of procedural time. Quality VTE Deep Vein Thrombosis/Pulmonary Embolism Present on Admission: No
[2022-05-30] MEDS: INSULIN LISPRO 100 UNIT/ML 3ML VIAL SUBCUT ×2 (09:42→18:23)
[2022-05-30] MEDS: INSULIN GLARGINE 100 UNIT/ML 3ML PEN 20 UNIT SUBCUT (09:42)
[2022-05-30] MEDS: LOSARTAN 50 MG TABLET PO (09:44)
[2022-05-30] MEDS: CLOPIDOGREL 75 MG TABLET PO (09:44)
[2022-05-30] MEDS: guaiFENesin ER 600 MG TAB PO ×2 (09:44→21:09)
[2022-05-30] MEDS: ASPIRIN EC 81 MG TABLET PO (09:44)
[2022-05-30] MEDS: carvediloL 12.5 MG TABLET 25 MG PO ×2 (09:44→21:09)
[2022-05-30] MEDS: BENZONATATE 100 MG CAPSULE PO (09:45)
[2022-05-30] MEDS: polyethylene glycoL 3350 17 GM POWD.PACK PO (09:45)
[2022-05-30] MEDS: SENNOSIDES 8.6 MG TABLET PO ×2 (09:45→21:08)
--- NOTE | 2022-05-30 14:08 | PT.IPTN ---
Current Diagnoses Acute respiratory failure with hypoxia (05/28/22) Physical Therapy Treatment Note M2 PT-IP Current Condition Start: 05/28/22 16:06 Freq: NEEDED Status: Active Protocol: Document 05/29/22 11:16 SP (Rec: 05/29/22 15:35 SP [id number]) Physical Therapy Current Condition Current Condition Evaluation Date 05/28/22 Treatment Diagnosis s/p fall; respiratory failure; difficulty in walking Onset Date 05/28/22 M3 PT-IP Subjective Start: 05/28/22 16:06 Freq: NEEDED Status: Active Protocol: Document 05/30/22 13:48 LJ (Rec: 05/30/22 14:08 LJ [id number]) Subjective Physical Therapy Visit Type Type Treatment Note Visit Start Time 13:16 Visit Stop Time 13:39 Total Visit Minutes 23 Physical Therapy Visit Comments Patient Comments Pt very lathargic but willing with encouragement to mobililze seated at EOB. M4 PT-IP Mobility and Gait Start: 05/28/22 16:06 Freq: NEEDED Status: Active Protocol: Document 05/30/22 13:48 LJ (Rec: 05/30/22 14:08 LJ [id number]) PT-Bed Mobility Assessment Supine to Sit Supine to Sit Maximum Assistance,1 Person Assistance,Head of Bed Elevated Sit to Supine Sit to Supine Moderate Assistance,2 Person Assistance Scooting Scooting to Edge of Bed Contact Guard Assistance Scooting Up and Down in Bed Dependent PT-Transfer Assessment Sit to and From Stand Sit to and from Stand Contact Guard Assistance, Minimal Assistance,1 Person Assistance,Use of Upper Extremities Equipment Transfer Assistive Device Gait Belt,Front Wheeled Walker Comments Mobility Comments Pt very lethargic but responsive when encouraged. Pt improved with bed mobiilty requiring only 1 person assist with many cues. Pt tried to flop to sidelying to lay back down but instructed to stay upright. Then tried to lay down other direction but instructed to support self in sitting. Pt sat on side of bed for 2 minutes CGA and many cues of instruction and encouragement. Pt then instructed to stand at side of bed which she agreed to do 3 times. Pt stood Fred -CGA x1. Pt would only stand for ~20 sec then sat back down. Pt requested to return to bed however she needed to scoot to the head of the bed. Pt stood 3 more times to take steps to HOB. Pt took 2 small half steps on first standing then next two stands she swung her bottom toward head of bed. Pt required Fred x1 for lifting LEs onto bed. Dependent for scooting to head of bed. Pt refused to attempt to sit on BSC so PHARMACIST APPRENTICE performed brief check. Pt was left in room with the PHARMACIST APPRENTICE in attendance. Gait Assessment Comments Gait Comments unwilling at this time-2 very small side steps to head of bed Stair Climbing Assessment Comments Stair Climbing Comments Pt has 2 steps and B HR to enter home, will need to assess for safe DC when able. PT-Balance Assessment Sitting Balance and Reactions Static Sitting Balance Ability Poor Dynamic Sitting Balance Ability Poor Standing Balance and Reactions Static Standing Balance Ability Fair Dynamic Standing Balance Ability Poor Device Used FWW M5 PT-IP Objective Assessments Start: 05/28/22 16:06 Freq: NEEDED Status: Active Protocol: Document 05/28/22 15:11 AB (Rec: 05/28/22 16:24 AB [id number]) Orientation Orientation/Cognition Level of Alertness Confusional State Orientation Name Language Function Ability Hard of Hearing Safety Awareness Decreased Safety Awareness Memory Description Short Term Impaired Gross Range of Motion Lower Extremity ROM Assessment Within Functional Limits Strength Lower Extremity Strength Assessment Bilaterally Impaired Hip 3+/5 Knee 4-/5 Sensation Assessment Sensation Gross Sensation WNL Muscle Tone Muscle Tone WNL Yes M6 PT-IP Treatment Start: 05/28/22 16:06 Freq: NEEDED Status: Active Protocol: Document 05/30/22 13:48 (Rec: 05/30/22 14:08 [id number]) Physical Therapy Treatment Education Education Provided Safety M7 PT-IP Assessment and Plan Start: 05/28/22 16:06 Freq: NEEDED Status: Active Protocol: Document 05/30/22 13:48 LJ (Rec: 05/30/22 14:08 [id number]) PT Summary Assessment and Plan Potential Rehabilitation Potential Fair Status of Condition at Evaluation Evolving Summary Impairments Pain,ROM,Strength,Balance, Coordination,Sensation,Tone, Cognition,Bed Mobility, Transfers,Gait,Activity Tolerance Progress Towards Goals Slow Progress due to Pain,Slow Progress due to Activity Tolerance Assessment Summary Pt improved bed mobility and sitting endurance. Able to come to standing x6 CGA x1. She required loads of encouragement and instruction otherwise she will just lay down and go to sleep. Partner states she always wants to sleep. She will require SNF to improve mobility and and strength for improved function . Goals Bed Mobility Goal Minimal Assistance Transfer Goal Minimal Assistance,Front Wheeled Walker Gait Goal Minimal Assistance,Front Wheel Walker Gait Distance 50 Other Goals improve bed mobility, transfers, ambulation using FWW/SPC 100 ft SBA up/down 3 steps B rails SBA Days to Meet Goals 10 Frequency of Treatment Frequency Of Treatment Once a Day Treatment Plan Physical Therapy Treatment Plan Bed Mobility Training,Transfer Training,Gait Training, Therapeutic Exercise,Balance Retraining,Post Op Education, Discharge Planning,Hot or Cold Pack,Neuromuscular Re-ed, Coordination Retraining,Manual Therapy Other Recommendations and Next Treatment bed mob, sitting EOB tolerance Focus , STS w/ FWW tolerance if able , SPT w/ FWW if safe. Precautions Other Precautions falls, O2 sat Recommendations To Nursing Amount of Assist Needed 1 Person Assist,2 Person Assist Discharge Recommendations PT Discharge Recommendations SNF Rehab Equipment Needed for Home Before FWW if safe to DC home Discharge Transportation Needs at Discharge Wheelchair/Cabulance,Stretcher /Ambulance
--- NOTE | 2022-05-30 14:16 | OT.IPNOTE ---
Attempted to work with pt for OT eval and pt states too tired from just working with PT and just wanting to sleep at this time. Asked pt if her friend is able to give her enough assist if going home. Pt agreed would be best to go to skilled rehab prior to going home as feeling much weaker now and more assist than her friend can provide at this time. Able to pass information to case management [place] pt is open to go to skilled rehab.
--- NOTE | 2022-05-30 14:50 | CM.DPNOTE ---
Addendum entered by CATHI Bourgeois 05/31/22 13:43: ADD: Shruthi at [facility] able to admit patient today; Dr De León would like to keep her this evening and plans to discharge tomorrow to [facility]. Shruthi updated and agreeable to plan. PASRR completed. Will plan to ask that COVID PCR be updated today. Original Note: DCP Note Spoke w/patient and her SO Keo, reviewed PT recommendation for SNF. Patient and SO state understanding and agree rehab is the safest option at this time Keo requests [facility] be attempted. If they are full, this INDUSTRIAL GAS SERVICER SUPERVISOR will plan to review IPAD w/MCR facility choices Discussed this referral with Adilene at [facility]; Shruthi and Adilene reviewing and will get back w/availability and determination Following closely JW
[2022-05-30] MEDS: ATORVASTATIN 20 MG TABLET 80 MG PO (21:08)
[2022-05-30] MEDS: GABAPENTIN 100 MG CAPSULE 200 MG PO (21:08)
[2022-05-31] VITALS (15 sets, daily range): BP systolic 114–181; BP diastolic 39–68; PULSE 70–98; RESP 16–18; TEMP 36.2–37.1; O2SAT 94–98
[2022-05-31] MEDS: cefTRIAXone 1,000 MG in SODIUM CHLORIDE 0.9% 100 ML 200 MG IV (04:59)
[2022-05-31] MEDS: HYDRALAZINE 25 MG TABLET 50 MG PO ×3 (06:15→20:56)
[2022-05-31] MEDS: polyethylene glycoL 3350 17 GM POWD.PACK PO (08:32)
[2022-05-31] MEDS: guaiFENesin ER 600 MG TAB PO ×2 (08:32→20:55)
[2022-05-31] MEDS: carvediloL 12.5 MG TABLET 25 MG PO ×2 (08:32→20:54)
[2022-05-31] MEDS: ASPIRIN EC 81 MG TABLET PO (08:32)
[2022-05-31] MEDS: LOSARTAN 50 MG TABLET PO (08:32)
[2022-05-31] MEDS: BENZONATATE 100 MG CAPSULE PO ×2 (08:32→20:55)
[2022-05-31] MEDS: INSULIN GLARGINE 100 UNIT/ML 3ML PEN 20 UNIT SUBCUT (08:33)
[2022-05-31] MEDS: SENNOSIDES 8.6 MG TABLET PO ×2 (08:57→20:55)
[2022-05-31] MEDS: CLOPIDOGREL 75 MG TABLET PO (08:57)
[2022-05-31] MEDS: SODIUM CHLORIDE 0.9% 500 ML IV (11:35)
[2022-05-31] MEDS: SODIUM CHLORIDE 0.9% 1,000 ML 100 ML IV (11:36)
--- NOTE | 2022-05-31 11:59 | P.PN_ITS ---
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 She is on antibiotic for probable pneumonia. Patient appears to be doing worse this morning with cough and more weak and also having some trouble swallowing. Noted to have diminished fluid intake yesterday with low urine output. Exam Vital Signs (past 8 hours): - 05/31/22 05:48 05/31/22 06:15 05/31/22 06:24 Temperature 97.2 F L Pulse Rate 83 83 Respiratory Rate 18 Blood Pressure 181/62 H 181/62 H Pulse Oximetry 94 94 Oxygen Delivery Method Nasal Cannula Oxygen Flow Rate 2 2 05/31/22 09:05 Temperature 97.2 F L Pulse Rate 98 H Respiratory Rate 16 Blood Pressure 143/68 H Pulse Oximetry 98 Oxygen Delivery Method Oxygen Flow Rate Oxygen Delivery Method Nasal Cannula Oxygen Flow Rate 2 Narrative Exam Narrative: General: Alert female who appears weak Lungs: No wheeze or crackles, breathing nonlabored Heart: Regular rhythm Abdomen: Soft Extremities: No edema Neuro: Diminished affect, speech okay, oriented to person and place Objective Labs Result Diagrams: 05/29/22 06:16 05/29/22 06:16 [facility] Medical History Bilateral primary osteoarthritis of hip Cerumen impaction Hearing loss Hyperlipidemia Hypertension Intercostal muscle strain Scoliosis Urinary tract disease (~2020) Vision changes Surgical History Anesthesia H/O total hip arthroplasty Status post hernia repair Family History Brother Suicide Mother Old age Father MVA (motor vehicle accident) Social History household members: significant other Smoking Status: Former smoker Assessment & Plan Assessment & Plan narrative: 1. Acute hypoxemic respiratory failure, bacterial pneumonia -reportedly had fever 102.8 with EMS, elevated white count, hypoxia -imaging with possible pneumonia vs atelectasis -continue Rocephin for presumed pneumonia -d-dimer greater than 20,000 and CTA showed no central PE, small arteries evaluation limited by motion -wean O2 as able, currently 2L. Will likely dc to SNF on 2L. 2. Fall, weakness -unclear mechanism for fall, reportedly no head strike -PT eval rec SNF, referrals placed -05/31 ordered IV fluids for 1 day as patient appears somewhat volume depleted due to diminished p.o. intake 3. Acute metabolic encephalopathy vs cognitive impairment, resolved -patient appears confused intially in ED -could be from cognitive impairment, or encephalopathy from infection, hypertension, less likely cva -CT head ordered with discussion below -improved after resolution of hypertensive urgency, possibly related to BP -now resolved and back at baseline 4. Elevated troponin -suspect secondary to demand from infection or high blood pressure -initial trop 0.037 then rising to 0.049, then 0.042 -continue aspirin, Plavix, statin per home routine 4. Hypertension, improving -blood pressure very labile initially in ED up to 211 systolic -put back on home medications and now BP in good range 5. Type 2 Diabetes on insulin, good control in hospital -continue lantus 20U in AM -insulin sliding scale ordered 6. 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 CTA head showed patent carotids, with possible acute right vertebral artery occlusion. Spoke with Dr. Aguilar neurology at given findings and they did not think occlusion was acute. Recommended continuing aspirin, plavix and statin Hopefully [facility] for SNF rehab tomorrow if medically stable CODE: Full Proxy: Keo Kat, life partner Time Spent With Patient Critical Care time: I spent a total of [] minutes of critical care time on this patient's care today; this time is exclusive of procedural time. Quality VTE Deep Vein Thrombosis/Pulmonary Embolism Present on Admission: No
[2022-05-31] MEDS: INSULIN LISPRO 100 UNIT/ML 3ML VIAL SUBCUT (12:42)
[2022-05-31] MEDS: ENOXAPARIN 40 MG/0.4 ML SYRINGE SUBCUT (12:43)
--- NOTE | 2022-05-31 15:20 | PT.IPTN ---
Current Diagnoses Acute respiratory failure with hypoxia (05/28/22) Physical Therapy Treatment Note M2 PT-IP Current Condition Start: 05/28/22 16:06 Freq: NEEDED Status: Active Protocol: Document 05/29/22 11:16 SP (Rec: 05/29/22 15:35 SP [id number]) Physical Therapy Current Condition Current Condition Evaluation Date 05/28/22 Treatment Diagnosis s/p fall; respiratory failure; difficulty in walking Onset Date 05/28/22 M3 PT-IP Subjective Start: 05/28/22 16:06 Freq: NEEDED Status: Active Protocol: Document 05/31/22 14:37 LJ (Rec: 05/31/22 15:20 LJ [id number]) Subjective Physical Therapy Visit Type Type Treatment Note Visit Start Time 14:07 Visit Stop Time 14:28 Total Visit Minutes 21 Notes Vitals 163/53, HR 71, O2 94% 2 .5L Number of SPECIMEN PREPARATION ASSISTANT Visits 3 Physical Therapy Visit Comments Patient Comments Pt very lathargic but willing with encouragement to mobililze sit on EOB. Therapy Pain Assessment Pain When Pain Assessed During Mobility Location Back Scale Used pain scale not stated Description With Movement Pain Behaviors Facial Grimacing Pain Management Techniques Distraction,Modification of Treatment,Re-positioning M4 PT-IP Mobility and Gait Start: 05/28/22 16:06 Freq: NEEDED Status: Active Protocol: Document 05/31/22 14:37 LJ (Rec: 05/31/22 15:20 LJ [id number]) PT-Bed Mobility Assessment Supine to Sit Supine to Sit Maximum Assistance,1 Person Assistance,Head of Bed Elevated Sit to Supine Sit to Supine Moderate Assistance,2 Person Assistance Scooting Scooting to Edge of Bed Minimal Assistance PT-Transfer Assessment Comments Mobility Comments Pt found lying in bed. Willing to attempt to sit on side of bed. MaxAx1 supine-sit. Fred with LEs off side of bed. Pt required ModA x2 then 1 to sit on side of bed. Pt sat with legs dangling for 20-30 sec x 3 with MaxA x1 for balance. Pt uses UEs to balance but will not sustain Fred sitting for more than a couple of seconds. She flops down onto the bed. She required assist with LEs to get back onto bed. Pt Fred x1 to position in bed on left side. Pt left in bed with all needs within reach. Gait Assessment Comments Gait Comments Pt unwilling to attempt ambulation Stair Climbing Assessment Comments Stair Climbing Comments Pt has 2 steps and B HR to enter home, will need to assess for safe DC when able. PT-Balance Assessment Sitting Balance and Reactions Static Sitting Balance Ability Poor Dynamic Sitting Balance Ability Poor Standing Balance and Reactions Static Standing Balance Ability Fair Dynamic Standing Balance Ability Poor Device Used FWW M5 PT-IP Objective Assessments Start: 05/28/22 16:06 Freq: NEEDED Status: Active Protocol: Document 05/28/22 15:11 AB (Rec: 05/28/22 16:24 AB [id number]) Orientation Orientation/Cognition Level of Alertness Confusional State Orientation Name Language Function Ability Hard of Hearing Safety Awareness Decreased Safety Awareness Memory Description Short Term Impaired Gross Range of Motion Lower Extremity ROM Assessment Within Functional Limits Strength Lower Extremity Strength Assessment Bilaterally Impaired Hip 3+/5 Knee 4-/5 Sensation Assessment Sensation Gross Sensation WNL Muscle Tone Muscle Tone WNL Yes M6 PT-IP Treatment Start: 05/28/22 16:06 Freq: NEEDED Status: Active Protocol: Document 05/31/22 14:37 (Rec: 05/31/22 15:20 [id number]) Physical Therapy Treatment Education Education Provided Safety M7 PT-IP Assessment and Plan Start: 05/28/22 16:06 Freq: NEEDED Status: Active Protocol: Document 05/31/22 14:37 (Rec: 05/31/22 15:20 [id number]) PT Summary Assessment and Plan Potential Rehabilitation Potential Fair Status of Condition at Evaluation Evolving Summary Impairments Pain,ROM,Strength,Balance, Coordination,Sensation,Tone, Cognition,Bed Mobility, Transfers,Gait,Activity Tolerance Progress Towards Goals Slow Progress due to Pain,Slow Progress due to Activity Tolerance Assessment Summary Pt requires max encouragement and cueing for bed mobility and transfers. Her ability to sit on side of bed limited by trunk strength, and activity tolerance, and sitting endurance. She repeats she just wants to lay down and sleep. She will require SNF to improve mobility, strength, balance, and gait advancement to improved function. Goals Bed Mobility Goal Minimal Assistance Transfer Goal Minimal Assistance,Front Wheeled Walker Gait Goal Minimal Assistance,Front Wheel Walker Gait Distance 50 Other Goals improve bed mobility, transfers, ambulation using FWW/SPC 100 ft SBA up/down 3 steps B rails SBA Days to Meet Goals 10 Frequency of Treatment Frequency Of Treatment Once a Day Treatment Plan Physical Therapy Treatment Plan Bed Mobility Training,Transfer Training,Gait Training, Therapeutic Exercise,Balance Retraining,Post Op Education, Discharge Planning,Hot or Cold Pack,Neuromuscular Re-ed, Coordination Retraining,Manual Therapy Other Recommendations and Next Treatment bed mob, sitting EOB tolerance Focus , STS w/ FWW tolerance if able , SPT w/ FWW if safe. Precautions Other Precautions falls, O2 sat Recommendations To Nursing Amount of Assist Needed 1 Person Assist,2 Person Assist Discharge Recommendations PT Discharge Recommendations SNF Rehab Equipment Needed for Home Before FWW if safe to DC home Discharge Transportation Needs at Discharge Wheelchair/Cabulance,Stretcher /Ambulance
[2022-05-31] MEDS: ATORVASTATIN 20 MG TABLET 80 MG PO (20:54)
[2022-05-31] MEDS: GABAPENTIN 100 MG CAPSULE 200 MG PO (20:55)
[2022-06-01] VITALS (9 sets, daily range): BP systolic 139–181; BP diastolic 50–95; PULSE 3–75; RESP 18; TEMP 36.5; O2SAT 93–98
[2022-06-01] MEDS: cefTRIAXone 1,000 MG in SODIUM CHLORIDE 0.9% 100 ML 200 MG IV (05:03)
[2022-06-01] MEDS: HYDRALAZINE 25 MG TABLET 50 MG PO (05:42)
[2022-06-01 06:24] LABS: Add Manual Diff / Slide Review NO; Basophils Absolute Auto 100 /uL (0-100); Basophils Percent Auto 0.9 % (0-2); Eosinophils Absolute Auto 400 /uL (0-450); Eosinophils Percent Auto 5.7 % (2-4); Hemoglobin 10.7 g/dL (12.0-16.0); Lymphocytes Absolute Auto 2400 /uL (1100-4500); Lymphocytes Percent Auto 33.9 % (25-40); Mean Corpuscular HGB Conc 33.6 % (30-36); Mean Corpuscular Hemoglobin 29.6 PG (26-34); Monocytes Absolute Auto 800 /uL (0-900); Monocytes Percent Auto 11.6 % (3-14); Neutrophils Absolute Auto 3300 /uL (1500-7000); Neutrophils Percent Auto 47.9 % (50-75); Platelet Count 207 X10^3/uL (150-400); Red Blood Cell Count 3.63 X10^6/uL (4.0-5.2); Red Cell Distribution Width 13.9 % (11.6-14.8); White Blood Cell Count 6.9 X10^3/uL (4.5-11.0)
[2022-06-01 06:27] LABS: Blood Urea Nitrogen 28 mg/dL (7-17); Calcium 8.3 mg/dL (8.4-10.2); Carbon Dioxide 33 mmol/L (22-32); Chloride 103 mmol/L (98-107); Estimated Glomerular Filt Rate > 60 mL/min (>60); Glucose 107 mg/dL (80-110); HEMOLYSIS 18 (0-50); Potassium 3.6 mmol/L (3.4-5.1); Sodium 142 mmol/L (137-145)
--- NOTE | 2022-06-01 08:35 | CM.DPC ---
DCP Cont: This DCP called and spoke with Shruthi at [facility], Shruthi can accept pt at 1130 they will p/u pt. Covid 19 test ordered by this TXP stat. Floor nurse notified. Will notify Dr. De León.
[2022-06-01] MEDS: INSULIN GLARGINE 100 UNIT/ML 3ML PEN 20 UNIT SUBCUT (09:51)
[2022-06-01] MEDS: ENOXAPARIN 40 MG/0.4 ML SYRINGE SUBCUT (09:52)
[2022-06-01] MEDS: polyethylene glycoL 3350 17 GM POWD.PACK PO (09:52)
[2022-06-01] MEDS: ASPIRIN EC 81 MG TABLET PO (09:53)
[2022-06-01] MEDS: CLOPIDOGREL 75 MG TABLET PO (09:53)
[2022-06-01] MEDS: carvediloL 12.5 MG TABLET 25 MG PO (09:53)
[2022-06-01] MEDS: guaiFENesin ER 600 MG TAB PO (09:53)
[2022-06-01] MEDS: SENNOSIDES 8.6 MG TABLET PO (09:53)
[2022-06-01] MEDS: LOSARTAN 50 MG TABLET PO (09:53)
--- NOTE | 2022-06-01 11:12 | P.DS_ITS ---
History of Present Illness History of Present Illness Date Patient Seen: 06/01/22 Time Patient Seen: 11:12 Chief complaint: SOB- temp 102.3 Narrative: Ms. 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 Apparently she was able to tell the ED physician she had a fall onto her backside, and she had no head strike. It was unclear why she fell. However, she is able to tell me even less about the mechanism of fall, just that she fell earlier today and she wasn't clear how she fell or what she hit. When I see her she is completely denying any symptoms. She says she doesn't feel normal, but she denies headache, weakness, nausea, vomiting, abdominal pain, chest pain, cough, shortness of breath, fevers or chills. However when she was still at home she apparently started becoming short of breath, which is why her partner called EMS, she was flown off [facility]. EMS noted she had a fever of 102 and O2 sats were in the 80s. In the ED workup was done, vitals notable for afebrile. Blood pressure was labile but she did have a blood pressure in the 200s systolic. Labs notable for WBC 14.3, hgb 12.7, plts 180. Creatinine 0.67. Trop 0.037 then 0.049. BNP 889. Procal 0.21. COVID, flu, rsv negative. D-dimer 15265. Chest xray read as left basilar consolidation and small left pleural effusion. CTA chest read as no PE, but there was noted bronchial wall thickening, and subsegmental atelectasis. EKG showed no acute ischemia. She received Iv antibiotics and was admitted for further treatment. I did discuss the case with the ED physician. Discharge Providers Provider Date of admission: 05/28/22 04:16 Discharge Date: 06/01/22 Primary care physician: Lowell Weathers DO Consults: 05/28/22 06:17 Consult to Physical Therapy Evaluate & Treat Comment: Physician Instructions: Evaluate and Treat 05/30/22 10:41 Consult to Occupational Therapy Evaluate & Treat Comment: Physician Instructions: Evaluate and treat 05/31/22 10:34 Consult to Speech Therapy Evaluate & Treat Comment: swallow eval Physician Instructions: Evaluate and treat Discharge provider: Marcelino Hylton MD Summary Hospital Course Hospital Course: 1. Acute hypoxemic respiratory failure, bacterial pneumonia -reportedly had fever 102.8 with EMS, elevated white count, hypoxia -imaging CT and CXR with possible pneumonia vs atelectasis -Discharge on 7 days of Cefuroxime after 3-4 days of IV Rocephin for presumed pneumonia -d-dimer greater than 20,000 and CTA showed no central PE, small arteries evaluation limited by motion -wean O2 as able, currently 2L. To be weaned as possible at the SNF. 2. Fall, weakness -Her baseline is most of the time in bed, using a walker 1-2 times a day to walk in her house with 1:1 assistance -unclear mechanism for fall, reportedly no head strike -PT eval rec SNF -05/31 given IV fluids for 1 day as patient appeared somewhat volume depleted due to diminished p.o. intake 3. Acute metabolic encephalopathy vs cognitive impairment, resolved -patient appears confused intially in ED -could be from cognitive impairment, or encephalopathy from infection, hypertension, less likely cva -CT and MR Head showing probably old Right WEFT STRAIGHTENER infarct -improved after resolution of hypertensive urgency, possibly related to BP -now resolved and back at baseline 4. Elevated troponin -suspect secondary to demand from infection or high blood pressure -initial trop 0.037 then rising to 0.049, then 0.042 -continue aspirin, Plavix, statin per home routine 4. Hypertension, improving -blood pressure very labile initially in ED up to 211 systolic -put back on home medications and now BP in good range 5. Type 2 Diabetes on insulin, good control in hospital -continue lantus 20U in AM and Lispro 3 units AC 6. 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 CTA head showed patent carotids, with possible acute right vertebral artery occlusion. Spoke with Dr. Aguilar neurology at given findings and they did not think occlusion was acute. Recommended continuing aspirin, plavix and statin Status at Discharge Cognitive/behavioral status at discharge: at baseline, confused Functional status at discharge: bed bound Overall status at discharge: patient is not back to baseline Exam Vital Signs (past 8 hours): - 06/01/22 03:19 06/01/22 05:42 06/01/22 05:49 Temperature 97.7 F Pulse Rate 75 3 L Respiratory Rate 18 Blood Pressure 139/74 181/85 H Pulse Oximetry 97 93 Oxygen Delivery Method Nasal Cannula Oxygen Flow Rate 2 2 06/01/22 06:17 06/01/22 08:56 06/01/22 09:53 Temperature Pulse Rate 72 73 73 Respiratory Rate 18 Blood Pressure 161/72 H 168/95 H 172/50 H Pulse Oximetry 96 Oxygen Delivery Method Oxygen Flow Rate 2 06/01/22 09:53 06/01/22 10:00 Temperature Pulse Rate 73 Respiratory Rate Blood Pressure 172/50 H Pulse Oximetry 96 Oxygen Delivery Method Nasal Cannula Oxygen Flow Rate 2 Oxygen Delivery Method Nasal Cannula Oxygen Flow Rate 2 Narrative Exam Narrative: Appears weak and confused. Partner says she looks better and is close to her baseline. Continues to need 2L NC oxygen H: RRR without murmu L: CTAB E: No ankle edema Neuro: Confused, no tremor, no obvious visual field loss, no motor assymmetry. Objective Labs Result Diagrams: 06/01/22 05:31 06/01/22 05:31 Labs: Laboratory Results - last 24 hr 06/01/22 06/01/22 05:31 05:31 WBC 6.9 RBC 3.63 L Hgb 10.7 L Hct 32.0 L MCV 88.0 MCH 29.6 MCHC 33.6 RDW 13.9 Plt Count 207 Neut % (Auto) 47.9 L Lymph % (Auto) 33.9 [place] % (Auto) 11.6 Eos % (Auto) 5.7 H Baso % (Auto) 0.9 Neut # (Auto) 3300 Lymph # (Auto) 2400 [place] # (Auto) 800 Eos # (Auto) 400 Baso # (Auto) 100 Sodium 142 Potassium 3.6 Chloride 103 Carbon Dioxide 33 H BUN 28 H Creatinine 0.80 Estimated GFR > 60 BUN/Creatinine Ratio 35.0 H Glucose 107 Calcium 8.3 L PFSH Medical History Bilateral primary osteoarthritis of hip Cerumen impaction Hearing loss Hyperlipidemia Hypertension Intercostal muscle strain Scoliosis Urinary tract disease (~2020) Vision changes Surgical History Anesthesia H/O total hip arthroplasty Status post hernia repair Family History Brother Suicide Mother Old age Father MVA (motor vehicle accident) Social History household members: significant other Smoking Status: Former smoker Discharge Plan Discharge Plan Patient Disposition: SNF Transfer to: [facility] Under care of provider: [employer] Provider Discharge Comment: Continue Oxygen 2 L NC Discharge orders & Medications Prescriptions: New sennosides [senna] 8.6 mg Tablet 8.6 mg PO BID Qty: 60 0RF acetaminophen 325 mg Tablet 650 mg PO Q6H PRN (Reason: Fever/Mild Pain (1-3)) Qty: 30 0RF atorvastatin [Lipitor] 20 mg Tablet 80 mg PO BEDTIME Qty: 30 0RF polyethylene glycol 3350 17 gram Powder In Packet 17 gm PO DAILY Qty: 30 0RF benzonatate 100 mg Capsule 100 mg PO TID PRN (Reason: Cough) Qty: 90 0RF gabapentin 100 mg Capsule 200 mg PO BEDTIME Qty: 30 0RF insulin glargine [Lantus Solostar U-100 Insulin] 100 unit/mL (3 mL) Insulin Pen 20 unit SUBCUT 0800 Qty: 12 0RF cefuroxime axetil 500 mg tablet 500 mg PO Q12H Qty: 14 0RF Continued insulin aspart U-100 [Novolog Flexpen U-100 Insulin] 100 unit/mL (3 mL) insulin pen 3 unit SUBCUT TID Qty: 3 1RF clopidogrel 75 mg tablet 75 mg PO DAILY Qty: 90 1RF carvedilol 25 mg tablet See Rx Instructions .ROUTE .COMPLEX Qty: 90 1RF Dose Instruction: TAKE ONE TABLET BY MOUTH TWICE A DAY WITH FOOD Rx Instructions: TAKE ONE TABLET BY MOUTH TWICE A DAY WITH FOOD aspirin [Adult Aspirin Regimen] 81 mg tablet,delayed release (DR/EC) 81 mg PO DAILY losartan 50 mg tablet 50 mg PO DAILY Qty: 90 3RF hydralazine 50 mg tablet 50 mg PO TID Qty: 270 3RF Discontinued Lantus Solostar U-100 Insulin 100 unit/mL (3 mL) insulin pen See Rx Instructions .ROUTE .COMPLEX Qty: 9 2RF Dose Instruction: INJECT 20 UNITS SUBCUTANEOUSLY EVERY MORNING Rx Instructions: INJECT 20 UNITS SUBCUTANEOUSLY EVERY MORNING atorvastatin 40 mg tablet See Rx Instructions .ROUTE .COMPLEX Qty: 90 1RF Dose Instruction: TAKE ONE TABLET BY MOUTH EVERY DAY Rx Instructions: TAKE ONE TABLET BY MOUTH EVERY DAY No Action (DME) pen needle, diabetic [BD Mya 2nd Gen Pen Needle] 32 gauge x 5/32 needle See Rx Instructions .Route Qty: 100 3RF Rx Instructions: As directed with Lantus once daily Follow up/Referrals: Lowell Weathers, [Primary Care Provider] - Diet/Activity/Treatments Diet: Diet as Tolerated Liquid consistency: Normal/Thin Food texture: Regular [facility] Rehab type: Physical therapy, Occupational therapy and Speech therapy Visit Report/Discharge Packet Stand Alone Forms: Patient Portal/API, Stroke Signs & Symptoms Discharge Data Primary Care Provider: Lowell Weathers Quality VTE Deep Vein Thrombosis/Pulmonary Embolism Present on Admission: No
[2022-06-01 11:23] LABS: COVID19 -Nasal RAPID Negative (Negative)
--- NOTE | 2022-06-01 12:56 | PC.NURSE ---
Pt discharged at 1200 to [facility], escorted off floor in wheelchair, accompanied by facility staff and significant other. IV removed, tele d/c'd, discharge packet sent with facility staff including prescription orders. Report called to Brendon at 1130. All belongings left floor with patient.
== END 2022-06-01 13:18 | DRG 193 ==
LOC: ED 04:16 → AC 04:17
PROVIDERS: Internal Medicine; Student in an Organized Health Care Education/Training Program; Admitting Provider Internal Medicine; Emergency Provider Emergency Medicine; Family Provider Family Medicine; PCP Family Medicine; Referring Provider Emergency Medicine; Visit Provider Internal Medicine
DX: J15.9 Unspecified bacterial pneumonia (principal); G93.41 Metabolic encephalopathy; J96.01 Acute respiratory failure with hypoxia; I24.8 Other forms of acute ischemic heart disease; I10 Essential (primary) hypertension; E11.9 Type 2 diabetes mellitus without complications; R53.1 Weakness; Z86.73 Personal history of transient ischemic attack (TIA), and cerebral infarction without residual deficits; Z79.4 Long term (current) use of insulin; Z20.822 Contact with and (suspected) exposure to COVID-19; Z87.891 Personal history of nicotine dependence
CPT/HCPCS: 0241U; 36415; 70450; 70496; 70498; 70551; 71045; 71275; 80048; 80053; 81001; 81003; 82550; 82962; 83605; 83690; 83735; 83880; 84145; 84484; 85025; 85379; 87040; 87086; 87635; 93005; 93010; 94618; 94640; 94760; 96365; 96367; 96372; 96375; 96376; 97162; 97530; 99285; C9803; J0696; J1650; J1815; J2060; Q9967

== ENCOUNTER → 2022-07-24 14:36 | Outpatient (CLI) | payer MEDICARE, MEDICAID, SELFPAY ==
[2022-07-03 15:23] VITALS: BMI 33.4
[2022-07-24 20:33] LABS: Add Manual Diff / Slide Review NO; Basophils Absolute Auto 100 /uL (0-100); Basophils Percent Auto 1.3 % (0-2); Eosinophils Absolute Auto 200 /uL (0-450); Eosinophils Percent Auto 3.1 % (2-4); Hematocrit 37.3 % (36-46); Hemoglobin 12.1 g/dL (12.0-16.0); Lymphocytes Absolute Auto 2200 /uL (1100-4500); Lymphocytes Percent Auto 34.4 % (25-40); Mean Corpuscular HGB Conc 32.4 % (30-36); Mean Corpuscular Hemoglobin 29.8 PG (26-34); Mean Corpuscular Volume 91.9 fL (80-100); Monocytes Absolute Auto 500 /uL (0-900); Monocytes Percent Auto 7.7 % (3-14); Neutrophils Absolute Auto 3400 /uL (1500-7000); Neutrophils Percent Auto 53.5 % (50-75); Platelet Count 229 X10^3/uL (150-400); Red Blood Cell Count 4.06 X10^6/uL (4.0-5.2); Red Cell Distribution Width 14.6 % (11.6-14.8); White Blood Cell Count 6.4 X10^3/uL (4.5-11.0)
[2022-07-24 20:36] LABS: Alanine Aminotransferase 25 IU/L (<35); Albumin 3.5 g/dL (3.5-5.0); Alkaline Phosphatase 69 U/L (38-126); Aspartate Aminotransferase 32 IU/L (14-36); BUN Creatinine Ratio 22.1 (6-22); Bilirubin Total 0.6 mg/dL (0.2-1.3); Blood Urea Nitrogen 15 mg/dL (7-17); Calcium 8.7 mg/dL (8.4-10.2); Carbon Dioxide 29 mmol/L (22-32); Chloride 104 mmol/L (98-107); Estimated Glomerular Filt Rate > 60 mL/min (>60); Globulin 3.4 g/dL (1.7-4.1); Glucose 179 mg/dL (80-110); HEMOLYSIS 16 (0-50); Hemoglobin A1C% w Est Avg Glu 6.1 % (4.0-6.0); Sodium 140 mmol/L (137-145); Total Protein 6.9 g/dL (6.3-8.2)
== END ==
PROVIDERS: Family Provider Family Medicine; PCP Family Medicine; Visit Provider Family Medicine
DX: E11.65 Type 2 diabetes mellitus with hyperglycemia (principal); I10 Essential (primary) hypertension; D64.9 Anemia, unspecified; E11.49 Type 2 diabetes mellitus with other diabetic neurological complication; Z79.4 Long term (current) use of insulin
CPT/HCPCS: 80053; 83036; 84443; 85025

== ENCOUNTER → 2022-10-29 14:32 | Outpatient (CLI) | payer MEDICARE, MEDICAID, SELFPAY ==
[2022-09-04 15:13] VITALS: BMI 33.4
[2022-10-29 20:12] LABS: Creatinine Urine Random 140.7 mg/dL
[2022-10-29 20:31] LABS: Microalbumi Creatinin Ratio Ur 188.3 ug/mg CR (<30); Microalbumin Urine Random 26.5 mg/dL (0-1.6)
== END ==
PROVIDERS: Family Provider Family Medicine; PCP Family Medicine; Visit Provider Family Medicine
DX: E11.49 Type 2 diabetes mellitus with other diabetic neurological complication (principal); Z79.4 Long term (current) use of insulin
CPT/HCPCS: 82043; 82570

== ENCOUNTER → 2022-11-05 11:53 | Outpatient (CLI) | payer MEDICARE, MEDICAID, SELFPAY ==
[2022-09-04 15:13] VITALS: BMI 33.4
== END ==
PROVIDERS: Family Provider Family Medicine; PCP Family Medicine; Visit Provider Physician Assistant
DX: N39.0 Urinary tract infection, site not specified (principal)
CPT/HCPCS: 87086

== ENCOUNTER → 2022-12-05 11:31 | Outpatient (CLI) | payer MEDICARE, MEDICAID, SELFPAY ==
[2022-09-04 15:13] VITALS: BMI 33.4
== END ==
PROVIDERS: Family Provider Family Medicine; PCP Family Medicine; Visit Provider Family Medicine
DX: N39.0 Urinary tract infection, site not specified (principal)
CPT/HCPCS: 87086

== ENCOUNTER → 2023-07-28 14:18 | Outpatient (CLI) | payer MEDICARE, MEDICAID, SELFPAY ==
[2022-09-04 15:13] VITALS: BMI 33.4
[2023-07-28 19:01] LABS: Add Manual Diff / Slide Review NO; Basophils Absolute Auto 100 /uL (0-100); Basophils Percent Auto 0.8 % (0-2); Eosinophils Absolute Auto 300 /uL (0-450); Eosinophils Percent Auto 4.9 % (2-4); Hematocrit 39.7 % (36-46); Hemoglobin 13.3 g/dL (12.0-16.0); Lymphocytes Absolute Auto 2100 /uL (1100-4500); Lymphocytes Percent Auto 32.5 % (25-40); Mean Corpuscular HGB Conc 33.4 % (30-36); Mean Corpuscular Volume 89.8 fL (80-100); Monocytes Absolute Auto 500 /uL (0-900); Monocytes Percent Auto 7.8 % (3-14); Neutrophils Absolute Auto 3500 /uL (1500-7000); Platelet Count 222 X10^3/uL (150-400); Red Blood Cell Count 4.42 X10^6/uL (4.0-5.2); White Blood Cell Count 6.4 X10^3/uL (4.5-11.0)
[2023-07-28 19:34] LABS: TSH w/ Reflex to FT4 3.53 uIU/mL (0.47-4.68)
[2023-07-28 20:16] LABS: Alanine Aminotransferase 35 IU/L (<35); Albumin Globulin Ratio 1.1 (1.0-2.8); Alkaline Phosphatase 74 U/L (38-126); Aspartate Aminotransferase 73 IU/L (14-36); BUN Creatinine Ratio 21.4 (6-22); Bilirubin Total 0.7 mg/dL (0.2-1.3); Blood Urea Nitrogen 15 mg/dL (7-17); Calcium 9.2 mg/dL (8.4-10.2); Carbon Dioxide 28 mmol/L (22-32); Chloride 107 mmol/L (98-107); Estimated Glomerular Filt Rate > 60 mL/min (>60); Globulin 3.7 g/dL (1.7-4.1); Glucose 148 mg/dL (80-110); HEMOLYSIS 19 (0-50); Potassium 4.1 mmol/L (3.4-5.1); Sodium 141 mmol/L (137-145); Total Protein 7.7 g/dL (6.3-8.2)
[2023-07-28 20:26] LABS: LDL Cholesterol Direct 56 mg/dL (<100)
== END ==
PROVIDERS: Family Provider Family Medicine; PCP Family Medicine; Visit Provider Family Medicine
DX: H35.033 Hypertensive retinopathy, bilateral (principal); E11.49 Type 2 diabetes mellitus with other diabetic neurological complication; I69.398 Other sequelae of cerebral infarction; H53.462 Homonymous bilateral field defects, left side; H04.209 Unspecified epiphora, unspecified side; D64.9 Anemia, unspecified
CPT/HCPCS: 80053; 83721; 84443; 85025

== ENCOUNTER → 2024-01-29 13:15 | Outpatient (CLI) | payer MEDICARE, MEDICAID, SELFPAY ==
[2022-09-04 15:13] VITALS: BMI 33.4
[2024-01-30 10:51] LABS: Creatinine Urine Random 220.93 mg/dL; Protein (Total) Urine Random 21 mg/dL (0-12); Protein Creatinine Ratio Urine 0.09 GRAM/24H
== END ==
PROVIDERS: Family Provider Family Medicine; PCP Family Medicine; Visit Provider Family Medicine
DX: E11.29 Type 2 diabetes mellitus with other diabetic kidney complication (principal); R80.9 Proteinuria, unspecified
CPT/HCPCS: 82570; 84156

== ENCOUNTER → 2024-03-16 14:52 | Outpatient (CLI) | payer MEDICARE, MEDICAID, SELFPAY ==
[2022-09-04 15:13] VITALS: BMI 33.4
--- NOTE | 2024-03-16 15:00 | DI.US.S_ITS ---
PROCEDURE: US PERIPH VENOUS LOW EXTREM LT INDICATIONS: painless swelling left upper leg, redness lower leg ?dvt TECHNIQUE: Real-time imaging, as well as color and pulse Doppler interrogation, were performed of the lower extremity deep veins from the inguinal ligament to the popliteal fossa, with documentation of the visualized calf veins. COMPARISON: None. FINDINGS: The common femoral, femoral, popliteal, and the visualized calf veins are normally compressible, and free of intraluminal thrombus. Color and pulse Doppler demonstrate normal phasic intraluminal flow. There is normal augmentation response to distal compression maneuver. IMPRESSION: No findings of lower extremity deep venous thrombosis. Note: Findings relayed to Dr. Mejía via office staff, Gunjan, at 4:14 p.m. [place] time on March 16, 2024. Dictated by: Eamon Sarah M.D. on 03/16/2024 at 15:09 Approved by: Eamon Sarah M.D. on 03/16/2024 at 15:15
== END ==
PROVIDERS: Family Provider Family Medicine; PCP Family Medicine; Referring Provider Family Medicine; Visit Provider Family Medicine
DX: M79.89 Other specified soft tissue disorders (principal)
CPT/HCPCS: 93971

== ENCOUNTER → 2024-08-16 12:27 | Outpatient (CLI) | payer MEDICARE, MEDICAID, SELFPAY ==
[2022-09-04 15:13] VITALS: BMI 33.4
== END ==
PROVIDERS: Family Provider Family Medicine; PCP Family Medicine; Visit Provider Family Medicine
DX: R39.89 Other symptoms and signs involving the genitourinary system (principal)
CPT/HCPCS: 87086

== ENCOUNTER → 2024-08-30 12:23 | Outpatient (CLI) | payer MEDICARE, MEDICAID, SELFPAY ==
[2022-09-04 15:13] VITALS: BMI 33.4
[2024-08-30 18:43] LABS: Add Manual Diff / Slide Review NO; Basophils Absolute Auto 0 /uL (0-100); Basophils Percent Auto 0.6 % (0-2); Eosinophils Absolute Auto 200 /uL (0-450); Eosinophils Percent Auto 3.8 % (2-4); Hematocrit 41.7 % (36-46); Hemoglobin 13.8 g/dL (12.0-16.0); Lymphocytes Absolute Auto 1100 /uL (1100-4500); Lymphocytes Percent Auto 16.2 % (25-40); Mean Corpuscular HGB Conc 33.2 % (30-36); Mean Corpuscular Hemoglobin 29.8 PG (26-34); Mean Corpuscular Volume 89.8 fL (80-100); Monocytes Absolute Auto 400 /uL (0-900); Monocytes Percent Auto 5.8 % (3-14); Neutrophils Absolute Auto 4900 /uL (1500-7000); Neutrophils Percent Auto 73.6 % (50-75); Platelet Count 220 X10^3/uL (150-400); Red Blood Cell Count 4.64 X10^6/uL (4.0-5.2); Red Cell Distribution Width 14.9 % (11.6-14.8); White Blood Cell Count 6.6 X10^3/uL (4.5-11.0)
[2024-08-30 18:48] LABS: HEMOLYSIS < 15 (0-50); Iron 123 ug/dL (37-170)
[2024-08-30 18:52] LABS: Alanine Aminotransferase 47 IU/L (<35); Albumin 3.8 g/dL (3.5-5.0); Albumin Globulin Ratio 1.1 (1.0-2.8); Alkaline Phosphatase 74 U/L (38-126); Aspartate Aminotransferase 94 IU/L (14-36); BUN Creatinine Ratio 17.3 (6-22); Bilirubin Total 0.8 mg/dL (0.2-1.3); Blood Urea Nitrogen 14 mg/dL (7-17); Calcium 9.3 mg/dL (8.4-10.2); Carbon Dioxide 29 mmol/L (22-32); Chloride 103 mmol/L (98-107); Estimated Glomerular Filt Rate > 60 mL/min (>60); Globulin 3.4 g/dL (1.7-4.1); Glucose 208 mg/dL (80-110); HEMOLYSIS 37 (0-50); Hemoglobin A1C% w Est Avg Glu 6.4 % (4.0-6.0); Magnesium 1.7 mg/dL (1.6-2.3); Potassium 3.9 mmol/L (3.4-5.1); Sodium 141 mmol/L (137-145); Total Protein 7.2 g/dL (6.3-8.2)
[2024-08-30 19:07] LABS: Percent Iron Saturation 40 % (15-50); Total Iron Binding Capacity 308 ug/dL (265-497); Transferrin 232 mg/dL (206-381)
[2024-08-30 19:25] LABS: Thyroid Stimulating Hormone 3.16 uIU/mL (0.47-4.68)
[2024-08-30 19:29] LABS: Ferritin 46 ng/mL (11-264)
[2024-08-31 23:07] LABS: HBsAg Screen Negative (Negative); Hepatitis A Antibody IgM Negative (Negative); Hepatitis B Core Antibody IgM Negative (Negative); Hepatitis C Antibody Non Reactive (Non Reactive)
== END ==
PROVIDERS: Family Provider Family Medicine; PCP Family Medicine; Visit Provider Family Medicine
DX: R74.01 Elevation of levels of liver transaminase levels (principal); E11.49 Type 2 diabetes mellitus with other diabetic neurological complication; R25.2 Cramp and spasm; I10 Essential (primary) hypertension
CPT/HCPCS: 80053; 80074; 82728; 83036; 83540; 83550; 83735; 84443; 85025

== ENCOUNTER → 2025-03-06 13:21 | Outpatient (CLI) | payer MEDICARE, MEDICAID, SELFPAY ==
[2022-09-04 15:13] VITALS: BMI 33.4
[2025-03-06 18:44] LABS: Add Manual Diff / Slide Review NO; Hematocrit 40.6 % (36-46); Hemoglobin 13.4 g/dL (12.0-16.0); Lymphocytes Absolute Auto 1200 /uL (1100-4500); Mean Corpuscular HGB Conc 33.0 % (30-36); Mean Corpuscular Hemoglobin 29.8 PG (26-34); Mean Corpuscular Volume 90.5 fL (80-100); Platelet Count 219 X10^3/uL (150-400)
[2025-03-06 19:06] LABS: Alanine Aminotransferase 30 IU/L (<35); Albumin 3.7 g/dL (3.5-5.0); Albumin Globulin Ratio 1.1 (1.0-2.8); Alkaline Phosphatase 74 U/L (38-126); Blood Urea Nitrogen 17 mg/dL (7-17); Calcium 9.0 mg/dL (8.4-10.2); Carbon Dioxide 27 mmol/L (22-32); Chloride 102 mmol/L (98-107); Estimated Glomerular Filt Rate > 60 mL/min (>60); Globulin 3.3 g/dL (1.7-4.1); Glucose 238 mg/dL (70-99); HEMOLYSIS 16 (0-50); Potassium 4.2 mmol/L (3.4-5.1); Sodium 140 mmol/L (137-145); Total Protein 7.0 g/dL (6.3-8.2)
[2025-03-06 19:38] LABS: Thyroid Stimulating Hormone 3.11 uIU/mL (0.47-4.68)
== END ==
PROVIDERS: Family Provider Family Medicine; PCP Family Medicine; Visit Provider Family Medicine
DX: R05.3 Chronic cough (principal); E11.42 Type 2 diabetes mellitus with diabetic polyneuropathy; I69.354 Hemiplegia and hemiparesis following cerebral infarction affecting left non-dominant side; I10 Essential (primary) hypertension
CPT/HCPCS: 80053; 84443; 85025; 85651; 86140

== ENCOUNTER → 2025-03-08 06:00 | Outpatient (CLI) | payer MEDICARE, MEDICAID, SELFPAY ==
[2025-03-06 13:25] VITALS: BMI 33.4
[2025-03-08 20:29] LABS: Microalbumi Creatinin Ratio Ur 51.0 ug/mg CR (<30)
== END ==
PROVIDERS: Family Provider Family Medicine; PCP Family Medicine; Visit Provider Family Medicine
DX: E11.42 Type 2 diabetes mellitus with diabetic polyneuropathy (principal)
CPT/HCPCS: 82043; 82570

== ENCOUNTER → 2025-05-02 09:17 | Outpatient (CLI) | payer MEDICARE, MEDICAID, SELFPAY ==
[2025-03-06 13:25] VITALS: BMI 33.4
[2025-05-02 19:22] LABS: Hemoglobin A1C% w Est Avg Glu 6.0 % (4.0-6.0)
[2025-05-02 19:25] LABS: Cholesterol 90 mg/dL (140-199); HDL Cholesterol 31 mg/dL (40-60); Triglycerides 122 mg/dL (35-150)
== END ==
PROVIDERS: Family Provider Family Medicine; PCP Family Medicine; Visit Provider Family Medicine
DX: E11.49 Type 2 diabetes mellitus with other diabetic neurological complication (principal)
CPT/HCPCS: 80061; 83036